=== PATIENT | female | born 1945 | race Caucasian/White ===

== ENCOUNTER 2018-04-24 22:27 | Inpatient (IN) | payer OTHER ==
[2018-04-24] MEDS ORDERED: ONDANSETRON 4 MG/2 ML VIAL ONE (23:08)
[2018-04-24 23:24] LABS: Absolute Lymphocytes (CBC) 3.3 K/uL (0.7-4.9); Absolute Monocytes 0.4 K/uL (0.1-1.3); Absolute Neutrophil 5.5 K/uL (1.8-8.0); Basophils % 0.5 % (0-1.3); Eosinophils % 1.7 % (0-4.4); Hematocrit 38.5 % (36.0-45.0); Lymphocytes % 34.7 % (15.3-44.8); MCH 29.7 pg (27.0-35.0); MCV 86.3 fL (80-100); MPV 9.2 fL (7.6-11.3); Monocytes % 4.2 % (3.3-12.3); RBC Red Blood Cell Count 4.46 M/uL (3.86-4.86)
[2018-04-24] MEDS ORDERED: FENTANYL CITR 100 MCG/2 ML ONE (23:35)
[2018-04-24] MEDS ORDERED: FAMOTIDINE 20 MG/2 ML VIAL IV ONE (23:36)
[2018-04-24] MEDS ORDERED: NA CHLORIDE 0.9% 1,000 ML ONE (23:36)
[2018-04-24 23:42] LABS: Albumin 4.2 g/dL (3.4-5.0); Bilirubin Direct 0.1 mg/dL (0-0.2); Bilirubin Total 0.4 mg/dL (0.2-1.0); Potassium 3.5 mmol/L (3.5-5.1); Protein, Total 8.1 g/dL (6.4-8.2)
--- NOTE | 2018-04-25 03:50 | EDPHYS ---
Physician Documentation [facility] Name: Angle Hammer Age: 72 yrs Sex: Female : 1945 Arrival Date: 04/24/2018 Time: 22:27 Bed 18 Private MD: ED Physician Larry Lynn HPI: 04/24 23:25 This 72 yrs old Female presents to ER via Wheelchair with complaints of cp Abdominal Pain, Vomiting. 23:25 The patient presents with abdominal pain in the epigastric area, in the upper abdomen. cp Onset: The symptoms/episode began/occurred tonight about 1930. Associated signs and symptoms: Pertinent positives: nausea and vomiting, Pertinent negatives: blood in stools, chest pain, constipation, diarrhea, fever, headache, vomiting blood. Severity of pain: in the emergency department the pain is unchanged despite home interventions. Historical: - Allergies: 22:51 No Known Allergies; bb - Home Meds: 22:51 amlodipine 2.5 mg tab 1 tab once daily [Active]; aspirin 81 mg Oral chew 1 tab once bb daily [Active]; atorvastatin 20 mg Oral tab 1 tab once daily [Active]; gemfibrozil 600 mg Oral tab 1 tab 2 times per day [Active]; glimepiride 1 mg Oral tab BID [Active]; lisinopril 5 mg Oral tab 1 tab once daily [Active]; metformin 850 mg Oral tab 1 tab 2 times per day [Active]; omeprazole 40 mg Oral cpDR 1 cap once daily [Active]; - PMHx: 22:51 Diabetes - NIDDM; High Cholesterol; Hypertension; bb - PSHx: 22:51 Hysterectomy; bb - Immunization history:: Adult Immunizations up to date. - Social history:: Smoking status: Patient/guardian denies using tobacco, Patient/guardian denies using alcohol, street drugs. - Ebola Screening: : No symptoms or risks identified at this time. ROS: 23:30 Constitutional: Negative for body aches, chills, fever, poor PO intake. cp 23:30 Eyes: Negative for injury, pain, redness, and discharge. cp 23:30 ENT: Negative for drainage from ear(s), ear pain, sore throat, difficulty swallowing, difficulty handling secretions. 23:30 Cardiovascular: Negative for chest pain, edema, palpitations. 23:30 Respiratory: Negative for cough, shortness of breath, wheezing. 23:30 Abdomen/GI: Positive for abdominal pain, nausea, vomiting, of the epigastric area and upper abdomen, Negative for diarrhea, constipation, anorexia, hematemesis, black/tarry stool, rectal bleeding. 23:30 Back: Negative for pain at rest, pain with movement, radiated pain. 23:30 : Negative for urinary symptoms. 23:30 Skin: Negative for cellulitis, rash. 23:30 Neuro: Negative for altered mental status, headache, syncope, near syncope, weakness. 23:30 All other systems are negative. Exam: 23:10 ECG was reviewed by the Attending Physician. cp 23:35 Constitutional: The patient appears in no acute distress, alert, awake, cp non-diaphoretic, non-toxic, well developed, well nourished, uncomfortable. 23:35 Head/Face: Normocephalic, atraumatic. cp 23:35 Eyes: Periorbital structures: appear normal, Pupils: equal, round, and reactive to light and accomodation, Extraocular movements: intact throughout, Conjunctiva: normal, no exudate, no injection, Sclera: no appreciated abnormality, Lids and lashes: appear normal, bilaterally. 23:35 ENT: External ear(s): are unremarkable, Nose: is normal, Mouth: Lips: moist, Oral mucosa: moist, Posterior pharynx: is normal, airway is patent, no erythema, no exudate, Voice: is normal. 23:35 Neck: ROM/movement: is normal, is supple, without pain, no range of motions limitations, no nuchal rigidity. 23:35 Chest/axilla: Inspection: normal, Palpation: is normal, no crepitus, no tenderness. 23:35 Cardiovascular: Rate: normal, Rhythm: regular, Pulses: Pulses are 2+ in right radial artery and left radial artery. Edema: is not appreciated, JVD: is not appreciated. 23:35 Respiratory: the patient does not display signs of respiratory distress, Respirations: normal, no use of accessory muscles, no retractions, no splinting, no tachypnea, labored breathing, is not present, Breath sounds: are clear throughout, no decreased breath sounds, no stridor, no wheezing. 23:35 Abdomen/GI: Inspection: abdomen appears normal, Bowel sounds: active, all quadrants, Palpation: soft, in all quadrants, moderate abdominal tenderness, in the epigastric area, rebound tenderness, is not appreciated, voluntary guarding, is elicited in the epigastric area, involuntary guarding, is not appreciated. 23:35 Back: CVA tenderness, is absent. 23:35 Skin: cellulitis, is not appreciated, no rash present. 23:35 Neuro: Orientation: to person, place \T\ time. Mentation: lucid, able to follow commands, Cerebellar function: is grossly normal, Motor: moves all fours, strength is normal, Sensation: no obvious gross deficits. Vital Signs: 22:51 BP 136 / 117; Pulse 78; Resp 20 S; Temp 97.7(O); Pulse Ox 97% on R/A; Weight 68.49 kg bb (R); Height 5 ft. 2 in. (157.48 cm) (R); Pain 10/10; 23:50 BP 113 / 50; Pulse 70; Resp 18; Pulse Ox 97% ; ea 04/25 00:52 BP 133 / 60; Pulse 74; Resp 18; Pulse Ox 99% ; Pain 5/10; ea 02:48 BP 118 / 65; Pulse 79; Resp 18; Pulse Ox 96% ; ea 03:30 BP 118 / 61; Pulse 74; Resp 18; Pulse Ox 97% on R/A; ea 04:55 BP 136 / 65; Pulse 79; Resp 16; Temp 97.8(O); Pulse Ox 94% on R/A; ea 04/24 22:51 Body Mass Index 27.62 (68.49 kg, 157.48 cm) bb MDM: 04/24 22:49 Patient medically screened. cp 23:30 Differential diagnosis: bowel obstruction, cholecystitis, Cholelithiasis, cp diverticulitis, gastritis, gastroesophageal reflux disease, GI Bleed, Mesenteric ischemia or infarction, pancreatitis, Peptic Ulcer Disease, Perf. Duodenal Ulcer, Perf. Gastric Ulcer, Pyelonephritis, Ureterolithiasis, urinary tract infection, acute MN. 04/25 03:47 Data reviewed: vital signs, nurses notes, lab test result(s), EKG, radiologic studies, cp CT scan, plain films, and as a result, I will admit patient. Test interpretation: by ED physician or midlevel provider: ECG, plain radiologic studies. Counseling: I had a detailed discussion with the patient and/or guardian regarding: the historical points, exam findings, and any diagnostic results supporting the discharge/admit diagnosis, lab results, radiology results, the need for further work-up and treatment in the hospital. Response to treatment: the patient's symptoms have markedly improved after treatment. 04/24 22:48 Order name: Amylase, Serum; Complete Time: 03:00 04/24 22:48 Order name: Basic Metabolic Panel; Complete Time: 03:00 04/25 03:01 Interpretation: Normal except: GLUC 163; GFR 61. 04/24 22:48 Order name: CBC with Diff; Complete Time: 03:00 04/25 03:01 Interpretation: Normal except: PLT 426. 04/24 22:48 Order name: Hepatic Function; Complete Time: 03:00 04/25 03:01 Interpretation: Normal except: ALK 132; GLOB 3.9. 04/24 22:48 Order name: Lipase; Complete Time: 03:00 04/24 22:48 Order name: Urine Microscopic Only 04/24 23:18 Order name: Troponin I; Complete Time: 03:00 04/25 03:01 Interpretation: Within normal limits: TROP < 0.02. 04/25 03:58 Order name: Basic Metabolic Panel [facility] 04/25 03:58 Order name: Basic Metabolic Panel [facility] 04/25 03:58 Order name: CBC with Automated Diff [facility] 04/25 03:58 Order name: CBC with Automated Diff [facility] 04/25 03:58 Order name: Lipase [facility] 04/25 03:58 Order name: Lipase [facility] 04/24 23:18 Order name: XRAY Chest (1 view) 04/24 23:18 Order name: CT Abd/Pelvis - W/Contrast 04/24 23:18 Order name: EKG; Complete Time: 23:18 04/25 03:58 Order name: CONS Physician Consult [facility] 04/25 03:58 Order name: NPO [facility] 04/25 03:58 Order name: Liver (Hepatic) Function [facility] 04/25 03:58 Order name: Liver (Hepatic) Function [facility] 04/25 04:47 Order name: Urine Dipstick--Ancillary (enter results) rg2 04/24 22:48 Order name: IV Saline Lock; Complete Time: 23:42 04/24 22:48 Order name: Labs collected and sent; Complete Time: 23:42 ea 04/24 22:48 Order name: Urine Dipstick-Ancillary (obtain specimen); Complete Time: 05:09 ea 04/24 23:18 Order name: EKG - Nurse/Tech; Complete Time: 23:42 cp 04/25 03:47 Order name: NG Tube; Complete Time: 04:48 cp 04/25 03:47 Order name: NPO; Complete Time: 03:52 cp EC/17 23:10 Rate is 72 beats/min. Rhythm is regular. MO interval is normal. QRS interval is normal. cp QT interval is normal. Interpreted by me. Reviewed by me. Administered Medications: 23:24 Drug: Zofran 4 mg Route: IVP; Site: left antecubital; 04/25 00:49 Follow up: Response: No adverse reaction 04/24 23:41 Drug: Pepcid 20 mg Route: IVP; Site: left antecubital; ea 04/25 00:48 Follow up: Response: No adverse reaction 04/24 23:42 Drug: NS 0.9% 1000 ml Route: IV; Rate: 75 ml/hr; Site: left antecubital; ea 04/25 05:06 Follow up: IV Status: Infusion continued upon admission 04/24 23:42 Drug: NS 0.9% 1000 ml Route: IV; Rate: 1 bolus; Site: left antecubital; ea 04/25 00:45 Follow up: Response: No adverse reaction; IV Status: Completed infusion; IV Intake: ea 1000ml 00:50 Follow up: Response: No adverse reaction; IV Intake: 1000ml 04/24 23:42 Drug: fentaNYL (PF) 25 mcg Route: IVP; Site: left antecubital; ea 04/25 00:00 Follow up: Response: No adverse reaction; Pain is decreased ea 00:35 Drug: fentaNYL (PF) 25 mcg Route: IVP; Site: left antecubital; ea 01:00 Follow up: Response: No adverse reaction; Pain is decreased ea 04:00 Drug: Ciprofloxacin 400 mg Volume: 200 ml; Route: IVPB; Infused Over: 60 mins; Site: ea left antecubital; 05:00 Follow up: Response: No adverse reaction; IV Status: Infusion continued upon admission ea 04:47 Drug: metroNIDAZOLE 500 mg Volume: 100 ml; Route: IVPB; Infused Over: 30 mins; Site: ea left antecubital; 04:59 Follow up: Response: No adverse reaction; IV Status: Infusion continued upon admission ea Disposition: 04/25/18 03:49 Hospitalization ordered by Liam Mccray for Inpatient Admission. Preliminary diagnosis is Small Bowel Obstruction. - Bed requested for Telemetry/MedSurg (Inpatient). - Status is Inpatient Admission. ea - Condition is Stable. - Problem is new. - Symptoms have improved. UTI on Admission? No Addendum: 04/27/2018 08:58 Co-signature as Attending Physician, Larry Lynn MD I agree with the assessment and c doyle plan of care. Signatures: Dispatcher [facility] Orly Storm RN RN mw Anderson, Corey, MD MD cha Ballard, Brenda, RN RN Larry Segura PA PA cp Antunez, Elena, RN RN ea Corrections: (The following items were deleted from the chart) 04/24 23:22 22:48 Creatinine for Radiology+C.LAB.BRZ ordered. [facility] 04/25 03:58 03:49 Hospitalization Ordered by Liam Mccray MD for Inpatient Admission. Preliminary diagnosis is Small Bowel Obstruction. Bed requested for Telemetry/MedSurg (Inpatient). Status is Inpatient Admission. Condition is Stable. Problem is new. Symptoms have improved. UTI on Admission? No. cp 05:09 03:58 04/25/2018 03:49 Hospitalization Ordered by Liam Mccray MD for Inpatient ea Admission. Preliminary diagnosis is Small Bowel Obstruction. Bed requested for Telemetry/MedSurg (Inpatient). Status is Inpatient Admission. Condition is Stable. Problem is new. Symptoms have improved. UTI on Admission? No. mw
--- NOTE | 2018-04-25 03:50 | ER ---
Nurse's Notes [facility] Name: Angle Hammer Age: 72 yrs Sex: Female : 1945 Arrival Date: 04/24/2018 Time: 22:27 Bed 18 Private MD: Diagnosis: Small Bowel Obstruction Presentation: 04/24 22:45 Presenting complaint: Patient states: she is having upper abdominal pain and vomiting bb since 1929 this evening spouse states pt became diaphoretic and pale and vomited on the way to the ED. Transition of care: patient was not received from another setting of care. Onset of symptoms was April 24, 2018 at 19:30. Risk Assessment: Do you want to hurt yourself or someone else? Patient reports no desire to harm self or others. Initial Sepsis Screen: Does the patient meet any 2 criteria? No. Patient's initial sepsis screen is negative. Does the patient have a suspected source of infection? No. Patient's initial sepsis screen is negative. Care prior to arrival: None. 22:45 Method Of Arrival: Wheelchair bb 22:45 Acuity: ARELI 3 bb Historical: - Allergies: 22:51 No Known Allergies; bb - Home Meds: 22:51 amlodipine 2.5 mg tab 1 tab once daily [Active]; aspirin 81 mg Oral chew 1 tab once bb daily [Active]; atorvastatin 20 mg Oral tab 1 tab once daily [Active]; gemfibrozil 600 mg Oral tab 1 tab 2 times per day [Active]; glimepiride 1 mg Oral tab BID [Active]; lisinopril 5 mg Oral tab 1 tab once daily [Active]; metformin 850 mg Oral tab 1 tab 2 times per day [Active]; omeprazole 40 mg Oral cpDR 1 cap once daily [Active]; - PMHx: 22:51 Diabetes - NIDDM; High Cholesterol; Hypertension; bb - PSHx: 22:51 Hysterectomy; bb - Immunization history:: Adult Immunizations up to date. - Social history:: Smoking status: Patient/guardian denies using tobacco, Patient/guardian denies using alcohol, street drugs. - Ebola Screening: : No symptoms or risks identified at this time. Screenin/18 00:51 Abuse screen: Denies threats or abuse. Nutritional screening: No deficits noted. ea Tuberculosis screening: No symptoms or risk factors identified. Fall Risk IV access (20 points). Assessment: 04/24 22:50 General: Appears uncomfortable, Behavior is calm, cooperative, appropriate for age. ea Pain: Complains of pain in epigastric area Pain radiates to mid back area, left mid back and right mid back Pain currently is 6 out of 10 on a pain scale. Quality of pain is described as aching. Neuro: Level of Consciousness is awake, alert, obeys commands, Oriented to person, place, time, situation. Cardiovascular: Heart tones S1 S2 present Patient's skin is warm and dry. Respiratory: Airway is patent Respiratory effort is even, unlabored, Respiratory pattern is regular, symmetrical, Breath sounds are clear bilaterally. GI: Abdomen is non-distended, Bowel sounds present X 4 quads. Abd is soft and non tender X 4 quads. : No signs and/or symptoms were reported regarding the genitourinary system. EENT: No signs and/or symptoms were reported regarding the EENT system. Derm: Skin is dry, Skin is pale, Skin temperature is warm. Musculoskeletal: No signs and/or symptoms reported regarding the musculoskeletal system. 23:51 Reassessment: Patient and/or family updated on plan of care and expected duration. Pain ea level reassessed. Patient is alert, oriented x 3, equal unlabored respirations, skin warm/dry/pink. Pt reports pain has decreased. 04/25 00:35 Reassessment: Pt complaining of pain to epigastric area, provider notified, medication ea order obtained, medication administered. Pt tolerated well. 01:50 Reassessment: Patient and/or family updated on plan of care and expected duration. Pain ea level reassessed. Patient is alert, oriented x 3, equal unlabored respirations, skin warm/dry/pink. Pt left to CT. 02:47 Reassessment: Patient and/or family updated on plan of care and expected duration. Pain ea level reassessed. Patient is alert, oriented x 3, equal unlabored respirations, skin warm/dry/pink. Pt returned form radiology. 03:30 Reassessment: Patient and/or family updated on plan of care and expected duration. Pain ea level reassessed. Patient is alert, oriented x 3, equal unlabored respirations, skin warm/dry/pink. 04:56 Reassessment: Patient and/or family updated on plan of care and expected duration. Pain ea level reassessed. Patient is alert, oriented x 3, equal unlabored respirations, skin warm/dry/pink. Report called to Melisa AVILA on second floor. Vital Signs: 04/24 22:51 BP 136 / 117; Pulse 78; Resp 20 S; Temp 97.7(O); Pulse Ox 97% on R/A; Weight 68.49 kg bb (R); Height 5 ft. 2 in. (157.48 cm) (R); Pain 10/10; 23:50 BP 113 / 50; Pulse 70; Resp 18; Pulse Ox 97% ; ea 04/25 00:52 BP 133 / 60; Pulse 74; Resp 18; Pulse Ox 99% ; Pain 5/10; ea 02:48 BP 118 / 65; Pulse 79; Resp 18; Pulse Ox 96% ; ea 03:30 BP 118 / 61; Pulse 74; Resp 18; Pulse Ox 97% on R/A; ea 04:55 BP 136 / 65; Pulse 79; Resp 16; Temp 97.8(O); Pulse Ox 94% on R/A; ea 04/24 22:51 Body Mass Index 27.62 (68.49 kg, 157.48 cm) bb ED Course: 04/24 22:27 Patient arrived in ED. ds1 22:44 Lisa Yusuf, MARGARITA is Primary Nurse. ea 22:49 Triage completed. bb 22:49 Larry Daley PA is PHCP. cp 22:49 Larry Lynn MD is Attending Physician. cp 22:49 Inserted saline lock: 20 gauge in left antecubital area, using aseptic technique. Blood ea collected. 22:51 Arm band placed on Patient placed in an exam room, on a stretcher, on pulse oximetry. bb Family accompanied patient. 23:31 X-ray completed. Portable x-ray completed in exam room. Patient tolerated procedure ml well. 23:32 XRAY Chest (1 view) In Process Unspecified. EDMS 23:50 Patient has correct armband on for positive identification. Bed in low position. Call ea light in reach. Side rails up X 1. 04/25 01:[address] via stretcher. kw1 02:03 CT completed. Patient tolerated procedure well. Patient moved back from CT. kw1 02:05 CT Abd/Pelvis - W/Contrast In Process Unspecified. EDMS 03:48 Liam Mccray MD is Hospitalizing Provider. cp 04:56 No provider procedures requiring assistance completed. Patient admitted, IV remains in ea place. Administered Medications: 04/24 23:24 Drug: Zofran 4 mg Route: IVP; Site: left antecubital; ea 04/25 00:49 Follow up: Response: No adverse reaction ea 04/24 23:41 Drug: Pepcid 20 mg Route: IVP; Site: left antecubital; ea 04/25 00:48 Follow up: Response: No adverse reaction ea 04/24 23:42 Drug: NS 0.9% 1000 ml Route: IV; Rate: 75 ml/hr; Site: left antecubital; ea 04/25 05:06 Follow up: IV Status: Infusion continued upon admission ea 04/24 23:42 Drug: NS 0.9% 1000 ml Route: IV; Rate: 1 bolus; Site: left antecubital; ea 04/25 00:45 Follow up: Response: No adverse reaction; IV Status: Completed infusion; IV Intake: ea 1000ml 00:50 Follow up: Response: No adverse reaction; IV Intake: 1000ml ea 04/24 23:42 Drug: fentaNYL (PF) 25 mcg Route: IVP; Site: left antecubital; ea 04/25 00:00 Follow up: Response: No adverse reaction; Pain is decreased ea 00:35 Drug: fentaNYL (PF) 25 mcg Route: IVP; Site: left antecubital; ea 01:00 Follow up: Response: No adverse reaction; Pain is decreased ea 04:00 Drug: Ciprofloxacin 400 mg Volume: 200 ml; Route: IVPB; Infused Over: 60 mins; Site: ea left antecubital; 05:00 Follow up: Response: No adverse reaction; IV Status: Infusion continued upon admission ea 04:47 Drug: metroNIDAZOLE 500 mg Volume: 100 ml; Route: IVPB; Infused Over: 30 mins; Site: ea left antecubital; 04:59 Follow up: Response: No adverse reaction; IV Status: Infusion continued upon admission ea Intake: 00:45 IV: 1000ml; Total: 1000ml. ea 00:50 IV: 1000ml; Total: 2000ml. ea Outcome: 03:49 Decision to Hospitalize by Provider. cp 04:57 Admitted to Med/surg accompanied by tech, room 212, Report called to Melisa AVILA ea 04:57 Condition: stable 05:09 Patient left the ED. albert Signatures: Dispatcher [employer] EDNerissa Klein ds1 Zari Coon RN RN bb Lopez, Melissa ml Page, Corey, PA PA cp Antunez, Elena, RN RN ea Wilhelm, Kimberly kw1
[2018-04-25] MEDS ORDERED: ONDANSETRON 4 MG/2 ML VIAL IV PRN (03:52)
[2018-04-25] MEDS ORDERED: ACETAMINOPHEN 500 MG TAB PO PRN (03:52)
[2018-04-25] MEDS ORDERED: LIDOCAINE VISCOUS 2% SOLN 15 ML UDC ONE (03:53)
[2018-04-25] MEDS ORDERED: D50W 25 GM/50 ML SYRINGE IV PRN ×2 (03:57→07:33)
[2018-04-25] MEDS ORDERED: GLUCAGON 1 MG/VIAL IM PRN ×2 (03:57→07:33)
[2018-04-25] MEDS ORDERED: METRONIDAZOLE 500mg IVPB 500 MG/100 ML BAG IV ONE (03:58)
[2018-04-25] MEDS ORDERED: Ciprofloxacin 200mg IV 200 MG/100 ML IV.SOLN. IV ONE (03:58)
[2018-04-25 05:34] LABS: Urine Bacteria <20 /HPF (<20); Urine Culture Reflex Order NOT NEEDED; Urine RBC NONE SEEN /HPF (NONE SEEN)
[2018-04-25] MEDS: NA CHLORIDE 0.9% 1,000 ML IV SCH ×3 (06:00→21:37)
--- NOTE | 2018-04-25 06:01 | EKG ---
Test Date: 2018-04-24 Test Time: 23:02:29 Band Sawing Machine Operator: MILADIS MEASUREMENT RESULTS: Intervals: Rate: 72 IL: 128 QRSD: 82 QT: 412 QTc: 451 [place]: P: 1 IL: 128 QRS: -4 T: 41 INTERPRETIVE STATEMENTS: Normal sinus rhythm Moderate voltage criteria for LVH, may be normal variant Borderline ECG Compared to ECG 03/31/2016 18:30:34 Left ventricular hypertrophy now present T-wave abnormality no longer present Electronically Signed On 04-25-18 06:01:17 CDT by Phillip Luna
[2018-04-25] MEDS ORDERED: FENTANYL CITR 100 MCG/2 ML IV ONE (06:12)
[2018-04-25] MEDS ORDERED: FENTANYL CITR 100 MCG/2 ML IV PRN (06:13)
[2018-04-25] MEDS ORDERED: INSULIN -REGULAR HUMAN 50 UNIT/0.5 ML ML SQ SCH (07:30)
[2018-04-25] MEDS ORDERED: PNEUMOCOCCAL VACCINE 0.5 ML IMVAC ONE (10:00)
--- NOTE | 2018-04-25 10:13 | RAD REPORT ---
EXAM DESCRIPTION: CT - Abdomen Pelvis W Contrast - 04/25/2018 7:04 am CLINICAL HISTORY: Abdominal pain. Upper abdominal pain since 04/06 this evening COMPARISON: March 2018 TECHNIQUE: Computed axial tomography of the abdomen and pelvis was obtained. 100 cc Isovue-300 is ad ministered intravenously. Oral contrast was given.A a preliminary report was generated by ROLI and reviewed prior to this dictation All CT scans are performed using dose optimization technique as appropriate and may include automated exposure control or mA/KV adjustment according to patient size. FINDINGS: Fatty infiltration liver is present. Spleen, pancreas, adrenals and kidneys appear unremarkable. Several loops of small bowel are mildly dilated within left abdomen. Stranding is present within the adjacent mesentery with small amount of fluid. Diverticula are noted. The wall of the distal stomach appears thickened IMPRESSION: Mild dilatation of several loops of small bowel probably either representing an enteriti s or diverticulitis. A partial small bowel obstruction is considered less likely and can be monitored on followup abdominal plain film series. Apparent thickening of the wall of the distal stomach may be secondary to incomplete distention or ga stritis
--- NOTE | 2018-04-25 11:22 | RAD REPORT ---
EXAM DESCRIPTION: Janki Single View04/24/2018 11:32 pm CLINICAL HISTORY: Abdominal pain COMPARISON: 2015 FINDINGS: The lungs appear clear of acute infiltrate. The heart is normal size IMPRESSION: No acute abnormalities displayed
[2018-04-25] MEDS: INSULIN -REGULAR HUMAN 50 UNIT/0.5 ML ML SQ SCH ×2 (12:00→18:00)
[2018-04-25] MEDS ORDERED: ENOXAPARIN 40 MG/0.4 ML SQ ONE (12:19)
--- NOTE | 2018-04-25 12:52 | P.CNS ---
Date of Consult: 04/25/18 PC: This 72-year-old female presents emergency room with severe abdominal pain nausea vomiting for diagnosis and treatment. HPC: Patient apparently had a nice dinner, roast, potatoes beans and Septra. Shortly thereafter began experiencing severe abdominal pain with nausea and vomiting. She was brought to the emergency room for evaluation. PMH: Hypercholesterolemia, hypertension, diabetes PSHx: Hysterectomy in the past SOC: No known allergies SYS REVIEW: States he has otherwise been healthy, no cough, wheeze, shortness of breath. No chest pain or palpitations. No urinary complaints. Her last colonoscopy was about 3 years ago O/E awake alert comfortable at the moment HEENT: Nasogastric tube in place, minimal in collection canister Chest: Chest movement equal bilaterally ABD: Soft nontender, nondistended LOCO: Intact DATA: White cell count within normal limits, CT scan suggests possible early SBO IMPRESSION: Benign abdomen at the moment PLAN: Hopefully slow mineral oil down here nasogastric tube in reviewed for 4 hr. We will Dc the NG tube, and ambulate the patient. I mention this patient will be discharged soon as she does not seem to have a surgical abdomen.
[2018-04-25] MEDS: METRONIDAZOLE 500mg IVPB 500 MG/100 ML BAG IV SCH ×2 (13:57→18:04)
[2018-04-25] MEDS ORDERED: MINERAL OIL 30 ML UCUP FT ONE ×2 (15:00→21:00)
--- NOTE | 2018-04-25 16:02 | RAD REPORT ---
EXAM DESCRIPTION: RAD - Abdomen Acute Series - 04/25/2018 3:30 pm CLINICAL HISTORY: Abdominal pain FINDINGS: Free air is not seen beneath the diaphragm. The lungs appear clear. A nasogastric tube is coiled within the proximal stomach. The tip lies near the GE junction. The tube should be retracted approximately 15 centimeters and then advanced Contrast is present within the colon. Dilated air-filled small bowel is not seen
[2018-04-25] MEDS: CIPROFLOXACIN 400mg IV 400 MG/200 ML BAG IV SCH (21:37)
--- NOTE | 2018-04-26 00:38 | HP ---
Date of Admission: 04/25/2018 Chief Complaint: Abdominal pain, nausea, vomiting. History Of Present Illness: A 72-year-old female patient who came into emergency room with acute ons et of abdominal pain within 2 hours after she ate her dinner last night. Pain was in left upper quad rant and epigastric region. Initially, pain was intermittent and then it was continuous. She had so me nausea, vomiting at home. After she came into emergency room, she vomited some more and after fur ther evaluation she was admitted to the hospital under my service. She was feeling better this morni ng. The patient denies any constipation or diarrhea. She normally has bowel movement every day. He r last bowel movement at home was yesterday morning and she did have bowel movement during nighttime after she came into her room from emergency room. Allergies: NO KNOWN ALLERGIES. Review of Systems: GI: As mentioned above. All other systems reviewed and negative. Medications: List reviewed. According to office records, she is on amlodipine 2.5 mg p.o. daily; as pirin 81 mg p.o. daily; atorvastatin 20 mg p.o. daily; gemfibrozil 600 mg p.o. 2 times a day; glimepi ride 2 mg and she takes half a tablet 2 times a day; lisinopril 5 mg p.o. daily; metformin 850 mg p.o . 2 times a day; multivitamin daily; fish oil daily; omeprazole 40 mg p.o. daily. Past Medical History: Significant for mixed hyperlipidemia, type 2 diabetes mellitus, gastroesophage al reflux disease, diverticulosis, hypertension, anemia, osteoarthritis at multiple sites. Past Surgical History: Significant for hysterectomy. Social History: Negative for smoking or alcohol use. Family History: Significant for lung cancer, hypertension, hyperlipidemia, COPD. Physical Examination: Vital Signs: When I first saw her this morning, temperature 97.1, pulse 82, respiratory rate 16, blo od pressure 131/60, oxygen saturation 93%. Height 5 feet 2 inches, weight 153 pounds. General: Awake, alert, oriented, not in distress. HEENT: Head atraumatic, normocephalic. Conjunctivae nonerythematous. Sclerae white. Mouth, no thr ush or edema noted. Ears/Nose, no mass, lesion, discharge noted. Neck: Supple. No JVD, lymph nodes, bruit, thyromegaly noted. Lungs: Bilateral good equal air entry. Clear to auscultation. No rhonchi. No rales. Heart: Normal heart sounds, no murmur or gallop. Abdomen: Soft. Appears slightly distended. No guarding, rigidity. No rebound tenderness. No hepa tosplenomegaly, bruit. Presence of left upper quadrant tenderness present. No rebound tenderness. Bowel sounds normoactive. Extremities: No leg edema. No calf tenderness. Skin: No rash, ulcer, cellulitis. Lymphatics: No lymph node enlargement in neck, supraclavicular, infraclavicular region. Neuro: No focal neurological deficit. Chest: Unremarkable. External Genitalia: Deferred. Rectal: Deferred. Laboratory Data: White count 9.4, hemoglobin 13.2, platelets 426. Sodium 141, potassium 3.5, chlori de 104, bicarb 27, BUN 14, creatinine 0.90, glucose 163. Liver function tests unremarkable. Alkalin e phosphatase 132, troponin less than 0.02, lipase 94, amylase 27. Urinalysis unremarkable. CAT sca n of abdomen and pelvis done in emergency room shows mild dilatation of several loops of small bowel, probably either representing enteritis or diverticulitis. Partial small bowel obstruction is consid ered less likely. Impression: 1.Enteritis, infectious. 2.Rule out bowel obstruction. 3.Hypertension. 4.Mixed hyperlipidemia. 5.Type 2 diabetes mellitus. 6.Gastroesophageal reflux disease. 7.Osteoarthritis, multiple sites. Plan: Admit the patient to hospital for further evaluation and management of this problem. The agatha ent is appropriate for inpatient and is expected to spend 2 midnights in the hospital. She has IV fl uid, NG tube in place, IV antibiotics in placed. We will continue current medications per order. Ho de medications will be continued per order. We will get abdominal x-ray done today flat and upright, and general surgeon, Dr. Grace has been consulted, we will follow up with him. Depending on abdom inal x-ray and Dr. Grace's recommendation, we will decide at what point to remove NG tube. The pat ient was advised to move her both lower extremity as taught today to reduce chances of DVT and we garth l start Lovenox injection 40 mg subcutaneous injection daily for DVT prophylaxis. Details and plan o f treatment discussed with her. NATHEN/GREGORY Voice ID: [id number]
[2018-04-26] MEDS: METRONIDAZOLE 500mg IVPB 500 MG/100 ML BAG IV SCH ×4 (00:51→17:57)
[2018-04-26 05:27] LABS: Absolute Lymphocytes (CBC) 1.7 K/uL (0.7-4.9); Absolute Monocytes 0.2 K/uL (0.1-1.3); Absolute Neutrophil 2.9 K/uL (1.8-8.0); Basophils % 0.3 % (0-1.3); Eosinophils % 1.6 % (0-4.4); Hematocrit 28.3 % (36.0-45.0); Lymphocytes % 34.9 % (15.3-44.8); MCH 29.3 pg (27.0-35.0); MCV 87.4 fL (80-100); MPV 8.6 fL (7.6-11.3); Monocytes % 4.7 % (3.3-12.3); RBC Red Blood Cell Count 3.23 M/uL (3.86-4.86)
[2018-04-26 05:47] LABS: ALT/SGPT 22 U/L (12-78); AST/SGOT 32 U/L (15-37); Alkaline Phosphatase 99 U/L (45-117); BUN Blood Urea Nitrogen 9 mg/dL (7-18); Bicarbonate 28 mmol/L (21-32); Bilirubin Direct < 0.1 mg/dL (0-0.2); Bilirubin Total 0.3 mg/dL (0.2-1.0); Glucose Level 110 mg/dL (74-106); Lipase 44 U/L (73-393); Protein, Total 5.8 g/dL (6.4-8.2); Sodium Level 145 mmol/L (136-145)
[2018-04-26 05:51] LABS: Potassium 2.9 mmol/L (3.5-5.1)
[2018-04-26] MEDS: KCL 20 MEQ/100 mL IVPB 20 MEQ/100 ML BAG IV SCH ×3 (07:31→12:12)
[2018-04-26] MEDS ORDERED: ENOXAPARIN 40 MG/0.4 ML SQ SCH (09:00)
[2018-04-26] MEDS: CIPROFLOXACIN 400mg IV 400 MG/200 ML BAG IV SCH ×2 (09:31→21:15)
[2018-04-26] MEDS: NA CHLORIDE 0.9% 1,000 ML IV SCH ×2 (10:00→17:20)
[2018-04-26 10:53] VITALS: O2SAT 95
[2018-04-26] MEDS: INSULIN -REGULAR HUMAN 50 UNIT/0.5 ML ML SQ SCH ×3 (12:00→18:00)
--- NOTE | 2018-04-26 13:41 | P.PN ---
Date of Service: 04/26/18 S: Patient feels much better today, nasogastric tube is been removed, and she is tolerating a full liquid diet. Her pain is resolved. She states she feels much better. O: Abdomen is soft, nontender, no guarding or rebound. Does not appear to be distended. A: Symptoms of partial small bowel obstruction appear to have resolved both clinically and physically. P: Patient is having carried diet is advanced to regular. She will be reassessed in the morning a most likely discharged at that time. We have discussed her diet, and mastication of her food. She understands and will work on this at future.
--- NOTE | 2018-04-26 14:19 | PN ---
Date of Progress Note: 04/26/2018 Subjective: The patient was seen this morning for followup. No new complaints or problems reported. Her NG tube was present, but it was disconnected from suction yesterday per Dr. Grace. She denie s any nausea or vomiting. She does report having bowel movement last night. Denies any abdominal pa in. Objective: Vital signs: Reviewed. HEENT: Unremarkable. Lungs: Clear to auscultation. Heart: Sounds normal. Abdomen: Soft. Bowel sounds normal. No guarding, rigidity, tenderness, or distention. Extremities: No leg edema. Laboratory Data: White count 4.9, hemoglobin 9.5, platelets 210. Sodium 145, potassium 2.9, chlorid e 110, bicarbonate 28, BUN 9, creatinine 0.40, glucose 110. Liver function tests unremarkable. Lipa se 44. Impression: 1.Enteritis. 2.Hypokalemia. 3.Anemia. 4.Hypertension. 5.Diabetes mellitus. Plan: We will go ahead and remove NG tube. Patient does not have any evidence of bowel obstruction. Surgical consultation from Dr. Grace is appreciated. Abdominal x-ray from yesterday was unremark able. No evidence of bowel obstruction. After we remove NG tube this morning, we will start on d[place] r liquid diet and advance her diet as tolerated. I did advise her to start ambulating as she tolerat es and also we will replace electrolyte, which is her potassium as per protocol. I will see her tomorrow morning. Possi ble discharge to go home tomorrow. NATHEN/MODL Voice ID: [id number] Report ID: [id number]
[2018-04-26 19:43] LABS: BUN Blood Urea Nitrogen 7 mg/dL (7-18); Bicarbonate 30 mmol/L (21-32); Glucose Level 156 mg/dL (74-106); Potassium 4.8 mmol/L (3.5-5.1); Sodium Level 145 mmol/L (136-145)
[2018-04-26] MEDS ORDERED: AMLODIPINE 5 MG TAB PO ONE (20:43)
[2018-04-26] MEDS ORDERED: GLUCAGON 1 MG/VIAL IM PRN (21:09)
[2018-04-26] MEDS ORDERED: D50W 25 GM/50 ML SYRINGE IV PRN (21:09)
[2018-04-27] MEDS: METRONIDAZOLE 500mg IVPB 500 MG/100 ML BAG IV SCH ×2 (00:44→05:28)
[2018-04-27 05:10] VITALS: BMI 27.8
[2018-04-27 05:19] LABS: Absolute Lymphocytes (CBC) 1.7 K/uL (0.7-4.9); Absolute Monocytes 0.2 K/uL (0.1-1.3); Absolute Neutrophil 2.7 K/uL (1.8-8.0); Basophils % 0.4 % (0-1.3); Eosinophils % 2.6 % (0-4.4); Hematocrit 29.6 % (36.0-45.0); Lymphocytes % 35.1 % (15.3-44.8); MCV 87.4 fL (80-100); MPV 8.5 fL (7.6-11.3); RBC Red Blood Cell Count 3.39 M/uL (3.86-4.86)
[2018-04-27 05:27] LABS: BUN Blood Urea Nitrogen 5 mg/dL (7-18); Bicarbonate 30 mmol/L (21-32); Glucose Level 125 mg/dL (74-106); Magnesium 1.9 mg/dL (1.8-2.4); Potassium 3.9 mmol/L (3.5-5.1); Sodium Level 144 mmol/L (136-145)
[2018-04-27] MEDS ORDERED: POTASSIUM 25 MEQ EFFERV TAB PO ONE (05:35)
[2018-04-27] MEDS ORDERED: PANTOPRAZOLE 40MG TABLET PO SCH (06:00)
[2018-04-27] MEDS ORDERED: INSULIN -REGULAR HUMAN 50 UNIT/0.5 ML ML SQ SCH (07:30)
[2018-04-27] MEDS ORDERED: LISINOPRIL 5 MG TAB PO SCH (09:00)
[2018-04-27 10:17] VITALS: BP 146/62; TEMP 98.1
--- NOTE | 2018-04-28 05:46 | DS ---
Date of Discharge: 04/27/2018 Disposition: Discharged to go home. Physical Examination: HEENT: Unremarkable. Lungs: Clear to auscultation. Heart: Sounds normal. Abdomen: Soft. Bowel sounds normal. No guarding, rigidity, tenderness, or distention. Extremities: No leg edema. Laboratory Data: Initial white count 9.4, hemoglobin 13.2, platelets 426. This morning, white count 4.7, hemoglobin 10.1, platelets 223. Yesterday, hemoglobin was 9.5. Chemistry: Sodium today 144, potassium 3.9, chloride 108, bicarb 30, BUN 5, creatinine 0.50, glucose 125, magnesium . Discharge Medications And Instructions: 1.Continue all prior home medications. 2.Take Cipro 500 mg twice a day and metronidazole 500 mg 3 times a day for 1 week. 3.Follow up at my office per scheduled appointment. Hospital Course: This is a 72-year-old female patient admitted to hospital under my service after sh e came into emergency room with abdominal pain, nausea, vomiting. Please see dictated H and P for mo re information. After she was evaluated in the ER, she was admitted to the hospital. CAT scan of e abdomen done in the emergency room raised possibility of small bowel obstruction, it definitely did show some changes of enteritis. Initially, the patient was kept n.p.o. NG tube was placed in emerg ency room, which was attached to low intermittent suction, IV fluid, IV antibiotic was given. [facility] surgeon, Dr. Grace was consulted, and the patient did not require any surgical intervention. Day after admission, abdominal x-ray showed no evidence of bowel obstruction. Her NG tube was clamped a nd she did not have any nausea, vomiting, and subsequently as of yesterday NG tube was discontinued. Potassium was low yesterday, it was 2.9, and it was corrected with help of electrolyte replacement p rotocol. She was started on clear liquid diet, which was advanced as she tolerated. She started to ambulate well. DVT prophylaxis was given using Lovenox. Her condition overall improved. Abdominal pain, nausea, vomiting improved, and she was discharged to go home in stable condition with above-men tioned medication and instructions. Final Diagnoses: 1.Enteritis, infectious. 2.Hypokalemia. 3.Hypertension. 4.Anemia. 5.Mixed hyperlipidemia. 6.Type 2 diabetes mellitus. 7.Gastroesophageal reflux disease. 8.Osteoarthritis, multiple sites. NATHEN/MODL Voice ID: [id number] Report ID: [id number]
[2018-05-14 18:07] LABS: Urine Blood NEGATIVE (NEG); Urine Glucose NEGATIVE (NEG); Urine Protein TRACE (NEG)
== END 2018-04-27 09:37 | disposition home or self-care (01) | DRG 392 ==
LOC: ER 22:27 → ERHOLD 04-25 04:04 → 2ND 04-25 04:11
PROVIDERS: ADMIT Internal Medicine; ATTEND Internal Medicine
DX: A09 Infectious gastroenteritis and colitis, unspecified (principal); E87.6 Hypokalemia; I10 Essential (primary) hypertension; D64.9 Anemia, unspecified; E78.2 Mixed hyperlipidemia; E11.9 Type 2 diabetes mellitus without complications; K21.9 Gastro-esophageal reflux disease without esophagitis; M15.9 Polyosteoarthritis, unspecified; Z79.84 Long term (current) use of oral hypoglycemic drugs; Z79.82 Long term (current) use of aspirin
CPT/HCPCS: 36415; 71045; 74022; 74177; 80048; 80076; 81003; 81015; 82150; 82962; 83690; 83735; 84484; 85025; 93005; 96361; 96365; 96375; 99285; J0744; J1650; J2405; J3010; J7030; Q9967

== ENCOUNTER 2022-03-12 05:21 | Observation (INO) | payer OTHER ==
--- NOTE | 2022-03-08 08:53 | RAD REPORT ---
EXAM DESCRIPTION: RAD - Chest Pa And Lat (2 Views) - 03/08/2022 8:46 am CLINICAL HISTORY: Pre op pending knee arthroplasty COMPARISON: Abdomen Acute Series dated 04/25/2018; Chest Single View dated 04/24/2018; Chest Single Vi ew dated 03/31/2016 FINDINGS: Lines: None. Lungs: No evidence of edema or pneumonia. Left perihilar nodule versus vessel on end measuring 7 mill imeters. This was not identified on the prior radiographs. Pleural: No significant pleural effusions or pneumothorax. Cardiac: The heart size is within normal limits. Bones: No acute fractures. Other: IMPRESSION: No acute cardiopulmonary disease. Possible left perihilar nodule. Recommend nonemergent chest CT for further evaluation.
[2022-03-08 09:43] LABS: SARS-CoV-2 Antigen Rapid Res Negative (Negative)
--- NOTE | 2022-03-08 09:49 | EKG ---
Test Date: 2022-03-08 Test Time: 08:20:45 Cloth Edge Singer: EN MEASUREMENT RESULTS: Intervals: Rate: 73 MI: 130 QRSD: 84 QT: 362 QTc: 398 Toponas: P: 10 MI: 130 QRS: 4 T: 55 INTERPRETIVE STATEMENTS: Normal sinus rhythm Normal ECG Compared to ECG 04/24/2018 23:02:29 Left ventricular hypertrophy no longer present Electronically Signed On 03-08-22 09:48:28 CDT by Phillip Luna
[2022-03-08 10:09] LABS: Albumin 3.8 g/dL (3.4-5.0); Bilirubin Total 0.5 mg/dL (0.2-1.0); Potassium 3.5 mmol/L (3.5-5.1)
[2022-03-08 10:20] LABS: Absolute Lymphocytes (CBC) 1.4 K/uL (0.7-4.9); Hematocrit 33.3 % (36.0-45.0); Lymphocytes % 29.3 % (15.3-44.8); MCV 87.6 fL (80-100); MPV 8.5 fL (7.6-11.3)
[2022-03-08 10:39] LABS: Protime INR 1.05
[2022-03-08 11:05] LABS: Urine Color YELLOW (Yellow)
[2022-03-08 11:06] LABS: Urine Appearance CLEAR (Clear); Urine Bilirubin NEGATIVE (Negative); Urine Blood NEGATIVE (Negative); Urine Glucose NEGATIVE (Negative); Urine Protein NEGATIVE (Negative); Urine Urobilinogen 0.2 mg/dL (0.2-1.0)
[2022-03-08 11:07] LABS: Urine Microscopic Reflex ORDER UMIC
[2022-03-08 11:08] LABS: Urine Bacteria NONE SEEN /HPF (<20); Urine Mucus SLIGHT /HPF (NONE SEEN); Urine RBC <5 /HPF (NONE SEEN)
[2022-03-08 12:34] LABS: Blood Morphology Comment NOT SEEN (NOT SEEN); Platelet Estimate ADEQ
[2022-03-12] MEDS ORDERED: CELECOXIB 100 MG CAPSULE ONE (05:46)
[2022-03-12] MEDS ORDERED: GABAPENTIN 100 MG CAP ONE (05:46)
[2022-03-12] MEDS ORDERED: Oxycodone HCl/Acetaminophen 1 TAB TAB ONE (05:47)
[2022-03-12] MEDS ORDERED: ACETAMINOPHEN 500 MG TAB ONE (05:47)
[2022-03-12] MEDS ORDERED: CEFAZOLIN 2 GM IN 0.9% NACL 2 GM/100 ML BAG ONE (05:48)
[2022-03-12] MEDS: NA CHLORIDE 0.9% 1,000 ML ONE ×2 (05:58→07:07)
[2022-03-12] MEDS ORDERED: LIDOCAINE 1% MPF 5 ML VIAL ONE (06:06)
[2022-03-12] MEDS ORDERED: BUPIVACAINE 0.25% PF 10 ML VIAL ONE (06:06)
[2022-03-12] MEDS ORDERED: HYDROMORPHONE HCL 1 MG/ML INJ ONE (06:07)
[2022-03-12] MEDS ORDERED: FENTANYL CITR 100 MCG/2 ML ONE (06:07)
[2022-03-12] MEDS ORDERED: MIDAZOLAM HCL 2 MG/2 ML INJ ONE (06:07)
[2022-03-12] MEDS ORDERED: BUPIVACAINE 0.5% Inj,MDV 50 mL VIAL ONE (06:08)
[2022-03-12] MEDS ORDERED: dexAMETHasone 4 MG/ML VIAL ONE (06:08)
[2022-03-12] MEDS ORDERED: TRANEXAMIC ACID 1,000 MG/10 ML VIAL IV ONE (06:31)
[2022-03-12] MEDS ORDERED: propofoL 200 MG/20 ML VIAL IV ONE (07:15)
[2022-03-12] MEDS ORDERED: LIDOCAINE 2% MPF 5 ML VIAL ONE (07:15)
[2022-03-12] MEDS ORDERED: KETAMINE HCL 500 MG/5 ML VIAL ONE (07:26)
[2022-03-12] MEDS ORDERED: EPHEDRINE SULF 50 MG/ML VIAL ONE (07:32)
[2022-03-12] MEDS ORDERED: ONDANSETRON 4 MG/2 ML VIAL ONE (07:38)
[2022-03-12] MEDS ORDERED: Ringers Lactate 1,000 ML IV ONE (08:21)
[2022-03-12] MEDS ORDERED: KETOROLAC 30 MG/ML INJ ONE (09:09)
[2022-03-12] MEDS ORDERED: DOCUSATE NA 100 MG CAP PO PRN (09:19)
--- NOTE | 2022-03-12 09:19 | P.BOP ---
Preoperative diagnosis: right knee arthritis Postoperative diagnosis: same Primary procedure: right total knee arthoplasty Estimated blood loss: 100 Anesthesia: General Complications: None Transferred to: Recovery Room Condition: Good
[2022-03-12 14:54] VITALS: BMI 26.5
[2022-03-12] MEDS: HYDROCODONE/APAP 7.5/325 MG TAB PO PRN (15:08)
[2022-03-12] MEDS: ONDANSETRON 4 MG/2 ML VIAL IV PRN (17:13)
[2022-03-12] MEDS: CEFAZOLIN 1 GM in NA CHLORIDE 0.9% 50 ML IVPB SCH (17:41)
--- NOTE | 2022-03-12 19:22 | OP ---
Date of Procedure: 03/12/2022 Surgeon: Clinton Valentin MD Preoperative Diagnosis: Severe right knee arthritis with pain, unresolved with conservative manageme nt and interfering with activities of daily living. Postoperative Diagnosis: Severe right knee arthritis with pain, unresolved with conservative managem ent and interfering with activities of daily living. Procedure: Right total knee arthroplasty using the [employer] total knee system. Estimated Blood Loss: 100 cc. Complications: There were no complications. Specimen: No pathology specimens sent. Indications: Ms. Hammer is a 76-year-old female who has been suffering with right knee pain for abilio e time. This persisted despite conservative measures. Risks, benefits, and alternatives of total kn ee arthroplasty were discussed with her. She states she understands everything and wishes to proceed . Description Of Procedure: The patient was taken to the operating room and was placed in supine posit ion. General anesthesia was obtained by staff. Following this, a well-padded tourniquet placed on s uperior right thigh. Right lower extremity was then prepped and draped in usual fashion for procedur e. After this, the knee was then elevated and exsanguinated and the knee is bent. The tourniquet wa s raised. A standard anterior incision was made carefully through skin and soft tissues with meticul ous hemostasis being maintained using Bovie electrocautery. This leads down to the extensor mechanis m, which was then marked for later repair and a standard medial parapatellar arthrotomy was then perf ormed. The medial and lateral menisci as well as the ACL were resected and the intramedullary alignm ent guide was then placed without difficulty. The distal femoral cut was then made. After this had been sized, it appeared to be appropriately sized with a 65, however, there was a ridge of bone along the lateral aspect of the femur, which was slightly unusual. It appeared to progress off the femur. Decision was made not to oversize of the femur and to go ahead and use a 65. This does leave that ridge with a small amount of bony tissue, which is somewhat similar to a notch, but it is very thin a nd definitely on the lateral side. It was then smoothed using a saw. After remainder of the femoral cuts have been made, it was obvious that the 65 definitely could not be oversized anymore as it did o verhang slightly medially and laterally, however, anteroposteriorly, it may be a little small giving an AP slight mismatch, however, not address this as being severe. Attention was then turned to the t ibia where a tibial cut was made. The tibia was then trialed with the femur and it does come to full extension and is stable to varus and valgus stress and appears to have equal flexion and extension g aps. Attention was then turned to the patella, which was then calipered and cut. The trial patella has been placed, it is brought through range of motion and appeared to track extremely well. After t his the femoral box was then cut in standard fashion. After this, the bone plug was then placed and the tibia was punched. Surfaces were prepped for cementation and the final components, with the exce ption of the tibial polyethylene, were then placed with removal of all unsupported cement using the t rial poly. This was kept in extension and allowed to dry. After this, search was made for any other cement, none of which were seen. With the trial poly in, it appears to have full range of motion an d well balanced. Therefore, the final polyethylene was then placed with a locking bar. The wound wa s copiously irrigated again and the extensor mechanism was then closed using heavy Ethibond sutures, followed by closure of the skin using Vicryl followed by jadyn. The patient then placed in a very well-padded sterile dressing, awakened, and taken to recovery room in good condition. There were no complications. SE/MODL Voice ID: [id number] Report ID: [id number]
[2022-03-12] MEDS ORDERED: GLUCAGON 1 MG/VIAL IM PRN (19:54)
[2022-03-12] MEDS ORDERED: D50W 25 GM/50 ML SYRINGE IV PRN (19:54)
[2022-03-12] MEDS ORDERED: D10W 125 ML IV PRN (20:12)
[2022-03-12] MEDS: INSULIN -REGULAR HUMAN 50 UNIT/0.5 ML ML SQ SCH (21:18)
[2022-03-13] MEDS: CEFAZOLIN 1 GM in NA CHLORIDE 0.9% 50 ML IVPB SCH ×2 (00:52→08:55)
[2022-03-13] MEDS: HYDROCODONE/APAP 7.5/325 MG TAB PO PRN ×3 (03:50→20:25)
[2022-03-13 05:50] LABS: Hematocrit 28.4 % (36.0-45.0)
[2022-03-13] MEDS: ENOXAPARIN 30 MG/0.3 ML SQ SCH ×2 (06:13→17:35)
--- NOTE | 2022-03-13 07:02 | CON ---
Date of Consultation: 03/12/2022 Reason For Consultation: Medical management. History Of Present Illness: This is a 76-year-old very pleasant female patient of mine, who had righ t knee replacement surgery today by Dr. Valentin. The patient was admitted by Dr. Valentin to the hospital after surgery and I was consulted for medical management. When I saw her this evening, the patient was complaining of some nausea prior to my arrival and took some nausea medication. No abdom inal pain. No chest pain. No shortness of breath. No other complaints reported by her. Allergies: NO KNOWN ALLERGIES. Medications: Amlodipine 5 mg daily; aspirin 81 mg daily; atorvastatin 20 mg daily in the evening; Fe rrocite 1 tablet daily; gemfibrozil 600 mg 2 times a day; glimepiride 2 mg, takes half a tablet 2 juan daniel es a day; lisinopril 5 mg daily, in the evening time; metformin 1000 mg, 2 times a day; omeprazole 40 mg daily; and potassium chloride 99 mg daily. Review of Systems: GI: As mentioned above. Musculoskeletal: Right knee pain. All other systems reviewed and negative. Past Medical History: Significant for type 2 diabetes mellitus, hypertension, mixed hyperlipidemia, gastroesophageal reflux disease, diverticulosis, and anemia problem. Past Surgical History: Hysterectomy and right knee replacement surgery done today. Family History: Father had lung cancer and COPD. Mother had hypertension and hyperlipidemia. Social History: Negative for smoking and alcohol use. Physical Examination: Vital Signs: Weight 144 pounds, height 62 inches, temperature , pulse , respirat ory rate , blood pressure , oxygen saturation . General: Awake, alert, oriented, not in distress. HEENT: Head atraumatic, normocephalic. Conjunctivae nonerythematous. Sclerae white. Mouth, no thr ush or edema noted. Ears/Nose, no mass, lesion, discharge noted. Neck: Supple. No JVD, lymph nodes, bruit, thyromegaly noted. Lungs: Bilateral good equal air entry. Clear to auscultation. No rhonchi. No rales. Heart: Normal heart sounds, no murmur or gallop. Abdomen: Soft, bowel sounds normal. No guarding, rigidity, tenderness, mass, hepatosplenomegaly, dis tention, or bruit noted. Extremities: Right knee exam has surgical dressing present. Skin: No rash, ulcer, cellulitis. Lymphatics: No lymph node enlargement in neck, supraclavicular, infraclavicular region. Neuro: No focal neurological deficit. Chest: Unremarkable. External Genitalia: Deferred. Rectal: Deferred. Laboratory Data: On March 08, her outpatient labs prior to this surgery, white count 4.6, hemoglobin 1 1.6, platelets 249. Sodium 141, potassium 3.5, chloride 106, bicarb 30, BUN 14, creatinine 0.48, glu cose 148. Liver function tests unremarkable. Urinalysis unremarkable. COVID-[address] test negative[address] [facility] st x-ray results reviewed had shown 7 mm left parahilar pulmonary nodule, which is new compared to pr evious x-rays. Impression: 1.Diabetes mellitus. 2.Hypertension. 3.Hyperlipidemia. 4.Gastroesophageal reflux disease. 5.Diverticulosis. 6.Anemia. 7.Pulmonary nodule. Plan: We will go ahead and continue her diabetes management with insulin sliding scale. Starting to vidal, depending on her nausea problem, the patient may restart her metformin. We will wait on the glimepiride until her oral intake is more adequate. Rest of the home medications can be continued pe r order. The patient is getting Lovenox for DVT prophylaxis as ordered by her orthopedic surgeon and upon discharge from the hospital, recommended DVT prophylaxis treatment as per decision by her ortho pedic surgeon, whether that is Eliquis or Xarelto for 2 weeks. We will see her for followup next wee k as well. I will see her tomorrow morning for followup. NATHEN/MODL Voice ID: [id number] Report ID: [id number]
[2022-03-13] MEDS: INSULIN -REGULAR HUMAN 50 UNIT/0.5 ML ML SQ SCH ×4 (07:30→20:18)
--- NOTE | 2022-03-13 08:49 | RAD REPORT ---
EXAM DESCRIPTION: CT - Thorax Wo Con - 03/13/2022 7:42 am CLINICAL HISTORY: sob COMPARISON: Chest x-ray March 08, 2022 TECHNIQUE: Computed axial tomography of the chest was obtained. Contrast was not requested. All CT scans are performed using dose optimization technique as appropriate and may include automated exposure control or mA/KV adjustment according to patient size. FINDINGS: The evaluation of mediastinum, amauri and vessels is limited secondary to lack of IV contras t administration. A left lung nodule is not visualized. A few areas of subsegmental atelectasis are present within the lungs. No mediastinal or hilar lymphadenopathy is seen. A pleural effusion is not present. IMPRESSION: A few areas of subsegmental atelectasis within the lungs.
[2022-03-13] MEDS: ATORVASTATIN 20 MG TAB PO SCH (08:55)
[2022-03-13] MEDS: PANTOPRAZOLE 40MG TABLET PO SCH (08:56)
[2022-03-13] MEDS: AMLODIPINE 5 MG TAB PO SCH (08:56)
[2022-03-13] MEDS: ASPIRIN 81 MG CHEWABLE TABLET PO SCH (08:56)
[2022-03-13] MEDS: gemfibroziL 600 MG TAB PO SCH ×2 (08:56→20:23)
[2022-03-13] MEDS: METFORMIN HCL 500 MG TAB PO SCH ×2 (08:56→17:34)
[2022-03-13] MEDS: MAGNESIUM OXIDE 400 MG TAB PO SCH (08:56)
[2022-03-13] MEDS: FERROUS SULFATE 325 MG TAB PO SCH (08:57)
[2022-03-13] MEDS: POTASSIUM GLUCONATE 99 MG PO SCH (09:00)
[2022-03-13] MEDS: ONDANSETRON 4 MG/2 ML VIAL IV PRN (12:36)
[2022-03-13] MEDS ORDERED: lisinopriL 5 MG TAB PO SCH (17:30)
[2022-03-14 04:15] LABS: Hematocrit 26.7 % (36.0-45.0)
[2022-03-14] MEDS: ENOXAPARIN 30 MG/0.3 ML SQ SCH (05:03)
--- NOTE | 2022-03-14 06:36 | PN ---
Date of Progress Note: 03/13/2022 Subjective: Patient was seen this morning for followup. She was lying in bed, not in distress. No more nausea or vomiting overnight, feeling good. She did eat some food last night for her supper aft er I saw her. Objective: Vital Signs: Reviewed. HEENT: Unremarkable. Lungs: Clear to auscultation. Heart: Normal. Abdomen: Soft. Bowel sounds normal. No guarding, rigidity, tenderness, distention. Extremities: No leg edema. Laboratory Data: Hemoglobin this morning, 9.8. Impression: 1.Type 2 diabetes mellitus. 2.Hypertension. 3.Hyperlipidemia. 4.Anemia, unspecified. Plan: We will go ahead and continue current diabetes management and antihypertensive medication. Th e patient is getting anticoagulation therapy for DVT prophylaxis. Plan was for her to go home today. Medically, she was stable for discharge, but when she got up to start to ambulate, she was having s ome dizziness, so her discharge was canceled today, and she will be working with physical therapy, an d hopefully she might be able to go home tomorrow. I will see her tomorrow for followup. NATHEN/MODL Voice ID: [id number] Report ID: [id number]
[2022-03-14] MEDS: INSULIN -REGULAR HUMAN 50 UNIT/0.5 ML ML SQ SCH ×2 (07:30→11:30)
[2022-03-14 08:30] VITALS: O2SAT 95
[2022-03-14] MEDS: POTASSIUM GLUCONATE 99 MG PO SCH (08:39)
[2022-03-14] MEDS: gemfibroziL 600 MG TAB PO SCH (09:36)
[2022-03-14] MEDS: HYDROCODONE/APAP 7.5/325 MG TAB PO PRN (09:36)
[2022-03-14] MEDS: METFORMIN HCL 500 MG TAB PO SCH (09:36)
[2022-03-14] MEDS: FERROUS SULFATE 325 MG TAB PO SCH (09:36)
[2022-03-14] MEDS: ASPIRIN 81 MG CHEWABLE TABLET PO SCH (09:36)
[2022-03-14] MEDS: PANTOPRAZOLE 40MG TABLET PO SCH (09:36)
[2022-03-14] MEDS: AMLODIPINE 5 MG TAB PO SCH (09:37)
[2022-03-14] MEDS: MAGNESIUM OXIDE 400 MG TAB PO SCH (09:37)
[2022-03-14] MEDS: ATORVASTATIN 20 MG TAB PO SCH (09:37)
[2022-03-14 13:29] VITALS: BP 127/56; TEMP 98.1
--- NOTE | 2022-03-15 00:56 | PN ---
Date of Progress Note: 03/14/2022 Subjective: The patient was seen this morning for followup. She was lying in bed not in distress. Reports that yesterday when she got out of the bed, she was feeling dizzy and she was not able to amb ulate. Her nausea problem got better. She was able to tolerate diet well yesterday and this morning when I saw her she was feeling fine. Denies any nausea, vomiting. No chest pain. No shortness of breath. Objective: Vital Signs: Reviewed. HEENT: Unremarkable. Lungs: Clear to auscultation. Heart: Heart sounds normal. Abdomen: Soft. Bowel sounds normal. No guarding, rigidity, tenderness, or distention. Extremities: No leg edema. Labs: Hemoglobin 9.3. CAT scan of the chest done yesterday does not show any area of find ings reviewed with the patient. Impression: 1.Hypertension. 2.Diabetes mellitus. 3.Hyperlipidemia. Plan: We will go ahead and have the patient continue her current medications. I informed her that s he is stable for discharge from medical point of view and she will follow up with me next week. I doyle ve also instructed her that when she goes home, all her usual home medication, she should continue to take it except do not take glimepiride until Friday or she can start that earlier if she is able to have adequate amount of her normal level of food intake, then she will restart glimepiride at earlier time. The patient verbalized understanding. NATHEN/MODL Voice ID: [id number] Report ID: [id number]
== END 2022-03-14 16:29 | disposition home health service (06) ==
LOC: OR 05:21 → 2ND 09:54
PROVIDERS: ADMIT Orthopaedic Surgery; ATTEND Orthopaedic Surgery
PROC: 0SRC069 Replacement of Right Knee Joint with Oxidized Zirconium on Polyethylene Synthetic Substitute, Cemented, Open Approach (ICD-10-PCS; principal; 2022-03-12 07:00)
DX: M17.11 Unilateral primary osteoarthritis, right knee (principal); I10 Essential (primary) hypertension; E11.9 Type 2 diabetes mellitus without complications; E78.2 Mixed hyperlipidemia; D64.9 Anemia, unspecified; R11.0 Nausea; R91.1 Solitary pulmonary nodule; K21.9 Gastro-esophageal reflux disease without esophagitis; K57.90 Diverticulosis of intestine, part unspecified, without perforation or abscess without bleeding; Z79.82 Long term (current) use of aspirin; Z79.84 Long term (current) use of oral hypoglycemic drugs; Z79.899 Other long term (current) drug therapy; Z20.822 Contact with and (suspected) exposure to COVID-19; Z90.710 Acquired absence of both cervix and uterus; Z82.49 Family history of ischemic heart disease and other diseases of the circulatory system; Z80.1 Family history of malignant neoplasm of trachea, bronchus and lung; Z83.6 Family history of other diseases of the respiratory system
CPT/HCPCS: 93005; 87088; 85025; 87086; 36415 ×2; 86900; 86850; 85610; 86901; 82947 ×11; 88304; 88311; 85730; 85018 ×2; 85014 ×2; 80053; 71250; 71046; 97110 ×4; 97112; 97116 ×5; 97139 ×2; 97161; 97530 ×3; 94010; 87811; 27447; C1776 ×2; J2704; J1100; J1815 ×2; J1650 ×3; J2250; J3010; J1170; J0690 ×4; G0378 ×5; J7120; J7030; J2405 ×3; G0379; 81003; 81015

== ENCOUNTER 2022-07-02 07:30 | Observation (INO) | payer OTHER ==
[2022-06-27 09:26] LABS: Specific Gravity 1.014 (1.005-1.030); Urine Bacteria <20 /HPF (<20); Urine Bilirubin NEGATIVE (Negative); Urine Blood Negative (Negative); Urine Clarity Clear (Clear); Urine Color Light-Yellow (Yellow); Urine Glucose NEGATIVE (Negative); Urine Protein NEGATIVE (Negative); Urine RBC <5 /HPF (None Seen); Urine Urobilinogen Normal (Normal); Urine pH 5.5 (5.0-7.0)
[2022-06-28 11:42] LABS: Absolute Lymphocytes (CBC) 1.4 K/uL (0.7-4.9); Hematocrit 35.2 % (36.0-45.0); Lymphocytes % 30.1 % (15.3-44.8); MCV 86.6 fL (80-100); MPV 8.4 fL (7.6-11.3); RBC Red Blood Cell Count 4.06 M/uL (3.86-4.86)
[2022-06-28 12:19] LABS: Albumin 3.8 g/dL (3.4-5.0); Bilirubin Total 0.5 mg/dL (0.2-1.0); Potassium 3.9 mmol/L (3.5-5.1); Protein, Total 7.2 g/dL (6.4-8.2)
[2022-06-28 12:24] LABS: Protime INR 1.13
[2022-07-02] MEDS ORDERED: CELECOXIB 100 MG CAPSULE ONE (08:18)
[2022-07-02] MEDS ORDERED: ACETAMINOPHEN 500 MG TAB ONE (08:19)
[2022-07-02] MEDS ORDERED: Oxycodone HCl/Acetaminophen 1 TAB TAB ONE (08:19)
[2022-07-02] MEDS ORDERED: GABAPENTIN 100 MG CAP ONE (08:19)
[2022-07-02] MEDS ORDERED: NA CHLORIDE 0.9% 1,000 ML ONE (08:20)
[2022-07-02] MEDS ORDERED: TRANEXAMIC ACID 1,000 MG/10 ML VIAL IV ONE (08:24)
[2022-07-02] MEDS ORDERED: CEFAZOLIN SODIUM 2 GM/VIAL ONE (08:40)
[2022-07-02] MEDS ORDERED: FENTANYL CITR 100 MCG/2 ML ONE (09:03)
[2022-07-02] MEDS ORDERED: MIDAZOLAM HCL 2 MG/2 ML INJ ONE (09:04)
[2022-07-02] MEDS ORDERED: HYDROMORPHONE HCL 1 MG/ML INJ ONE (09:51)
[2022-07-02] MEDS ORDERED: propofoL 200 MG/20 ML VIAL IV ONE ×4 (09:54→11:46)
[2022-07-02] MEDS ORDERED: KETAMINE HCL 500 MG/5 ML VIAL ONE (09:58)
[2022-07-02] MEDS ORDERED: KETOROLAC 30 MG/ML INJ ONE (09:58)
[2022-07-02] MEDS ORDERED: LIDOCAINE 2% MPF 5 ML VIAL ONE (09:58)
[2022-07-02] MEDS ORDERED: ONDANSETRON 4 MG/2 ML VIAL ONE (09:58)
[2022-07-02] MEDS ORDERED: dexAMETHasone 10 MG/ML VIAL ONE (11:34)
[2022-07-02] MEDS ORDERED: BUPIVACAINE 0.25% PF 30 ML VIAL ONE (11:34)
[2022-07-02] MEDS ORDERED: LIDOCAINE 1% MPF 5 ML VIAL ONE (11:34)
[2022-07-02] MEDS ORDERED: EPINEPHRINE/PF 1 MG/ML AMP ONE (11:34)
[2022-07-02] MEDS ORDERED: ONDANSETRON 4 MG/2 ML VIAL IV PRN (12:04)
--- NOTE | 2022-07-02 12:13 | P.BOP ---
Preoperative diagnosis: left knee arthritis Postoperative diagnosis: same Primary procedure: left TKA Estimated blood loss: 150 Anesthesia: General Complications: None Transferred to: Recovery Room Condition: Good
--- OUTSIDE RECORDS SUMMARY | 2022-07-02 12:54 | XMS REPORT | Continuity of Care Document ---
:1945 Author Organization [facility] t Address [address] [place] [address] [address]. [address] [place] [address] Care Team Providers Name Role Phone Liam Mccray Attending Clinician Unavailable Payers Payer Name Policy Type Policy Number Effective Date Expiration Date S ource [employer] MEDICARE 53 [id number] 2019 Common Sp sean 00:00:00 [facility] Problems Condition Condition Condition Status Onset Resolution Last Treating Co mments Source Name Details Category Date Date Treatment Clinician Date [id number] Status Problem Commo n 105 post total [facility] right knee - [facility] replacemen [facility] [id number] Arthritis Problem Co mmon 490038 of knee, [facility] left [facility] [id number] Arthritis Problem Co mmon 830331 of knee, [facility] right [facility] [id number] Primary Problem Commo n osteoarthr [facility] - [facility] both knees [facility] [id number] [place], [place] [address] joint, [facility], - [facility] right [facility] [id number] Pain, [place] [address] joint, [facility] knee, left [facility] Allergies, Adverse Reactions, Alerts This patient has no known allergies or adverse reactions. Social History Social Habit Start Date Stop Date Quantity Comments Source Sex Assigned At Com mon [facility] History of Tobacco Use Co mmon [facility] Smoking Status Start Date Stop Date Source Never Smoker Common [facility] Medications Ordered Filled Start Stop Current Ordering Indication Dosage Frequency Signature Comments Components Source Medication Medication Date Date Medication? Clinician (SIG) Name Name HYDROcodone HYDROcodone No 1{table HYDROcodon -Acetaminop -Acetaminop 7-05 t_as_ne e-Acetamin hen 7.5-325 hen 7.5-325 00:00: eded} ophen MG MG 00 7.5-325 MG HYDROcodone HYDROcodone No 1{table HYDROcodon -Acetaminop -Acetaminop 7-05 t_as_ne e-Acetamin hen 7.5-325 hen 7.5-325 00:00: eded} ophen MG MG 00 7.5-325 MG Xarelto 10 Xarelto 10 No 1{table QD Xarelto 10 MG MG 6-30 t} MG 00:00: 00 Xarelto 10 Xarelto 10 No 1{table QD Xarelto 10 MG MG 6-30 t} MG 00:00: 00 Magnesium Magnesium No Magnesium Glimepiride Glimepiride No Glimepirid e Francine Francine No Francine Aspirin Aspirin Aspirin Gemfibrozil Gemfibrozil No Gemfibrozi l Potassimin Potassimin No Potassimin amLODIPine amLODIPine No amLODIPine Benzoate Benzoate Benzoate Omeprazole Omeprazole No Omeprazole Ferrocite Ferrocite No Ferrocite metFORMIN metFORMIN No metFORMIN HCl HCl HCl Atorvastati Atorvastati No Atorvastat n Calcium n Calcium in Calcium Lisinopril Lisinopril No Lisinopril ASA-APAP-Ca ASA-APAP-Ca No ASA-APAP-C ff Buffered ff Buffered aff Buffered Magnesium Magnesium No Magnesium Glimepiride Glimepiride No Glimepirid e Francine Francine No Francine Aspirin Aspirin Aspirin Gemfibrozil Gemfibrozil No Gemfibrozi l Potassimin Potassimin No Potassimin amLODIPine amLODIPine No amLODIPine Benzoate Benzoate Benzoate Omeprazole Omeprazole No Omeprazole Ferrocite Ferrocite No Ferrocite metFORMIN metFORMIN No metFORMIN HCl HCl HCl Atorvastati Atorvastati No Atorvastat n Calcium n Calcium in Calcium Lisinopril Lisinopril No Lisinopril ASA-APAP-Ca ASA-APAP-Ca No ASA-APAP-C ff Buffered ff Buffered aff Buffered Vital Signs Vital Name Observation Time Observation Value Comments Source height 2022-06-10 10:00:00 62 [in_i] [facility] weight 2022-06-10 10:00:00 140 [lb_av] [facility] temperature 2022-06-10 10:00:00 97.0 [degF] [facility] bmi 2022-06-10 10:00:00 25.6 kg/m2 [facility] blood pressure 2022-06-10 10:00:00 136 mm[Hg] [facility] systolic [facility] blood pressure 2022-06-10 10:00:00 80 mm[Hg] Common [facility] diastolic [facility] Procedures This patient has no known procedures. Encounters Start End Encounter Admission Attending Care Care Encounter Source Date/Time Date/Time Type Type Clinicians Facility Department ID 2022-06-10 Outpatient Mccray, STLMLC STLMLC [id number] Common 09:51:03 Liam [facility] 2022-05-03 Outpatient Mccray, STLMLC STLMLC [id number] Common 11:44:02 Liam [facility] 2022-04-30 Outpatient Mccray, STLMLC STLMLC [id number] Common 08:51:03 Liam [facility] 2022-04-10 Outpatient Mccray, STLMLC STLMLC [id number] Common 09:53:03 Liam [facility] 2022-03-27 Outpatient STLMLC STLMLC [id number] Common 08:55:03 [facility] 2022-06-17 2022-06-17 (TEL) STLMLC STLMLC [id number] Co mmon 00:00:00 00:00:00 [facility] 2022-06-10 2022-06-10 Postop STLMLC STLMLC [id number] Co mmon 00:00:00 00:00:00 visit [facility] Results This patient has no known results.
[2022-07-02 14:15] VITALS: BMI 25.0
[2022-07-02] MEDS ORDERED: CEFAZOLIN SODIUM 1 GM/VIAL ONE (17:49)
[2022-07-02] MEDS ORDERED: NA CHLORIDE 0.9% 50 ML ONE (17:50)
[2022-07-02] MEDS: CEFAZOLIN 1 GM in NA CHLORIDE 0.9% 50 ML IVPB SCH (17:50)
[2022-07-02] MEDS ORDERED: GLUCAGON 1 MG/VIAL IM PRN (18:45)
[2022-07-02] MEDS ORDERED: DEXTROSE 10%-WATER 500 ML IV BAG IV PRN (18:55)
--- NOTE | 2022-07-02 19:53 | OP ---
Surgeon: Clinton Valentin MD SE/MODL Voice ID: [id number] Report ID: [id number]
[2022-07-02] MEDS: INSULIN -REGULAR HUMAN 50 UNIT/0.5 ML ML SQ SCH (21:13)
[2022-07-03] MEDS ORDERED: CEFAZOLIN SODIUM 1 GM/VIAL ONE ×2 (03:06→08:18)
[2022-07-03] MEDS ORDERED: NA CHLORIDE 0.9% 50 ML ONE ×2 (03:06→08:24)
[2022-07-03] MEDS: CEFAZOLIN 1 GM in NA CHLORIDE 0.9% 50 ML IVPB SCH ×2 (03:07→08:28)
[2022-07-03 05:49] LABS: Hematocrit 29.3 % (36.0-45.0)
[2022-07-03] MEDS ORDERED: ENOXAPARIN 30 MG/0.3 ML SQ SCH (06:00)
[2022-07-03] MEDS ORDERED: METFORMIN HCL 500 MG TAB PO SCH (08:00)
[2022-07-03] MEDS: INSULIN -REGULAR HUMAN 50 UNIT/0.5 ML ML SQ SCH ×2 (08:32→12:25)
[2022-07-03] MEDS ORDERED: HOME MED 1 EA UNK (Omeprazole [Prilosec] 40 MG Capsule.Dr) PO SCH (09:00)
[2022-07-03] MEDS ORDERED: PANTOPRAZOLE 40MG TABLET PO SCH (09:00)
[2022-07-03] MEDS ORDERED: ATORVASTATIN 20 MG TAB PO SCH (09:00)
[2022-07-03] MEDS ORDERED: HOME MED 1 EA UNK (Metformin Hcl [Metformin Hcl] 1,000 MG Tablet) PO SCH (09:00)
[2022-07-03] MEDS ORDERED: MAGNESIUM OXIDE 400 MG TAB PO SCH (09:00)
[2022-07-03] MEDS ORDERED: HOME MED 1 EA UNK (Magnesium Oxide [Magnesium] 400 MG Capsule) PO SCH (09:00)
[2022-07-03 10:25] VITALS: O2SAT 95
--- NOTE | 2022-07-03 10:35 | CON ---
Date of Consultation: 07/02/2022 Reason For Consultation: Medical management. History Of Present Illness: This is a 76-year-old very pleasant female patient, who had left knee re placement surgery done by Dr. Valentin today and postoperatively, she was admitted to the hospital. Consultation was requested for medical management. The patient denies any chest pain, shortness of breath. No nausea, no vomiting. She denies any pain anywhere at this time when I saw her. Allergies: NO KNOWN ALLERGIES. Review of Systems: Musculoskeletal: Left knee pain. All other systems reviewed and negative. Medications: At home; she takes aspirin 81 mg daily, atorvastatin 20 mg daily, Ferrocite 324 mg skylar y, gemfibrozil 600 mg 2 times a day, lisinopril 5 mg daily in the evening, magnesium oxide 400 mg jojo ly, metformin 1000 mg 2 times a day, omeprazole 40 mg daily, potassium chloride daily. Past Medical History: Significant for type 2 diabetes mellitus, hypertension, mixed hyperlipidemia, anemia, gastroesophageal reflux disease, and diverticulosis, hypokalemia, and hypomagnesemia. Past Surgical History: Hysterectomy, right knee replacement surgery. Family History: Father , had COPD and lung cancer. Mother , had hypertension and hyperlipid emia. Social History: Negative for smoking and alcohol use. Physical Examination: Vital Signs: Last vital signs today; temperature 97.5, pulse 86, respiratory rate 18, blood pressure 131/72, oxygen saturation 97%. Height 5 feet 2 inches, weight 137 pounds. General: Awake, alert, oriented, not in distress. HEENT: Head atraumatic, normocephalic. Conjunctivae nonerythematous. Sclerae white. Mouth, no thr ush or edema noted. Ears/Nose, no mass, lesion, discharge noted. Neck: Supple. No JVD, lymph nodes, bruit, thyromegaly noted. Lungs: Bilateral good equal air entry. Clear to auscultation. No rhonchi. No rales. Heart: Normal heart sounds, no murmur or gallop. Abdomen: Soft, bowel sounds normal. No guarding, rigidity, tenderness, mass, hepatosplenomegaly, dis tention, or bruit noted. Extremities: Left knee has surgical dressing present. Neurovascular status of left foot is normal. Skin: No rash, ulcer, cellulitis. Lymphatics: No lymph node enlargement in neck, supraclavicular, infraclavicular region. Neuro: No focal neurological deficit. Chest: Unremarkable. External Genitalia: Deferred. Rectal: Deferred. Laboratory Data: On 06/28/2022; white count was 4.8, hemoglobin 11.8, platelets 255. Sodium 138, po tassium 3.9, chloride 104, bicarb 25, BUN 14, creatinine 0.66, glucose 181. Liver function tests unr emarkable. Urinalysis; 75 leukocyte esterase, rest of the urinalysis was normal. COVID-19 test was negative. Impression: 1.Type 2 diabetes mellitus. 2.Hypertension. 3.Mixed hyperlipidemia. 4.Anemia, unspecified. 5.Hypokalemia. 6.Hypomagnesemia. 7.Gastroesophageal reflux disease. 8.Diverticulosis. Plan/recommendations: The patient had left knee surgery today, she is doing very well postoperativel y, does not have any problems at this point and does not report any pain at this time. She actually already started to ambulate today. She has DVT prophylaxis order in place with Lovenox as ordered by Dr. Valentin. For diabetes, we will manage it with sliding scale insulin and starting tomorrow we will consider to start her back on her metformin. We will continue her antihypertensive medication a nd cholesterol medication per order. We will monitor hemoglobin and continue her potassium and magnesium replacement per order. I will see h er tomorrow morning for followup. NATHEN/MODL Voice ID: [id number] Report ID: [id number]
[2022-07-03 12:32] VITALS: BP 149/57; TEMP 97.4
[2022-07-03] MEDS ORDERED: lisinopriL 5 MG TAB PO SCH (17:30)
--- NOTE | 2022-07-03 22:02 | OP ---
Date of Procedure: 07/02/2022 Surgeon: Clinton Valentin MD Preoperative Diagnosis: Left knee arthritis. Postoperative Diagnosis: Left knee arthritis. Procedure: Left total knee arthroplasty using the [employer] Vanguard Knee System. Estimated Blood Loss: 150 cc. Complications: There were no complications. Specimen: No pathology specimen was sent other than those sent by Nursing. Indications: Ms. Hammer is a 76-year-old female who has had trouble with her left knee for some juan daniel e involving her ADLs. She has had conservative management, which has not been helpful. She has had a previous right total knee arthroplasty, which was done by me and did well and requests left total k nee arthroplasty. Risks, benefits, and alternatives were again discussed with her prior to surgery. She states she understands things as presented and wishes to proceed. Description Of Procedure: The patient was given a block in the holding area. After this, she was br ought to the operating room, where she undergoes general anesthesia. After this, a well-padded tourn iquet was placed on superior left leg. Left lower extremity was then prepped and draped in the usual sterile fashion for procedure. Following this, a standard anterior incision was taken down carefull y through skin and soft tissues with meticulous hemostasis being maintained using Bovie electrocauter y. This leads down to the appropriate level, which was then expanded medialward and lateralward and the superomedial portion of the patella was then marked out. A standard medial parapatellar arthroto my was then performed with liberation of approximately 30 cc of rather normal-appearing synovial flui d. This was followed by excision of the medial and lateral menisci as well as the anterior cruciate ligament. The intramedullary alignment guide was then placed. Distal cut was made in standard fashi on. It was then sized. After sizing, the femoral cutting block was used and the remainder of the fe moral cuts were performed using a block. Following this attention was then turned to the tibia, whic h was cut in standard fashion. After this, the trial was then placed and comes to full extension and appears to be balanced both in flexion and extension. Attention was turned to the patella. It was calipered and then cut and had trial patellas in place. It was taken through range of motion, which demonstrates patella appears to glide well. After this, the trial instruments were removed and the b ox was cut. The bone plug was placed as well as the tibia being punched. All of the implants with t he exception of the tibial polyethylene were then cemented into place with the trial polyethylene giovanni ng used until the cement hardened. It was then brought through range of motion and was found to be s table and well balanced. The decision was made to proceed with the final polyethylene insert. The t rial was removed and the final polyethylene insert was then placed and locking bar was placed. Any u nsupported cement was removed. It was then brought again through range of motion and was found to be stable in the above areas as well. After this, the fascia was closed in a watertight fashion using heavy Ethibond sutures, this was followed by closure of the skin using Vicryl followed by jadyn. Lilli strickland was then placed in a well-padded sterile dressing, awakened and taken to recovery room in good condition. /GREGORY Voice ID: [id number] Report ID: [id number]
--- NOTE | 2022-07-03 23:17 | PN ---
Date of Progress Note: 07/03/2022 Subjective: Patient was seen this morning for followup. No new complaints or problems reported by aliyah strickland. She denies any pain in her knee. No nausea. No vomiting. No shortness of breath. No ches t pain. Objective: Vital Signs: Reviewed. HEENT: Unremarkable. Lungs: Clear to auscultation. Heart: Sounds normal. Abdomen: Soft. Bowel sounds normal. No guarding, rigidity, tenderness, or distention. Extremities: No leg edema. Laboratory Data: Hemoglobin this morning changed. Her fingerstick blood sugar last night was 429. Impression: 1.Type 2 diabetes mellitus. 2.Hypertension. 3.Anemia due to acute blood loss. 4.Hyperlipidemia. Plan: We will restart her metformin as of this morning. Continue the home medications. The patient will be going home today. Medically, she is stable for discharge and I have informed her that upon discharge from the hospital, she should continue all her prior home medication as she was taking befo re this hospital admission. I have also informed her that while she is taking anticoagulation, which Dr. Valentin will be prescribing her for DVT prophylaxis, she will not take her 81 mg aspirin dose and she told me that after her anticoagulation therapy is completed, Dr. Valentin will be giving her aspirin 325 mg daily for about 2 to 3 weeks. So, I have informed her that during that time as well, she will not take her 81 mg aspirin dose, but once she is done with all this anticoagulation and hig her dose of aspirin, then she will start her 81 mg aspirin daily as her maintenance dose. She will keep her appointment to see me as per her schedule. NATHEN/MODL Voice ID: [id number] Report ID: [id number]
== END 2022-07-03 14:55 | disposition home or self-care (01) ==
LOC: OR 07:30 → 2ND 12:50
PROVIDERS: ADMIT Orthopaedic Surgery; ATTEND Orthopaedic Surgery
PROC: 0SRD069 Replacement of Left Knee Joint with Oxidized Zirconium on Polyethylene Synthetic Substitute, Cemented, Open Approach (ICD-10-PCS; principal; 2022-07-02 09:45)
DX: M17.12 Unilateral primary osteoarthritis, left knee (principal); I10 Essential (primary) hypertension; E78.00 Pure hypercholesterolemia, unspecified; Z96.651 Presence of right artificial knee joint; E11.9 Type 2 diabetes mellitus without complications; D64.9 Anemia, unspecified; E87.6 Hypokalemia; E83.42 Hypomagnesemia; K21.9 Gastro-esophageal reflux disease without esophagitis
CPT/HCPCS: 27447; 85025; 81001; 36415 ×2; 86900; 86850; 85610; 86901; 82947 ×5; 88304; 88311; 85730; 85018; 85014; 80053; 97110 ×2; 97116 ×2; 97139; 97161; 97530 ×2; 94010; C1776; J2704 ×3; J0171; J2001 ×2; J1815 ×3; J1650; J2250; J3010; J1100; J1170; J7030; J2405; J0690 ×3; G0379; G0378 ×2

== ENCOUNTER 2023-03-07 19:37 | Emergency (ER) | payer OTHER ==
--- OUTSIDE RECORDS SUMMARY | 2023-03-07 19:40 | XMS REPORT | Continuity of Care Document ---
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 - [facility] [id number] Arthritis Problem Co mmon [id number] of knee, [facility] left [facility] [id number] Arthritis Problem Co mmon [id number] of knee, [facility] right [facility] [id number] Primary Problem Commo n osteoarthr [facility] both knees [facility] [phone] [place], [place] [id number] joint, [facility], - [facility] right [facility] [phone] Pain, [place] [address] joint, [facility] knee, left [facility] Allergies, Adverse Reactions, Alerts This patient has no known allergies or adverse reactions. Social History Social Habit Start Date Stop Date Quantity Comments Source Sex Assigned At Com mon [facility] History of Tobacco Use Co mmon [facility] Smoking Status Start Date Stop Date Source Never Smoker Common [facility] Medications Ordered Filled Start Stop Current Ordering Indication Dosage Frequency Signature Comments Components Source Medication Medication Date Date Medication? Clinician (SIG) Name Name HYDROcodone HYDROcodone 2021-09 No 1{table HYDROcodon -Acetaminop -Acetaminop 0-26 t_as_ne e-Acetamin hen 7.5-325 hen 7.5-325 00:00: eded} ophen MG MG 00 7.5-325 MG HYDROcodone HYDROcodone 2021-09 No 1{table HYDROcodon -Acetaminop -Acetaminop 0-26 t_as_ne e-Acetamin hen 7.5-325 hen 7.5-325 00:00: eded} ophen MG MG 00 7.5-325 MG HYDROcodone HYDROcodone 2021-09 No 1{table HYDROcodon -Acetaminop -Acetaminop 0-26 t_as_ne e-Acetamin hen 7.5-325 hen 7.5-325 00:00: eded} ophen MG MG 00 7.5-325 MG HYDROcodone HYDROcodone 2021-09 No 1{table HYDROcodon -Acetaminop -Acetaminop 0-26 t_as_ne e-Acetamin hen 7.5-325 hen 7.5-325 00:00: eded} ophen MG MG 00 7.5-325 MG HYDROcodone HYDROcodone 2021-09 No 1{table HYDROcodon -Acetaminop -Acetaminop 0-26 t_as_ne e-Acetamin hen 7.5-325 hen 7.5-325 00:00: eded} ophen MG MG 00 7.5-325 MG Xarelto 10 Xarelto 10 2021-09 No 1{table QD Xarelto 10 MG MG 0-24 t} MG 00:00: 00 Xarelto 10 Xarelto 10 2021-09 No 1{table QD Xarelto 10 MG MG 0-24 t} MG 00:00: 00 Xarelto 10 Xarelto 10 2021-09 No 1{table QD Xarelto 10 MG MG 0-24 t} MG 00:00: 00 Xarelto 10 Xarelto 10 2021-09 No 1{table QD Xarelto 10 MG MG 0-24 t} MG 00:00: 00 Xarelto 10 Xarelto 10 2021-09 No 1{table QD Xarelto 10 MG MG 0-24 t} MG 00:00: 00 HYDROcodone HYDROcodone 2021-0 No 1{table HYDROcodon -Acetaminop -Acetaminop 7-05 t_as_ne e-Acetamin hen 7.5-325 hen 7.5-325 00:00: eded} ophen MG MG 00 7.5-325 MG HYDROcodone HYDROcodone 2021-0 No 1{table HYDROcodon -Acetaminop -Acetaminop 7-05 t_as_ne e-Acetamin hen 7.5-325 hen 7.5-325 00:00: eded} ophen MG MG 00 7.5-325 MG HYDROcodone HYDROcodone 2021-0 No 1{table HYDROcodon -Acetaminop -Acetaminop 7-05 t_as_ne e-Acetamin hen 7.5-325 hen 7.5-325 00:00: eded} ophen MG MG 00 7.5-325 MG HYDROcodone HYDROcodone 2021-0 No 1{table HYDROcodon -Acetaminop -Acetaminop 7-05 t_as_ne e-Acetamin hen 7.5-325 hen 7.5-325 00:00: eded} ophen MG MG 00 7.5-325 MG HYDROcodone HYDROcodone 2021-0 No 1{table HYDROcodon -Acetaminop -Acetaminop 7-05 t_as_ne e-Acetamin hen 7.5-325 hen 7.5-325 00:00: eded} ophen MG MG 00 7.5-325 MG HYDROcodone HYDROcodone 2021-0 No 1{table HYDROcodon -Acetaminop -Acetaminop 7-05 t_as_ne e-Acetamin hen 7.5-325 hen 7.5-325 00:00: eded} ophen MG MG 00 7.5-325 MG HYDROcodone HYDROcodone 2021-0 No 1{table HYDROcodon -Acetaminop -Acetaminop 7-05 t_as_ne e-Acetamin hen 7.5-325 hen 7.5-325 00:00: eded} ophen MG MG 00 7.5-325 MG Xarelto 10 Xarelto 10 2021-0 No 1{table QD Xarelto 10 MG MG 6-30 t} MG 00:00: 00 Xarelto 10 Xarelto 10 2021-0 No 1{table QD Xarelto 10 MG MG 6-30 t} MG 00:00: 00 Xarelto 10 Xarelto 10 2021-0 No 1{table QD Xarelto 10 MG MG 6-30 t} MG 00:00: 00 Xarelto 10 Xarelto 10 2021-0 No 1{table QD Xarelto 10 MG MG 6-30 t} MG 00:00: 00 Xarelto 10 Xarelto 10 2021-0 No 1{table QD Xarelto 10 MG MG 6-30 t} MG 00:00: 00 Xarelto 10 Xarelto 10 2021-0 No 1{table QD Xarelto 10 MG MG 6-30 t} MG 00:00: 00 Xarelto 10 Xarelto 10 2021-0 No 1{table QD Xarelto 10 MG MG 6-30 t} MG 00:00: 00 Omeprazole Omeprazole No Omeprazole Ferrocite Ferrocite No Ferrocite metFORMIN metFORMIN No metFORMIN HCl HCl HCl Atorvastati Atorvastati No Atorvastat n Calcium n Calcium in Calcium Lisinopril Lisinopril No Lisinopril ASA-APAP-Ca ASA-APAP-Ca No ASA-APAP-C ff Buffered ff Buffered aff Buffered Magnesium Magnesium No Magnesium Glimepiride Glimepiride No Glimepirid e Francine Frnacine No Francine Aspirin Aspirin Aspirin Gemfibrozil Gemfibrozil No Gemfibrozi l Potassimin Potassimin No Potassimin amLODIPine amLODIPine No amLODIPine Benzoate Benzoate Benzoate Omeprazole Omeprazole No Omeprazole Ferrocite Ferrocite No Ferrocite metFORMIN metFORMIN No metFORMIN HCl HCl HCl Atorvastati Atorvastati No Atorvastat n Calcium n Calcium in Calcium Lisinopril Lisinopril No Lisinopril ASA-APAP-Ca ASA-APAP-Ca No ASA-APAP-C ff Buffered ff Buffered aff Buffered ASA-APAP-Ca ASA-APAP-Ca No ASA-APAP-C ff Buffered ff Buffered aff Buffered Ferrocite Ferrocite No Ferrocite Lisinopril Lisinopril No Lisinopril Glimepiride Glimepiride No Glimepirid e Francine Francine No Francine Aspirin Aspirin Aspirin Gemfibrozil Gemfibrozil No Gemfibrozi l Magnesium Magnesium No Magnesium metFORMIN metFORMIN No metFORMIN HCl HCl HCl Omeprazole Omeprazole No Omeprazole Potassimin Potassimin No Potassimin amLODIPine amLODIPine No amLODIPine Benzoate Benzoate Benzoate Atorvastati Atorvastati No Atorvastat n Calcium n Calcium in Calcium Gemfibrozil Gemfibrozil No Gemfibrozi l amLODIPine amLODIPine No amLODIPine Benzoate Benzoate Benzoate Omeprazole Omeprazole No Omeprazole Francine Francine No Francine Aspirin Aspirin Aspirin ASA-APAP-Ca ASA-APAP-Ca No ASA-APAP-C ff Buffered ff Buffered aff Buffered Potassimin Potassimin No Potassimin Glimepiride Glimepiride No Glimepirid e metFORMIN metFORMIN No metFORMIN HCl HCl HCl Magnesium Magnesium No Magnesium Lisinopril Lisinopril No Lisinopril Ferrocite Ferrocite No Ferrocite Atorvastati Atorvastati No Atorvastat n Calcium n Calcium in Calcium Omeprazole Omeprazole No Omeprazole metFORMIN metFORMIN No metFORMIN HCl HCl HCl Gemfibrozil Gemfibrozil No Gemfibrozi l amLODIPine amLODIPine No amLODIPine Benzoate Benzoate Benzoate ASA-APAP-Ca ASA-APAP-Ca No ASA-APAP-C ff Buffered ff Buffered aff Buffered Francine Francine No Francine Aspirin Aspirin Aspirin Potassimin Potassimin No Potassimin Glimepiride Glimepiride No Glimepirid e Lisinopril Lisinopril No Lisinopril Atorvastati Atorvastati No Atorvastat n Calcium n Calcium in Calcium Ferrocite Ferrocite No Ferrocite Magnesium Magnesium No Magnesium Lisinopril Lisinopril No Lisinopril metFORMIN metFORMIN No metFORMIN HCl HCl HCl Gemfibrozil Gemfibrozil No Gemfibrozi l Glimepiride Glimepiride No Glimepirid e Magnesium Magnesium No Magnesium ASA-APAP-Ca ASA-APAP-Ca No ASA-APAP-C ff Buffered ff Buffered aff Buffered ASA-APAP-Ca ASA-APAP-Ca No ASA-APAP-C ff Buffered ff Buffered aff Buffered Francine Francine No Francine Aspirin Aspirin Aspirin Atorvastati Atorvastati No Atorvastat n Calcium n Calcium in Calcium Omeprazole Omeprazole No Omeprazole Ferrocite Ferrocite No Ferrocite Potassimin Potassimin No Potassimin amLODIPine amLODIPine No amLODIPine Benzoate Benzoate Benzoate Atorvastati Atorvastati No Atorvastat n Calcium n Calcium in Calcium Gemfibrozil Gemfibrozil No Gemfibrozi l metFORMIN metFORMIN No metFORMIN HCl HCl HCl ASA-APAP-Ca ASA-APAP-Ca No ASA-APAP-C ff Buffered ff Buffered aff Buffered Ferrocite Ferrocite No Ferrocite Potassimin Potassimin No Potassimin Glimepiride Glimepiride No Glimepirid e Lisinopril Lisinopril No Lisinopril Magnesium Magnesium No Magnesium Francine Francine No Francine Aspirin Aspirin Aspirin Omeprazole Omeprazole No Omeprazole ASA-APAP-Ca ASA-APAP-Ca No ASA-APAP-C ff Buffered ff Buffered aff Buffered Magnesium Magnesium No Magnesium amLODIPine amLODIPine No amLODIPine Benzoate Benzoate Benzoate Glimepiride Glimepiride No Glimepirid e Francine Francine No Francine Aspirin Aspirin Aspirin Gemfibrozil Gemfibrozil No Gemfibrozi l Potassimin Potassimin No Potassimin amLODIPine amLODIPine No amLODIPine Benzoate Benzoate Benzoate Vital Signs Vital Name Observation Time Observation Value Comments Source height 2022-08-19 10:00:00 62 [in_i] [facility] weight 2022-08-19 10:00:00 133 [lb_av] [facility] temperature 2022-08-19 10:00:00 97.6 [degF] [facility] bmi 2022-08-19 10:00:00 24.32 kg/m2 [facility] blood pressure 2022-08-19 10:00:00 124 mm[Hg] [facility] - systolic [facility] blood pressure 2022-08-19 10:00:00 72 mm[Hg] [facility] - diastolic [facility] height 2022-08-05 11:00:00 62 [in_i] [facility] weight 2022-08-05 11:00:00 133 [lb_av] [facility] temperature 2022-08-05 11:00:00 97.5 [degF] [facility] - [facility] bmi 2022-08-05 11:00:00 24.32 kg/m2 [facility] - [facility] blood pressure 2022-08-05 11:00:00 121 mm[Hg] [facility] - systolic [facility] blood pressure 2022-08-05 11:00:00 73 mm[Hg] [facility] - diastolic [facility] height 2022-07-18 11:00:00 62 [in_i] [facility] - [facility] weight 2022-07-18 11:00:00 135 [lb_av] [facility] temperature 2022-07-18 11:00:00 98.0 [degF] [facility] - [facility] bmi 2022-07-18 11:00:00 24.69 kg/m2 [facility] - [facility] blood pressure 2022-07-18 11:00:00 125 mm[Hg] [facility] - systolic [facility] blood pressure 2022-07-18 11:00:00 75 mm[Hg] [facility] - diastolic [facility] height 2022-07-08 14:00:00 62 [in_i] [facility] weight 2022-07-08 14:00:00 140 [lb_av] [facility] - [facility] temperature 2022-07-08 14:00:00 97.3 [degF] [facility] bmi 2022-07-08 14:00:00 25.6 kg/m2 [facility] - [facility] blood pressure 2022-07-08 14:00:00 110 mm[Hg] [facility] - systolic [facility] blood pressure 2022-07-08 14:00:00 60 mm[Hg] [facility] - diastolic [facility] height 2022-06-10 10:00:00 62 [in_i] [facility] - [facility] weight 2022-06-10 10:00:00 140 [lb_av] [facility] temperature 2022-06-10 10:00:00 97.0 [degF] [facility] bmi 2022-06-10 10:00:00 25.6 kg/m2 [facility] blood pressure 2022-06-10 10:00:00 136 mm[Hg] Common [facility] - systolic [facility] blood pressure 2022-06-10 10:00:00 80 mm[Hg] Common [facility] - diastolic [facility] Procedures This patient has no known procedures. Encounters Start End Encounter Admission Attending Care Care Encounter Source Date/Time Date/Time Type Type Clinicians Facility Department ID 2022-07-17 Outpatient Mccray, STLMLC STLMLC [id number] Common 09:06:03 Liam [facility] 2022-06-10 Outpatient Mccray, STLMLC STLMLC [id number] Common 09:51:03 Liam [facility] 2022-05-03 Outpatient Mccray, STLMLC STLMLC [id number] Common 11:44:02 Laim [facility] 2022-04-30 Outpatient Mccray, STLMLC STLMLC [id number] Common 08:51:03 Liam [facility] 2022-04-10 Outpatient Mccray, STLMLC STLMLC [id number] Common 09:53:03 Liam [facility] 2022-03-27 Outpatient STLMLC STLMLC [id number] Common 08:55:03 [facility] 2022-08-19 2022-08-19 NON-BILLAB STLMLC STLMLC [id number] Common 00:00:00 00:00:00 [facility] 2022-08-05 2022-08-05 NON-BILLAB STLMLC STLMLC [id number] Common 00:00:00 00:00:00 [facility] 2022-07-18 2022-07-18 (PO) Post STLMLC STLMLC [id number] Common 00:00:00 00:00:00 Op [facility] 2022-07-08 2022-07-08 NON-BILLAB STLMLC STLMLC [id number] Common 00:00:00 00:00:00 LE VISIT [facility] 2022-07-01 2022-07-01 (TEL) STLMLC STLMLC [id number] Co mmon 00:00:00 00:00:00 [facility] 2022-06-17 2022-06-17 (TEL) STLMLC STLMLC [id number] Co mmon 00:00:00 00:00:00 [facility] 2022-06-10 2022-06-10 Postop STLMLC STLMLC [id number] Co mmon 00:00:00 00:00:00 visit [facility] 2021-06-11 2021-06-11 Outpatient PRIV PRIV [id number] [facility] 00:00:00 00:00:00 [id number] [facility] 2021-06-11 2021-06-11 Outpatient PRIV PRIV [id number] [facility] 00:00:00 00:00:00 [id number] Medica l Results This patient has no known results.
[2023-03-07] MEDS ORDERED: methocarbamoL 750 MG TAB ONE (20:30)
[2023-03-07] MEDS ORDERED: IBUPROFEN 400 MG TAB ONE (20:31)
[2023-03-07] MEDS ORDERED: ONDANSETRON 4 MG (ODT) TAB ONE (20:31)
[2023-03-07] MEDS ORDERED: HYDROCODONE/APAP 10/325 TAB ONE (20:31)
[2023-03-07 20:45] LABS: Absolute Lymphocytes (CBC) 1.7 K/uL (0.7-4.9); Hematocrit 37.7 % (36.0-45.0); Lymphocytes % 26.1 % (15.3-44.8); MCV 88.1 fL (80-100); MPV 8.5 fL (7.6-11.3); RBC Red Blood Cell Count 4.28 M/uL (3.86-4.86)
[2023-03-07 20:52] LABS: Protime INR 0.91
[2023-03-07 21:00] LABS: Albumin 3.8 g/dL (3.4-5.0); Bilirubin Direct 0.2 mg/dL (0-0.2); Bilirubin Indirect, Calculated 0.3 mg/dL (0.2-0.8); Bilirubin Total 0.5 mg/dL (0.2-1.0); Magnesium 1.7 mg/dL (1.6-2.4); Potassium 3.5 mEq/L (3.5-5.1); Protein, Total 7.2 g/dL (6.4-8.2); Troponin High Sensitivity 21.8 pg/mL (<58.9)
--- NOTE | 2023-03-07 21:08 | RAD REPORT ---
EXAM DESCRIPTION: CT - Head C Spine Mpr Wo Con - 03/07/2023 8:54 pm CLINICAL HISTORY: Head and neck pain COMPARISON: None. TECHNIQUE: Computed axial tomography of the head and cervical spine was obtained. Sagittal and coronal reconstruction was performed. All CT scans are performed using dose optimization technique as appropriate and may include automated exposure control or mA/KV adjustment according to patient size. FINDINGS: An intracranial bleed is not seen. The ventricles are normal in caliber. No significant hypodensity within the brain. An extra-axial fluid collection is not noted. Fluid within the visualized sinuses and mastoids is not seen A cervical fracture is not visualized. No dislocation is noted. Facet hypertrophy C5-6 results in mild to moderate narrowing the right neural foramina Disc bulge C6-7 thecal sac measures approximately 8 millimeters IMPRESSION: No acute intracranial abnormality is seen. A cervical fracture is not visualized. Spondylosis C5-6 results in mild to moderate right foraminal stenosis Spondylosis C6-7 results in mild central spinal stenosis If the patient continues to have symptoms to suggest significant intracranial/spinal canal/spinal co rd pathology then MRI would be recommended
--- NOTE | 2023-03-07 21:28 | RAD REPORT ---
EXAM DESCRIPTION: Janki Single View03/07/2023 9:15 pm CLINICAL HISTORY: Chest pain COMPARISON: 2021 FINDINGS: The lungs appear clear of acute infiltrate. The heart is normal size IMPRESSION: No acute abnormalities displayed
--- NOTE | 2023-03-07 22:19 | ER ---
Nurse's Notes [facility] Name: Angle Hammer Age: 77 yrs Sex: Female : 1945 Arrival Date: 03/07/2023 Time: 19:37 Bed 6 Private MD: Diagnosis: Acute cervical pain, cervical spinal spondylosis and degenerative changes;Acute neck pain with dizziness Presentation: 03/07 19:42 Chief complaint: Patient states: NAPE PAIN X 1 WEEK. DIZZINESS X 1 MONTH. SYMPTOMS HAS rv BEEN GETTING WORSE IN THE PAST FEW DAYS. Coronavirus screen: Vaccine status: Patient reports receiving the 2nd dose of the covid vaccine. Ebola Screen: Patient negative for fever greater than or equal to 101.5 degrees Fahrenheit, and additional compatible Ebola Virus Disease symptoms Patient denies exposure to infectious person. Patient denies travel to an Ebola-affected area in the 21 days before illness onset. Initial Sepsis Screen: Does the patient meet any 2 criteria? No. Patient's initial sepsis screen is negative. Does the patient have a suspected source of infection? No. Patient's initial sepsis screen is negative. Risk Assessment: Do you want to hurt yourself or someone else? Patient reports no desire to harm self or others. 19:42 Method Of Arrival: Ambulatory rv 19:42 Acuity: ARELI 3 rv 19:42 Onset of symptoms was March 07, 2023. rv Triage Assessment: 19:45 General: Appears comfortable, Behavior is calm, cooperative. Pain: Complains of pain in rv base of the skull. Neuro: Level of Consciousness is awake, alert, obeys commands, Oriented to person, place, time, situation, Reports dizziness. Cardiovascular: Capillary refill < 3 seconds. Respiratory: Airway is patent Respiratory effort is even, unlabored. GI: No signs and/or symptoms were reported involving the gastrointestinal system. : No signs and/or symptoms were reported regarding the genitourinary system. Derm: Skin is intact. Historical: - PMHx: 19:44 Diabetes - NIDDM; High Cholesterol; Hypertension; rv - PSHx: 19:44 None; rv - Immunization history:: Adult Immunizations up to date. - Social history:: Smoking status: Patient denies any tobacco usage or history of. - Family history:: not pertinent. Screenin:46 [facility] Fall Risk Assessment (Adult) History of falling in the last 3 months, rv including since admission No falls in past 3 months (0 pts) Confusion or Disorientation No (0 pts) Intoxicated or Sedated No (0 pts) Impaired Gait No (0 pts) Mobility Assist Device Used No (0 pt) Altered Elimination No (0 pt) Score/Fall Risk Level 0 - 2 = Low Risk Oriented to surroundings, Maintained a safe environment, Educated pt \T\ family on fall prevention, incl call for assistance when getting out of bed, Assessed \T\ reinforced patient's understanding of fall precautions, Provided non-skid footwear, Hourly rounding (assess needs \T\ fall precautionary measures) done, Used ambulatory aids as needed (educated on \T\ assisted with), Used gait belt as appropriate. Abuse screen: Denies threats or abuse. Denies injuries from another. Nutritional screening: No deficits noted. Tuberculosis screening: No symptoms or risk factors identified. Assessment: 20:09 General: Appears in no apparent distress. comfortable, Behavior is calm, cooperative, jb4 appropriate for age. Pain: Complains of pain in base of the skull Pain currently is 6 out of 10 on a pain scale. Neuro: Level of Consciousness is awake, alert, obeys commands, Oriented to person, place, time, situation. Cardiovascular: Patient's skin is warm and dry. Respiratory: Airway is patent Respiratory effort is even, unlabored, Respiratory pattern is regular, symmetrical. GI: No signs and/or symptoms were reported involving the gastrointestinal system. : No signs and/or symptoms were reported regarding the genitourinary system. EENT: No signs and/or symptoms were reported regarding the EENT system. Derm: Skin is intact, Skin is pink, warm \T\ dry. Musculoskeletal: Circulation, motion, and sensation intact. Range of motion: intact in all extremities. 21:00 Reassessment: Patient appears in no apparent distress at this time. Patient and/or jb4 family updated on plan of care and expected duration. Pain level reassessed. Patient is alert, oriented x 3, equal unlabored respirations, skin warm/dry/pink. 21:59 Reassessment: Patient appears in no apparent distress at this time. Patient and/or jb4 family updated on plan of care and expected duration. Pain level reassessed. Patient is alert, oriented x 3, equal unlabored respirations, skin warm/dry/pink. 22:31 Reassessment: Patient appears in no apparent distress at this time. Patient states kl feeling better. Patient states symptoms have improved. Vital Signs: 19:42 BP 173 / 68; Pulse 96; Resp 16; Temp 98; Pulse Ox 97% ; Weight 63.05 kg; Height 5 ft. 2 rv in. ; 20:00 BP 169 / 84; Pulse 94; Resp 16; Pulse Ox 95% on R/A; jb4 20:30 BP 160 / 68; Pulse 84; Resp 16; Pulse Ox 96% on R/A; jb4 22:00 BP 129 / 66; Pulse 73; Resp 16; Pulse Ox 93% on R/A; jb4 22:28 BP 142 / 62; Pulse 74; Resp 18; Pulse Ox 94% ; kl 19:42 Body Mass Index 25.42 (63.05 kg, 157.48 cm) rv Raymundo Coma Score: 20:29 Eye Response: spontaneous(4). Motor Response: obeys commands(6). Verbal Response: sp4 oriented(5). Total: 15. NIH Stroke Scale Scores: 20:29 NIHSS Score: 0 sp4 ED Course: 19:39 Patient arrived in ED. jj6 19:44 Triage completed. rv 19:46 Arm band placed on right wrist. rv 19:59 Francheska Culp, MARGARITA is Primary Nurse. lg3 20:07 Mark Pruitt MD is Attending Physician. sp4 20:09 Patient has correct armband on for positive identification. Bed in low position. Call jb4 light in reach. Side rails up X 1. Client placed on continuous cardiac and pulse oximetry monitoring. NIBP monitoring applied. 20:47 Inserted saline lock: 20 gauge in right antecubital area, using aseptic technique. rv1 Blood collected. 20:50 Basic Metabolic Panel Sent. rv1 20:50 CBC with Diff Sent. rv1 20:50 LFT's Sent. rv1 20:50 Magnesium Sent. rv1 20:50 NT PRO-BNP Sent. rv1 20:50 PT-INR Sent. rv1 20:56 CT Head C Spine In Process Unspecified. EDMS 21:16 XRAY Chest (1 view) In Process Unspecified. EDMS 22:17 Liam Mccray MD is Referral Physician. sp4 22:30 No provider procedures requiring assistance completed. IV discontinued, intact, kl bleeding controlled, No redness/swelling at site. Pressure dressing applied. Administered Medications: 20:25 Drug: Ondansetron PO 4 mg Route: PO; lg3 20:26 Drug: Jewell PO 10 mg-325 mg 1 tabs Route: PO; lg3 20:26 Drug: Methocarbamol PO 750 mg Route: PO; lg3 20:26 Drug: Ibuprofen PO 400 mg Route: PO; lg3 Medication: 20:09 VIS not applicable for this client. jb4 Outcome: 22:18 Discharge ordered by . sp4 22:30 Discharged to home ambulatory, with family. kl 22:30 Condition: improved 22:30 Discharge instructions given to patient, family, Instructed on discharge instructions, follow up and referral plans. medication usage, Demonstrated understanding of instructions, follow-up care, medications, Prescriptions given X 3. 22:32 Patient left the ED. NIH Stroke Scale - NIH Stroke Score Date: 03/07/2023 Time: 20:29 Total Score = 0 10. Dysarthria (speech clarity - read or repeat words) - 0(Normal) 11. Extinction and Inattention (visual/tactile/auditory/spatial/personal) - 0(No abnormality) 1a. Level of Consciousness (LOC) - 0(Alert) 1b. Level of Consciousness (LOC) (Month \T\ Age) - 0(Both) 1c. LOC Commands (Open \T\ Closes Eyes/Medical Education Manager) - 0(Both) 2. Best Gaze (Lateral Gaze Paresis) - 0(Normal) 3. Visual Field Loss - 0(No visual loss) 4. Facial Palsy - 0(Normal) 5a. Left Arm: Motor (10-second hold) - 0(No drift) 5b. Right Arm: Motor (10-second hold) - 0(No drift) 6a. Left Leg: Motor (5-second hold - always test supine) - 0(No drift) 6b. Right Leg: Motor (5-second hold - always test supine) - 0(No drift) 7. Limb Ataxia (finger/nose \T\ heel/rojas - test with eyes open) - 0(Absent) 8. Sensory Loss (pinprick arms/legs/face) - 0(Normal) 9. Best Language: Aphasia (description/naming/reading) - 0(No aphasia) Initials: sp4 Signatures: Dispatcher [employer] Trina Kimble, RN RN Oswaldo Powell RN RN jb4 Maury Nicole RN RN Francheska Hinkle RN RN lg3 Nicolette Odell6 Chary Geller rv1 Mark Pruitt MD MD sp4
--- NOTE | 2023-03-07 22:19 | EDPHYS ---
Physician Documentation [facility] Name: Angle Hammer Age: 77 yrs Sex: Female : 1945 Arrival Date: 03/07/2023 Time: 19:37 Bed 6 Private MD: ED Physician Mark Pruitt HPI: 03/07 20:07 This 77 yrs old Female presents to ER via Ambulatory with complaints of Neck sp4 and Upper Back Pain, Dizziness. 20:29 Very pleasant 77-year-old female with history of type 2 diabetes, high cholesterol, sp4 hypertension, presents with complaint of 1-1/2 weeks of dizziness, pain in the upper neck, headache and overall feeling unwell,, patient denied lateralizing weakness, denied balance problems, denied blurry vision and denied fever. Historical: - PMHx: 19:44 Diabetes - NIDDM; High Cholesterol; Hypertension; rv - PSHx: 19:44 None; rv - Immunization history:: Adult Immunizations up to date. - Social history:: Smoking status: Patient denies any tobacco usage or history of. - Family history:: not pertinent. ROS: 20:29 Constitutional: Negative for fever, chills, and weight loss, Eyes: Negative for injury, sp4 pain, redness, and discharge, ENT: Negative for injury, pain, and discharge, Neck: Negative for injury, and swelling, positive for posterior neck pain, upper neck pain Cardiovascular: Negative for chest pain, palpitations, and edema, Respiratory: Negative for shortness of breath, cough, wheezing, and pleuritic chest pain, Abdomen/GI: Negative for abdominal pain, nausea, vomiting, diarrhea, and constipation, Back: Negative for injury and pain, : Negative for injury, bleeding, discharge, and swelling, MS/Extremity: Negative for injury and deformity, Skin: Negative for injury, rash, and discoloration, Neuro: Negative for weakness, numbness, tingling, and seizure, positive for dizziness and headache and posterior neck Psych: Negative for depression, anxiety, Allergy/Immunology: Negative for hives, rash, and allergies Endocrine: Negative for neck swelling, polydipsia, polyuria, polyphagia, and weight changes Exam: 20:29 Constitutional: This is a well developed, well nourished patient who is awake, alert, sp4 and in no acute distress. Head/Face: Normocephalic, atraumatic. Eyes: Pupils equal round and reactive to light, extra-ocular motions intact. Lids and lashes normal. Conjunctiva and sclera are not injected. Cornea within normal limits. Periorbital areas with no swelling, redness, or edema. ENT: Nares patent. No nasal discharge, no septal abnormalities noted. Tympanic membranes are normal and external auditory canals are clear. Oropharynx with no redness, swelling, or masses, exudates, or evidence of obstruction, uvula midline. Mucous membranes moist. Neck: Trachea midline, no thyromegaly or masses palpated, and no cervical lymphadenopathy. Supple, full range of motion without nuchal rigidity, or vertebral point tenderness. Chest/axilla: Normal chest wall appearance and motion. Nontender with no deformity. No lesions are appreciated. Cardiovascular: Regular rate and rhythm with a normal S1 and S2. No gallops, murmurs, or rubs. Normal PMI, no JVD. No pulse deficits. Respiratory: Lungs have equal breath sounds bilaterally, clear to auscultation and percussion. No rales, rhonchi or wheezes noted. No increased work of breathing, no retractions or nasal flaring. Abdomen/GI: Soft, non-tender, with normal bowel sounds. No distension or tympany. No guarding or rebound. No evidence of tenderness throughout. Back: No spinal tenderness. No costovertebral tenderness. Skin: Warm, dry with normal turgor. Normal color with no rashes, no lesions, and no evidence of cellulitis. MS/ Extremity: Pulses equal, no cyanosis. Neurovascular intact. Full, normal range of motion. Neuro: Awake and alert, GCS 15, oriented to person, place, time, and situation. Cranial nerves II-XII grossly intact. Motor strength 5/5 in all extremities. Sensory grossly intact. Psych: Awake, alert, with orientation to person, place and time. Behavior, mood, and affect are within normal limits 20:29 ECG was reviewed by the Attending Physician. EKG time 2020, EKG rate 85 bpm, normal sinus rhythm, normal EKG no ectopy Vital Signs: 19:42 BP 173 / 68; Pulse 96; Resp 16; Temp 98; Pulse Ox 97% ; Weight 63.05 kg; Height 5 ft. 2 rv in. ; 20:00 BP 169 / 84; Pulse 94; Resp 16; Pulse Ox 95% on R/A; jb4 20:30 BP 160 / 68; Pulse 84; Resp 16; Pulse Ox 96% on R/A; jb4 22:00 BP 129 / 66; Pulse 73; Resp 16; Pulse Ox 93% on R/A; jb4 22:28 BP 142 / 62; Pulse 74; Resp 18; Pulse Ox 94% ; kl 19:42 Body Mass Index 25.42 (63.05 kg, 157.48 cm) rv NIH Stroke Scale Scores: 20:29 NIHSS Score: 0 sp4 [place] Coma Score: 20:29 Eye Response: spontaneous(4). Motor Response: obeys commands(6). Verbal Response: sp4 oriented(5). Total: 15. MDM: 20:15 Patient medically screened. sp4 22:12 Data reviewed: vital signs, nurses notes, old medical records, lab test result(s), EKG, sp4 radiologic studies, CT scan, plain films. Consideration of Admission/Observation Patient was admitted/placed on observation. Escalation of care including admission/observation considered. 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 . ED course: Exam reveals no signs of CVA, CT head is unremarkable.. 22:16 ED course: CT C-spine revealed significant spondylosis in the lower cervical sections. sp4 Patient will be advised to see her primary MD Dr. Mccray on Friday to obtain MRI of the neck/MRI C-spine. Patient may benefit from visit with spinal specialist. Otherwise stable for discharge home with as needed medications for pain and muscle soreness.. 03/07 20:01 Order name: Glucose, Ancillary Testing; Complete Time: 20:57 EDMS 03/07 20:14 Order name: Basic Metabolic Panel; Complete Time: 21:47 sp4 03/07 20:14 Order name: CBC with Diff; Complete Time: 20:57 sp4 03/07 20:14 Order name: LFT's; Complete Time: 21:47 sp4 03/07 20:14 Order name: Magnesium; Complete Time: 21:47 sp4 03/07 20:14 Order name: NT PRO-BNP; Complete Time: 21:47 sp4 03/07 20:14 Order name: PT-INR; Complete Time: 20:57 sp4 03/07 20:14 Order name: Troponin HS; Complete Time: 21:47 sp4 03/07 20:14 Order name: XRAY Chest (1 view); Complete Time: 21:47 sp4 03/07 20:15 Order name: CT Head C Spine; Complete Time: 21:47 sp4 03/07 20:14 Order name: EKG; Complete Time: 20:15 sp4 03/07 20:14 Order name: Cardiac monitoring; Complete Time: 20:26 sp4 03/07 20:14 Order name: EKG - Nurse/Tech; Complete Time: 20:26 sp4 03/07 20:14 Order name: IV Saline Lock; Complete Time: 20:50 sp4 03/07 20:14 Order name: Labs collected and sent; Complete Time: 20:50 sp4 03/07 20:14 Order name: O2 Per Protocol; Complete Time: 20:26 sp4 03/07 20:14 Order name: O2 Sat Monitoring; Complete Time: 20:26 sp4 EC:29 Rate is 85 beats/min. Rhythm is regular. QRS [place] is Normal. [place] interval is shortened. sp4 QRS interval is normal. QT interval is normal. T waves are Normal. No ST changes noted. Clinical impression: No evidence of ischemia. Interpreted by me. Administered Medications: 20:25 Drug: Ondansetron PO 4 mg Route: PO; lg3 20:26 Drug: Hayden PO 10 mg-325 mg 1 tabs Route: PO; lg3 20:26 Drug: Methocarbamol PO 750 mg Route: PO; lg3 20:26 Drug: Ibuprofen PO 400 mg Route: PO; lg3 Disposition Summary: 03/07/23 22:18 Discharge Ordered Location: Home sp4 Problem: new sp4 Symptoms: have improved sp4 Condition: Stable sp4 Diagnosis - Acute cervical pain, cervical spinal spondylosis and degenerative changes sp4 - Acute neck pain with dizziness sp4 Followup: sp4 - With: Liam Mccray MD - When: 2 - 3 days - Reason: Recheck today's complaints Discharge Instructions: - Discharge Summary Sheet sp4 - Arthritis, [id number] sp4 Forms: - [email or web address] sp4 Prescriptions: - Ibuprofen 600 mg Oral Tablet - take 1 tablet by ORAL route every 6 hours As needed take with food; 30 tablet; sp4 Refills: 0, Product Selection Permitted - Tramadol 50 mg Oral Tablet - take 1 tablet by ORAL route every 6 hours as needed; 20 tablet; Refills: 0, sp4 Product Selection Permitted - methocarbamol 750 mg Oral Tablet - take 1 tablet by ORAL route every 6 hours for 2 days PRN muscle soreness; 60 sp4 tablet; Refills: 0, Product Selection Permitted NIH Stroke Scale - NIH Stroke Score Date: 03/07/2023 Time: 20:29 Total Score = 0 10. Dysarthria (speech clarity - read or repeat words) - 0(Normal) 11. Extinction and Inattention (visual/tactile/auditory/spatial/personal) - 0(No abnormality) 1a. Level of Consciousness (LOC) - 0(Alert) 1b. Level of Consciousness (LOC) (Month \T\ Age) - 0(Both) 1c. LOC Commands (Open \T\ Closes Eyes/Safety Intern) - 0(Both) 2. Best Gaze (Lateral Gaze Paresis) - 0(Normal) 3. Visual Field Loss - 0(No visual loss) 4. Facial Palsy - 0(Normal) 5a. Left Arm: Motor (10-second hold) - 0(No drift) 5b. Right Arm: Motor (10-second hold) - 0(No drift) 6a. Left Leg: Motor (5-second hold - always test supine) - 0(No drift) 6b. Right Leg: Motor (5-second hold - always test supine) - 0(No drift) 7. Limb Ataxia (finger/nose \T\ heel/orjas - test with eyes open) - 0(Absent) 8. Sensory Loss (pinprick arms/legs/face) - 0(Normal) 9. Best Language: Aphasia (description/naming/reading) - 0(No aphasia) Initials: sp4 Signatures: Dispatcher [employer] EDMaury Hernandez RN Francheska Javed RN RN lg3 Mark Pruitt MD MD sp4
[2023-03-07 23:05] VITALS: TEMP 98
[2023-03-07 23:11] VITALS: BP 142/62; O2SAT 94
--- NOTE | 2023-03-10 19:34 | EKG ---
Test Date: 2023-03-07 Test Time: 20:21:21 Front End Wheel Loader Operator: RV MEASUREMENT RESULTS: Intervals: Rate: 85 RI: 106 QRSD: 82 QT: 374 QTc: 445 [place]: P: 60 RI: 106 QRS: -14 T: 59 INTERPRETIVE STATEMENTS: Sinus rhythm with short RI Otherwise normal ECG Compared to ECG 03/08/2022 08:20:45 Short RI interval now present Electronically Signed On 03-10-23 19:29:40 CDT by Phillip Luna
== END 2023-03-07 22:32 | disposition home or self-care (01) ==
LOC: ER 19:37
DX: M47.892 Other spondylosis, cervical region (principal); R42 Dizziness and giddiness; E11.9 Type 2 diabetes mellitus without complications; I10 Essential (primary) hypertension
CPT/HCPCS: 93005; 85025; 80048; 36415; 83735; 85610; 82947; 80076; 84484; 83880; 70450; 72125; 71045; 99284; Q0162

== ENCOUNTER 2023-11-10 18:42 | Inpatient (IN) | payer OTHER ==
--- OUTSIDE RECORDS SUMMARY | 2023-11-10 19:01 | XMS REPORT | Continuity of Care Document ---
Author Name Unknown Address [address] [facility] [address] [place] [address] [facility] thconnect Address [address] [place] [address] [address] [place] [address] Care Team Providers Care Oracle Business Intelligence Developer Name Role Phone Liam Mccray Attending Clinician Unavailable Payers Payer Name Policy Type Policy Number Effective Date Expirati on Date Source [employer] MEDICARE 53 [id number] 2019 00:00:00 [facility] Problems Condition Name Condition Details Condition Category Status Onset Date Resolution Date Last Treatment Date Treating Clinician Comments Source [id number] Status post total right knee replacemen t Problem [facility] [id number] Arthritis of knee, left Problem [facility] [id number] [id number] Arthritis of knee, right Problem [facility] [id number] Primary osteoarthr itis of both knees Problem [facility] [phone] [id number] Pain, joint, knee, right Problem [facility] [phone] Pain, joint, knee, left Problem [facility] Social History Social Habit Start Date Stop Date Quantity Comments Source Sex Assigned At [facility] History of Tobacco Use [facility] Smoking Status Start Date Stop Date Source Never Smoker [facility] Medications Ordered Medication Name Filled Medication Name Start Date Stop Date Current Medication? Ordering Clinician Indication Dosage Frequency Signature (SIG) Comments Components Source HYDROcodone -Acetaminop hen 7.5-325 MG HYDROcodone -Acetaminop hen 7.5-325 MG 2-1 0- 00:00: 00 No 1{table t_as_ne eded} HYDROcodon e-Acetamin ophen 7.5-325 MG HYDROcodone -Acetaminop hen 7.5-325 MG HYDROcodone -Acetaminop hen 7.5-325 MG 2-1 0- 00:00: 00 No 1{table t_as_ne eded} HYDROcodon e-Acetamin ophen 7.5-325 MG HYDROcodone -Acetaminop hen 7.5-325 MG HYDROcodone -Acetaminop hen 7.5-325 MG 2-1 0 00:00: 00 No 1{table t_as_ne eded} HYDROcodon e-Acetamin ophen 7.5-325 MG HYDROcodone -Acetaminop hen 7.5-325 MG HYDROcodone -Acetaminop hen 7.5-325 MG 2021- 0 00:00: 00 No 1{table t_as_ne eded} HYDROcodon e-Acetamin ophen 7.5-325 MG HYDROcodone -Acetaminop hen 7.5-325 MG HYDROcodone -Acetaminop hen 7.5-325 MG 2021- 0 00:00: 00 No 1{table t_as_ne eded} HYDROcodon e-Acetamin ophen 7.5-325 MG HYDROcodone -Acetaminop hen 7.5-325 MG HYDROcodone -Acetaminop hen 7.5-325 MG 2021- 0- 00:00: 00 No 1{table t_as_ne eded} HYDROcodon e-Acetamin ophen 7.5-325 MG HYDROcodone -Acetaminop hen 7.5-325 MG HYDROcodone -Acetaminop hen 7.5-325 MG 2021-1 0 00:00: 00 No 1{table t_as_ne eded} HYDROcodon e-Acetamin ophen 7.5-325 MG HYDROcodone -Acetaminop hen 7.5-325 MG HYDROcodone -Acetaminop hen 7.5-325 MG 2-1 0- 00:00: 00 No 1{table t_as_ne eded} HYDROcodon e-Acetamin ophen 7.5-325 MG HYDROcodone -Acetaminop hen 7.5-325 MG HYDROcodone -Acetaminop hen 7.5-325 MG 2021- 0-26 00:00: 00 No 1{table t_as_ne eded} HYDROcodon e-Acetamin ophen 7.5-325 MG HYDROcodone -Acetaminop hen 7.5-325 MG HYDROcodone -Acetaminop hen 7.5-325 MG 2021- 0- 00:00: 00 No 1{table t_as_ne eded} HYDROcodon e-Acetamin ophen 7.5-325 MG HYDROcodone -Acetaminop hen 7.5-325 MG HYDROcodone -Acetaminop hen 7.5-325 MG 2021- 0 00:00: 00 No 1{table t_as_ne eded} HYDROcodon e-Acetamin ophen 7.5-325 MG HYDROcodone -Acetaminop hen 7.5-325 MG HYDROcodone -Acetaminop hen 7.5-325 MG 2021- 0 00:00: 00 No 1{table t_as_ne eded} HYDROcodon e-Acetamin ophen 7.5-325 MG HYDROcodone -Acetaminop hen 7.5-325 MG HYDROcodone -Acetaminop hen 7.5-325 MG 2021- 0 00:00: 00 No 1{table t_as_ne eded} HYDROcodon e-Acetamin ophen 7.5-325 MG HYDROcodone -Acetaminop hen 7.5-325 MG HYDROcodone -Acetaminop hen 7.5-325 MG 2021- 0 00:00: 00 No 1{table t_as_ne eded} HYDROcodon e-Acetamin ophen 7.5-325 MG Xarelto 10 MG Xarelto 10 MG 2-1 0-24 00:00: 00 No 1{table t} QD Xarelto 10 MG Xarelto 10 MG Xarelto 10 MG 2-1 0-24 00:00: 00 No 1{table t} QD Xarelto 10 MG Xarelto 10 MG Xarelto 10 MG 2-1 0-24 00:00: 00 No 1{table t} QD Xarelto 10 MG Xarelto 10 MG Xarelto 10 MG 2-1 0-24 00:00: 00 No 1{table t} QD Xarelto 10 MG Xarelto 10 MG Xarelto 10 MG 2021-1 0-24 00:00: 00 No 1{table t} QD Xarelto 10 MG Xarelto 10 MG Xarelto 10 MG 2021-1 0-24 00:00: 00 No 1{table t} QD Xarelto 10 MG Xarelto 10 MG Xarelto 10 MG 2-1 0-24 00:00: 00 No 1{table t} QD Xarelto 10 MG Xarelto 10 MG Xarelto 10 MG 2-1 0-24 00:00: 00 No 1{table t} QD Xarelto 10 MG Xarelto 10 MG Xarelto 10 MG 2021-1 0-24 00:00: 00 No 1{table t} QD Xarelto 10 MG Xarelto 10 MG Xarelto 10 MG 2021-1 0-24 00:00: 00 No 1{table t} QD Xarelto 10 MG Xarelto 10 MG Xarelto 10 MG 2021-1 024 00:00: 00 No 1{table t} QD Xarelto 10 MG Xarelto 10 MG Xarelto 10 MG 2021-1 024 00:00: 00 No 1{table t} QD Xarelto 10 MG Xarelto 10 MG Xarelto 10 MG 2021-1 024 00:00: 00 No 1{table t} QD Xarelto 10 MG Xarelto 10 MG Xarelto 10 MG 2021-1 024 00:00: 00 No 1{table t} QD Xarelto 10 MG HYDROcodone -Acetaminop hen 7.5-325 MG HYDROcodone -Acetaminop hen 7.5-325 MG 2-0 7-05 00:00: 00 No 1{table t_as_ne eded} HYDROcodon e-Acetamin ophen 7.5-325 MG HYDROcodone -Acetaminop hen 7.5-325 MG HYDROcodone -Acetaminop hen 7.5-325 MG 2-0 7-05 00:00: 00 No 1{table t_as_ne eded} HYDROcodon e-Acetamin ophen 7.5-325 MG HYDROcodone -Acetaminop hen 7.5-325 MG HYDROcodone -Acetaminop hen 7.5-325 MG 2022-0 7-05 00:00: 00 No 1{table t_as_ne eded} HYDROcodon e-Acetamin ophen 7.5-325 MG HYDROcodone -Acetaminop hen 7.5-325 MG HYDROcodone -Acetaminop hen 7.5-325 MG 2022-0 7-05 00:00: 00 No 1{table t_as_ne eded} HYDROcodon e-Acetamin ophen 7.5-325 MG HYDROcodone -Acetaminop hen 7.5-325 MG HYDROcodone -Acetaminop hen 7.5-325 MG 2022-0 7-05 00:00: 00 No 1{table t_as_ne eded} HYDROcodon e-Acetamin ophen 7.5-325 MG HYDROcodone -Acetaminop hen 7.5-325 MG HYDROcodone -Acetaminop hen 7.5-325 MG 2-0 7- 00:00: 00 No 1{table t_as_ne eded} HYDROcodon e-Acetamin ophen 7.5-325 MG HYDROcodone -Acetaminop hen 7.5-325 MG HYDROcodone -Acetaminop hen 7.5-325 MG 2-0 7- 00:00: 00 No 1{table t_as_ne eded} HYDROcodon e-Acetamin ophen 7.5-325 MG HYDROcodone -Acetaminop hen 7.5-325 MG HYDROcodone -Acetaminop hen 7.5-325 MG 2-0 7- 00:00: 00 No 1{table t_as_ne eded} HYDROcodon e-Acetamin ophen 7.5-325 MG HYDROcodone -Acetaminop hen 7.5-325 MG HYDROcodone -Acetaminop hen 7.5-325 MG 2-0 7-05 00:00: 00 No 1{table t_as_ne eded} HYDROcodon e-Acetamin ophen 7.5-325 MG HYDROcodone -Acetaminop hen 7.5-325 MG HYDROcodone -Acetaminop hen 7.5-325 MG 2022-0 7-05 00:00: 00 No 1{table t_as_ne eded} HYDROcodon e-Acetamin ophen 7.5-325 MG HYDROcodone -Acetaminop hen 7.5-325 MG HYDROcodone -Acetaminop hen 7.5-325 MG 2022-0 7-05 00:00: 00 No 1{table t_as_ne eded} HYDROcodon e-Acetamin ophen 7.5-325 MG HYDROcodone -Acetaminop hen 7.5-325 MG HYDROcodone -Acetaminop hen 7.5-325 MG 2-0 7-05 00:00: 00 No 1{table t_as_ne eded} HYDROcodon e-Acetamin ophen 7.5-325 MG HYDROcodone -Acetaminop hen 7.5-325 MG HYDROcodone -Acetaminop hen 7.5-325 MG 2-0 7-05 00:00: 00 No 1{table t_as_ne eded} HYDROcodon e-Acetamin ophen 7.5-325 MG HYDROcodone -Acetaminop hen 7.5-325 MG HYDROcodone -Acetaminop hen 7.5-325 MG 2-0 7-05 00:00: 00 No 1{table t_as_ne eded} HYDROcodon e-Acetamin ophen 7.5-325 MG HYDROcodone -Acetaminop hen 7.5-325 MG HYDROcodone -Acetaminop hen 7.5-325 MG 2-0 7-05 00:00: 00 No 1{table t_as_ne eded} HYDROcodon e-Acetamin ophen 7.5-325 MG HYDROcodone -Acetaminop hen 7.5-325 MG HYDROcodone -Acetaminop hen 7.5-325 MG 2-0 7-05 00:00: 00 No 1{table t_as_ne eded} HYDROcodon e-Acetamin ophen 7.5-325 MG Xarelto 10 MG Xarelto 10 MG 2022-0 6-30 00:00: 00 No 1{table t} QD Xarelto 10 MG Xarelto 10 MG Xarelto 10 MG 2022-0 6-30 00:00: 00 No 1{table t} QD Xarelto 10 MG Xarelto 10 MG Xarelto 10 MG 2022-0 6-30 00:00: 00 No 1{table t} QD Xarelto 10 MG Xarelto 10 MG Xarelto 10 MG 2022-0 6-30 00:00: 00 No 1{table t} QD Xarelto 10 MG Xarelto 10 MG Xarelto 10 MG 2-0 6-30 00:00: 00 No 1{table t} QD Xarelto 10 MG Xarelto 10 MG Xarelto 10 MG 2022-0 6-30 00:00: 00 No 1{table t} QD Xarelto 10 MG Xarelto 10 MG Xarelto 10 MG 2022-0 6-30 00:00: 00 No 1{table t} QD Xarelto 10 MG Xarelto 10 MG Xarelto 10 MG 2022-0 6-30 00:00: 00 No 1{table t} QD Xarelto 10 MG Xarelto 10 MG Xarelto 10 MG 2-0 6-30 00:00: 00 No 1{table t} QD Xarelto 10 MG Xarelto 10 MG Xarelto 10 MG 2-0 6-30 00:00: 00 No 1{table t} QD Xarelto 10 MG Xarelto 10 MG Xarelto 10 MG 2-0 6-30 00:00: 00 No 1{table t} QD Xarelto 10 MG Xarelto 10 MG Xarelto 10 MG 2-0 6-30 00:00: 00 No 1{table t} QD Xarelto 10 MG Xarelto 10 MG Xarelto 10 MG 2-0 6-30 00:00: 00 No 1{table t} QD Xarelto 10 MG Xarelto 10 MG Xarelto 10 MG 2-0 6-30 00:00: 00 No 1{table t} QD Xarelto 10 MG Xarelto 10 MG Xarelto 10 MG 2-0 6-30 00:00: 00 No 1{table t} QD Xarelto 10 MG Xarelto 10 MG Xarelto 10 MG 2-0 6-30 00:00: 00 No 1{table t} QD Xarelto 10 MG Omeprazole Omeprazole No Omeprazole metFORMIN HCl metFORMIN HCl No metFORMIN HCl Gemfibrozil Gemfibrozil No Ge mfibrozi l amLODIPine Benzoate amLODIPine Benzoate No amLODIPine Benzoate ASA-APAP-Ca ff Buffered ASA-APAP-Ca ff Buffered No ASA-APAP-C aff Buffered Francine Aspirin Francine Aspirin No Francine Aspirin Potassimin Potassimin No Potassimin Glimepiride Glimepiride No Gl imepirid e Lisinopril Lisinopril No Lisinopril Atorvastati n Calcium Atorvastati n Calcium No Atorvastat in Calcium Ferrocite Ferrocite No Ferrocite Magnesium Magnesium No Magnesium Lisinopril Lisinopril No Lisinopril metFORMIN HCl metFORMIN HCl No metFORMIN HCl Gemfibrozil Gemfibrozil No Ge mfibrozi l Glimepiride Glimepiride No Gl imepirid e Magnesium Magnesium No Magnesium ASA-APAP-Ca ff Buffered ASA-APAP-Ca ff Buffered No ASA-APAP-C aff Buffered ASA-APAP-Ca ff Buffered ASA-APAP-Ca ff Buffered No ASA-APAP-C aff Buffered Francine Aspirin Francine Aspirin No Francine Aspirin Atorvastati n Calcium Atorvastati n Calcium No Atorvastat in Calcium Omeprazole Omeprazole No Omeprazole Ferrocite Ferrocite No Ferrocite Potassimin Potassimin No Potassimin amLODIPine Benzoate amLODIPine Benzoate No amLODIPine Benzoate Atorvastati n Calcium Atorvastati n Calcium No Atorvastat in Calcium Gemfibrozil Gemfibrozil No Ge mfibrozi l metFORMIN HCl metFORMIN HCl No metFORMIN HCl ASA-APAP-Ca ff Buffered ASA-APAP-Ca ff Buffered No ASA-APAP-C aff Buffered Ferrocite Ferrocite No Ferrocite Potassimin Potassimin No Potassimin Glimepiride Glimepiride No Gl imepirid e Lisinopril Lisinopril No Lisinopril Magnesium Magnesium No Magnesium Francine Aspirin Francine Aspirin No Francine Aspirin Omeprazole Omeprazole No Omeprazole ASA-APAP-Ca ff Buffered ASA-APAP-Ca ff Buffered No ASA-APAP-C aff Buffered Magnesium Magnesium No Magnesium amLODIPine Benzoate amLODIPine Benzoate No amLODIPine Benzoate Glimepiride Glimepiride No Gl imepirid e Atorvastati n Calcium Atorvastati n Calcium No Atorvastat in Calcium Gemfibrozil Gemfibrozil No Ge mfibrozi l metFORMIN HCl metFORMIN HCl No metFORMIN HCl ASA-APAP-Ca ff Buffered ASA-APAP-Ca ff Buffered No ASA-APAP-C aff Buffered Ferrocite Ferrocite No Ferrocite Potassimin Potassimin No Potassimin Francine Aspirin Francine Aspirin No Francine Aspirin Glimepiride Glimepiride No Gl imepirid e Lisinopril Lisinopril No Lisinopril Magnesium Magnesium No Magnesium Francine Aspirin Francine Aspirin No Francine Aspirin Omeprazole Omeprazole No Omeprazole ASA-APAP-Ca ff Buffered ASA-APAP-Ca ff Buffered No ASA-APAP-C aff Buffered amLODIPine Benzoate amLODIPine Benzoate No amLODIPine Benzoate Atorvastati n Calcium Atorvastati n Calcium No Atorvastat in Calcium Gemfibrozil Gemfibrozil No Ge mfibrozi l metFORMIN HCl metFORMIN HCl No metFORMIN HCl Gemfibrozil Gemfibrozil No Ge mfibrozi l ASA-APAP-Ca ff Buffered ASA-APAP-Ca ff Buffered No ASA-APAP-C aff Buffered Ferrocite Ferrocite No Ferrocite Potassimin Potassimin No Potassimin Glimepiride Glimepiride No Gl imepirid e Lisinopril Lisinopril No Lisinopril Magnesium Magnesium No Magnesium Francine Aspirin Francine Aspirin No Francine Aspirin Omeprazole Omeprazole No Omeprazole Potassimin Potassimin No Potassimin ASA-APAP-Ca ff Buffered ASA-APAP-Ca ff Buffered No ASA-APAP-C aff Buffered amLODIPine Benzoate amLODIPine Benzoate No amLODIPine Benzoate Atorvastati n Calcium Atorvastati n Calcium No Atorvastat in Calcium Gemfibrozil Gemfibrozil No Ge mfibrozi l metFORMIN HCl metFORMIN HCl No metFORMIN HCl amLODIPine Benzoate amLODIPine Benzoate No amLODIPine Benzoate ASA-APAP-Ca ff Buffered ASA-APAP-Ca ff Buffered No ASA-APAP-C aff Buffered Ferrocite Ferrocite No Ferrocite Potassimin Potassimin No Potassimin Glimepiride Glimepiride No Gl imepirid e Lisinopril Lisinopril No Lisinopril Magnesium Magnesium No Magnesium Francine Aspirin Francine Aspirin No Francine Aspirin Omeprazole Omeprazole No Omeprazole Omeprazole Omeprazole No Omeprazole ASA-APAP-Ca ff Buffered ASA-APAP-Ca ff Buffered No ASA-APAP-C aff Buffered amLODIPine Benzoate amLODIPine Benzoate No amLODIPine Benzoate Ferrocite Ferrocite No Ferrocite Atorvastati n Calcium Atorvastati n Calcium No Atorvastat in Calcium Gemfibrozil Gemfibrozil No Ge mfibrozi l metFORMIN HCl metFORMIN HCl No metFORMIN HCl ASA-APAP-Ca ff Buffered ASA-APAP-Ca ff Buffered No ASA-APAP-C aff Buffered Ferrocite Ferrocite No Ferrocite Potassimin Potassimin No Potassimin Glimepiride Glimepiride No Gl imepirid e Lisinopril Lisinopril No Lisinopril metFORMIN HCl metFORMIN HCl No metFORMIN HCl Magnesium Magnesium No Magnesium Francine Aspirin Francine Aspirin No Francine Aspirin Omeprazole Omeprazole No Omeprazole ASA-APAP-Ca ff Buffered ASA-APAP-Ca ff Buffered No ASA-APAP-C aff Buffered amLODIPine Benzoate amLODIPine Benzoate No amLODIPine Benzoate Atorvastati n Calcium Atorvastati n Calcium No Atorvastat in Calcium Gemfibrozil Gemfibrozil No Ge mfibrozi l metFORMIN HCl metFORMIN HCl No metFORMIN HCl ASA-APAP-Ca ff Buffered ASA-APAP-Ca ff Buffered No ASA-APAP-C aff Buffered Ferrocite Ferrocite No Ferrocite Potassimin Potassimin No Potassimin Glimepiride Glimepiride No Gl imepirid e Lisinopril Lisinopril No Lisinopril Magnesium Magnesium No Magnesium Atorvastati n Calcium Atorvastati n Calcium No Atorvastat in Calcium Francine Aspirin Francine Aspirin No Francine Aspirin Omeprazole Omeprazole No Omeprazole ASA-APAP-Ca ff Buffered ASA-APAP-Ca ff Buffered No ASA-APAP-C aff Buffered amLODIPine Benzoate amLODIPine Benzoate No amLODIPine Benzoate Lisinopril Lisinopril No Lisinopril Atorvastati n Calcium Atorvastati n Calcium No Atorvastat in Calcium Gemfibrozil Gemfibrozil No Ge mfibrozi l metFORMIN HCl metFORMIN HCl No metFORMIN HCl ASA-APAP-Ca ff Buffered ASA-APAP-Ca ff Buffered No ASA-APAP-C aff Buffered Ferrocite Ferrocite No Ferrocite Potassimin Potassimin No Potassimin Glimepiride Glimepiride No Gl imepirid e Lisinopril Lisinopril No Lisinopril ASA-APAP-Ca ff Buffered ASA-APAP-Ca ff Buffered No ASA-APAP-C aff Buffered Magnesium Magnesium No Magnesium Francine Aspirin Francine Aspirin No Francine Aspirin Omeprazole Omeprazole No Omeprazole ASA-APAP-Ca ff Buffered ASA-APAP-Ca ff Buffered No ASA-APAP-C aff Buffered amLODIPine Benzoate amLODIPine Benzoate No amLODIPine Benzoate Atorvastati n Calcium Atorvastati n Calcium No Atorvastat in Calcium Gemfibrozil Gemfibrozil No Ge mfibrozi l metFORMIN HCl metFORMIN HCl No metFORMIN HCl ASA-APAP-Ca ff Buffered ASA-APAP-Ca ff Buffered No ASA-APAP-C aff Buffered Ferrocite Ferrocite No Ferrocite Potassimin Potassimin No Potassimin Glimepiride Glimepiride No Gl imepirid e Lisinopril Lisinopril No Lisinopril Magnesium Magnesium No Magnesium Francine Aspirin Francine Aspirin No Francine Aspirin Omeprazole Omeprazole No Omeprazole ASA-APAP-Ca ff Buffered ASA-APAP-Ca ff Buffered No ASA-APAP-C aff Buffered amLODIPine Benzoate amLODIPine Benzoate No amLODIPine Benzoate Atorvastati n Calcium Atorvastati n Calcium No Atorvastat in Calcium Gemfibrozil Gemfibrozil No Ge mfibrozi l metFORMIN HCl metFORMIN HCl No metFORMIN HCl ASA-APAP-Ca ff Buffered ASA-APAP-Ca ff Buffered No ASA-APAP-C aff Buffered Ferrocite Ferrocite No Ferrocite Potassimin Potassimin No Potassimin Glimepiride Glimepiride No Gl imepirid e Lisinopril Lisinopril No Lisinopril Magnesium Magnesium No Magnesium Magnesium Magnesium No Magnesium Francine Aspirin Francine Aspirin No Francine Aspirin Omeprazole Omeprazole No Omeprazole ASA-APAP-Ca ff Buffered ASA-APAP-Ca ff Buffered No ASA-APAP-C aff Buffered amLODIPine Benzoate amLODIPine Benzoate No amLODIPine Benzoate Glimepiride Glimepiride No Gl imepirid e Atorvastati n Calcium Atorvastati n Calcium No Atorvastat in Calcium Gemfibrozil Gemfibrozil No Ge mfibrozi l metFORMIN HCl metFORMIN HCl No metFORMIN HCl ASA-APAP-Ca ff Buffered ASA-APAP-Ca ff Buffered No ASA-APAP-C aff Buffered Ferrocite Ferrocite No Ferrocite Potassimin Potassimin No Potassimin Francine Aspirin Francine Aspirin No Francine Aspirin Glimepiride Glimepiride No Gl imepirid e Lisinopril Lisinopril No Lisinopril Magnesium Magnesium No Magnesium Francine Aspirin Francine Aspirin No Francine Aspirin Omeprazole Omeprazole No Omeprazole ASA-APAP-Ca ff Buffered ASA-APAP-Ca ff Buffered No ASA-APAP-C aff Buffered amLODIPine Benzoate amLODIPine Benzoate No amLODIPine Benzoate Gemfibrozil Gemfibrozil No Ge mfibrozi l Potassimin Potassimin No Potassimin amLODIPine Benzoate amLODIPine Benzoate No amLODIPine Benzoate Omeprazole Omeprazole No Omeprazole Ferrocite Ferrocite No Ferrocite metFORMIN HCl metFORMIN HCl No metFORMIN HCl Atorvastati n Calcium Atorvastati n Calcium No Atorvastat in Calcium Lisinopril Lisinopril No Lisinopril ASA-APAP-Ca ff Buffered ASA-APAP-Ca ff Buffered No ASA-APAP-C aff Buffered ASA-APAP-Ca ff Buffered ASA-APAP-Ca ff Buffered No ASA-APAP-C aff Buffered Ferrocite Ferrocite No Ferrocite Lisinopril Lisinopril No Lisinopril Glimepiride Glimepiride No Gl imepirid e Francine Aspirin Francine Aspirin No Francine Aspirin Gemfibrozil Gemfibrozil No Ge mfibrozi l Magnesium Magnesium No Magnesium metFORMIN HCl metFORMIN HCl No metFORMIN HCl Omeprazole Omeprazole No Omeprazole Potassimin Potassimin No Potassimin amLODIPine Benzoate amLODIPine Benzoate No amLODIPine Benzoate Atorvastati n Calcium Atorvastati n Calcium No Atorvastat in Calcium Gemfibrozil Gemfibrozil No Ge mfibrozi l amLODIPine Benzoate amLODIPine Benzoate No amLODIPine Benzoate Omeprazole Omeprazole No Omeprazole Francine Aspirin Francine Aspirin No Francine Aspirin ASA-APAP-Ca ff Buffered ASA-APAP-Ca ff Buffered No ASA-APAP-C aff Buffered Potassimin Potassimin No Potassimin Glimepiride Glimepiride No Gl imepirid e metFORMIN HCl metFORMIN HCl No metFORMIN HCl Magnesium Magnesium No Magnesium Lisinopril Lisinopril No Lisinopril Ferrocite Ferrocite No Ferrocite Atorvastati n Calcium Atorvastati n Calcium No Atorvastat in Calcium Vital Signs Vital Name Observation Time Observation Value Romina jewell height 2022-08-19 10:00:00 62 [in_i] Commo n [facility] weight 2022-08-19 10:00:00 133 [lb_av] Comm on [facility] temperature 2022-08-19 10:00:00 97.6 [degF] Com [facility] bmi 2022-08-19 10:00:00 24.32 kg/m2 Comm on [facility] blood pressure systolic 2022-08-19 10:00:00 124 mm[Hg] [facility] blood pressure diastolic 2022-08-19 10:00:00 72 mm[Hg] Common [facility] height 2022-08-05 11:00:00 62 [in_i] Commo n [facility] weight 2022-08-05 11:00:00 133 [lb_av] Comm on [facility] temperature 2022-08-05 11:00:00 97.5 [degF] Com [facility] bmi 2022-08-05 11:00:00 24.32 kg/m2 Comm on [facility] blood pressure systolic 2022-08-05 11:00:00 121 mm[Hg] [facility] pressure diastolic 2022-08-05 11:00:00 73 mm[Hg] Common [facility] height 2022-07-18 11:00:00 62 [in_i] Commo n [facility] weight 2022-07-18 11:00:00 135 [lb_av] Comm on [facility] temperature 2022-07-18 11:00:00 98.0 [degF] Com [facility] bmi 2022-07-18 11:00:00 24.69 kg/m2 Comm on [facility] blood pressure systolic 2022-07-18 11:00:00 125 mm[Hg] Common [facility] blood pressure diastolic 2022-07-18 11:00:00 75 mm[Hg] [facility] height 2022-07-08 14:00:00 62 [in_i] Commo n [facility] weight 2022-07-08 14:00:00 140 [lb_av] Comm on [facility] temperature 2022-07-08 14:00:00 97.3 [degF] Com [facility] bmi 2022-07-08 14:00:00 25.6 kg/m2 Commo n [facility] blood pressure systolic 2022-07-08 14:00:00 110 mm[Hg] [facility] blood pressure diastolic 2022-07-08 14:00:00 60 mm[Hg] [facility] height 2022-06-10 10:00:00 62 [in_i] Commo n [facility] weight 2022-06-10 10:00:00 140 [lb_av] Comm on [facility] temperature 2022-06-10 10:00:00 97.0 [degF] Com [facility] bmi 2022-06-10 10:00:00 25.6 kg/m2 Commo n [facility] blood pressure systolic 2022-06-10 10:00:00 136 mm[Hg] Common [facility] blood pressure diastolic 2022-06-10 10:00:00 80 mm[Hg] [facility] height 2022-04-24 10:00:00 62 [in_i] Commo n [facility] weight 2022-04-24 10:00:00 140 [lb_av] Comm on [facility] temperature 2022-04-24 10:00:00 97.2 [degF] Com mon [facility] bmi 2022-04-24 10:00:00 25.6 kg/m2 Commo n [facility] blood pressure systolic 2022-04-24 10:00:00 130 mm[Hg] Common [facility] blood pressure diastolic 2022-04-24 10:00:00 78 mm[Hg] [facility] height 2022-04-10 10:00:00 62 [in_i] Commo n [facility] weight 2022-04-10 10:00:00 140 [lb_av] Comm on [facility] bmi 2022-04-10 10:00:00 25.6 kg/m2 Commo n [facility] blood pressure systolic 2022-04-10 10:00:00 134 mm[Hg] Common [facility] blood pressure diastolic 2022-04-10 10:00:00 72 mm[Hg] Common [facility] height 2022-03-27 09:00:00 62 [in_i] Commo n [facility] weight 2022-03-27 09:00:00 144 [lb_av] Comm on [facility] bmi 2022-03-27 09:00:00 26.34 kg/m2 Comm on [facility] blood pressure systolic 2022-03-27 09:00:00 132 mm[Hg] Common [facility] blood pressure diastolic 2022-03-27 09:00:00 70 mm[Hg] Common [facility] height 2022-03-07 11:00:00 62 [in_i] Commo n [facility] weight 2022-03-07 11:00:00 144 [lb_av] Comm on [facility] bmi 2022-03-07 11:00:00 26.34 kg/m2 Comm on [facility] blood pressure systolic 2022-03-07 11:00:00 124 mm[Hg] [facility] blood pressure diastolic 2022-03-07 11:00:00 72 mm[Hg] [facility] height 2022-02-06 13:00:00 62 [in_i] Commo n [facility] weight 2022-02-06 13:00:00 144.7 [lb_av] Co mmon [facility] bmi 2022-02-06 13:00:00 26.46 kg/m2 Comm on [facility] blood pressure systolic 2022-02-06 13:00:00 125 mm[Hg] [facility] blood pressure diastolic 2022-02-06 13:00:00 75 mm[Hg] [facility] Encounters Start Date/Time End Date/Time Encounter Type Admission Type Attending [facility] Care Department Encounter ID Source 2022-07-17 09:06:03 Outpatient Mccray, Liam [facility] [id number] [facility] 2022-06-10 09:51:03 Out[facility] [id number] [facility] 2022-05-03 11:44:02 Outpatient Mccray, [facility] [id number] [facility] 2022-04-30 08:51:03 Outpatient Mccray, Liam [facility] [id number] [facility] 2022-04-10 09:53:03 Outpatient Mccray, Liam [facility] [id number] [facility] 2022-03-27 08:55:03 Outpatient [facility] [id number] [facility] 2022-08-19 00:00:00 2022-08-19 00:00:00 NON-BILLAB LE VISIT [facility] [id number] [facility] 2022-08-05 00:00:2022-08-05 00:00:00 NON-BILLAB LE VISIT STLMLC ST[facility]C [id number] [facility] 2022-07-18 00:00:00 2022-07-18 00:00:00 (PO) Post Op STLMLC STL[facility]C [id number] [facility] 2022-07-08 00:00:00 2022-07-08 00:00:00 NON-BILLAB LE VISIT STLMLC STLMLC [id number] [facility] 2022-07-01 00:00:00 2022-07-01 00:00:00 (TEL) STLMLC STLMLC [id number] [facility] 2022-06-17 00:00:00 2022-06-17 00:00:00 (TEL) STLMLC STLMLC [id number] [facility] 2022-06-10 00:00:00 2022-06-10 00:00:00 Postop visit STLMLC STLMLC [id number] [facility] 2022-04-24 00:00:00 2022-04-24 00:00:00 NON-BILLAB LE VISIT STLMLC STLMLC [id number] [facility] 2022-04-19 00:00:00 2022-04-19 00:00:00 (TEL) STLMLC STLMLC [id number] [facility] 2022-04-10 00:00:00 2022-04-10 00:00:00 NON-BILLAB LE VISIT STLMLC STLMLC [id number] [facility] 2022-03-27 00:00:00 2022-03-27 00:00:00 (TEL) STLMLC STLMLC [id number] [facility] 2022-03-27 00:00:00 2022-03-27 00:00:00 NON-BILLAB LE VISIT STLMLC STLMLC [id number] [facility] 2022-03-07 00:00:00 2022-03-07 00:00:00 OFFICE VISIT ESTAB PT LEVEL 3 STLMLC STLMLC [id number] [facility] 2022-03-07 00:00:00 2022-03-07 00:00:00 (TEL) STLMLC STLMLC [id number] [facility] 2022-02-12 00:00:00 2022-02-12 00:00:00 (TEL) STLMLC STLMLC [id number] [facility] 2022-02-06 00:00:00 2022-02-06 00:00:00 OFFICE VISIT NEW PT LEVEL 3 STLMLC STLMLC [id number] [facility] 2021-06-11 00:00:00 2021-06-11 00:00:00 Outpatient PRIV PRIV [id number] [facility] 2021-06-11 00:00:00 2021-06-11 00:00:00 Outpatient PRIV PRIV [id number] [facility] 2021-06-11 00:00:00 2021-06-11 00:00:00 Outpatient PRIV PRIV [id number] [facility] 2021-06-11 00:00:00 2021-06-11 00:00:00 Outpatient PRIV PRIV [id number] [facility]
[2023-11-10] MEDS ORDERED: GLUCAGON 1 MG/VIAL IM PRN (19:23)
[2023-11-10] MEDS ORDERED: D10W 250 ML BAG IV PRN (19:33)
[2023-11-10] MEDS: Levofloxacin500mg IV 500 MG/100 ML BAG IV SCH (20:00)
[2023-11-10 20:08] LABS: Absolute Eosinophils 0.1 K/uL (0-0.5); Absolute Lymphocytes (CBC) 1.5 K/uL (0.7-4.9); Absolute Monocytes 0.3 K/uL (0.1-1.3); Basophils % 0.5 % (0-1.3); Eosinophils % 1.5 % (0-4.4); Hematocrit 36.3 % (36.0-45.0); Hemoglobin 12.3 g/dL (12.0-15.0); Lymphocytes % 21.2 % (15.3-44.8); MCH 30.6 pg (27.0-35.0); MCHC 33.9 g/dL (32.0-36.0); MCV 90.3 fL (80-100); MPV 8.1 fL (7.6-11.3); Monocytes % 4.7 % (3.3-12.3); Neutrophils % 72.1 % (41.7-73.7); Nucleated Red Blood Cells % 0.1 % (0-0); Platelets 246 thou/uL (152-406); RBC Red Blood Cell Count 4.02 M/uL (3.86-4.86); Red Cell Distribution Width 14.9 % (12.1-15.2)
--- NOTE | 2023-11-10 20:11 | RAD REPORT ---
EXAM DESCRIPTION: RAD - Chest Pa And Lat (2 Views) - 11/10/2023 7:46 pm CLINICAL HISTORY: RUQ pain COMPARISON: Chest Single View dated 03/07/2023; Chest Pa And Lat (2 Views) dated 03/08/2022; Abdomen Ac kyle Series dated 04/25/2018; Chest Single View dated 04/24/2018 TECHNIQUE: PA and lateral views of the chest were obtained. FINDINGS: The lungs are clear. Heart size is normal and central vasculature is within normal limits. No pleural effusion or pneumothorax seen. No acute bony finding noted. IMPRESSION: No acute cardiopulmonary process.
[2023-11-10] MEDS: Levofloxacin500mg IV 500 MG/100 ML BAG IV ONE (20:32)
[2023-11-10] MEDS: ROPINIROLE HCL 0.25 MG TAB PO SCH (20:33)
[2023-11-10] MEDS: lisinopriL 10 MG TAB PO SCH (20:33)
[2023-11-10] MEDS: ATORVASTATIN 20 MG TAB PO SCH (20:33)
[2023-11-10 20:46] LABS: Albumin 4.2 g/dL (3.4-5.0); Albumin/Globulin Ratio 1.4 (1.1-1.8); Anion Gap 7.9 mEq/L (5.0-15.0); Bilirubin Total 0.7 mg/dL (0.2-1.0); Magnesium 1.9 mg/dL (1.6-2.4); Potassium 3.9 mEq/L (3.5-5.1); Protein, Total 7.2 g/dL (6.4-8.2)
[2023-11-10] MEDS: INSULIN REGULAR (HUMAN) 100 UNIT/ML SQ SCH (21:00)
[2023-11-10 21:24] VITALS: BMI 24.9
[2023-11-10 22:29] LABS: Specific Gravity 1.013 (1.005-1.030); Urine Bilirubin NEGATIVE (Negative); Urine Blood Negative (Negative); Urine Clarity Clear (Clear); Urine Color Light-Yellow (Yellow); Urine Glucose 4+ (Over) (Negative); Urine Protein NEGATIVE (Negative); Urine Urobilinogen Normal (Normal)
[2023-11-10] MEDS: POTASSIUM CL SA 10 MEQ TAB PO ONE (23:51)
[2023-11-11 04:37] LABS: Anion Gap 7.6 mEq/L (5.0-15.0); Potassium 3.6 mEq/L (3.5-5.1)
[2023-11-11] MEDS: PANTOPRAZOLE 40MG TABLET PO SCH (05:24)
[2023-11-11] MEDS: POTASSIUM CL SA 10 MEQ TAB PO ONE (05:25)
--- NOTE | 2023-11-11 07:02 | RAD REPORT ---
EXAM DESCRIPTION: US - Abdomen Exam Complete - 11/11/2023 5:11 am CLINICAL HISTORY: RUQ pain COMPARISON: Small Bowel Series dated 12/08/2018; Thorax Wo Con dated 03/13/2022 FINDINGS: No aortic aneurysm. Hypoechoic lesion in the right hepatic lobe measuring 6 millimeters is too small to characterize but probably benign. A 1.8 cm echogenic lesion in the right hepatic lobe is most consistent with a phil ioma. Increased echogenicity of the liver. The portal vein is patent. The IVC at the level of the liver is unremarkable. No ascites. The gallbladder is unremarkable. No pericholecystic fluid, wall thickening, or gallstones identified. No biliary ductal dilatation. The pancreas was grossly unremarkable. The right kidney measures 12.1 cm normal echotexture. No hydronephrosis. No suspicious masses. The left kidney measures 11.8 cm with a normal echotexture. No hydronephrosis. No suspicious masses. The spleen is unremarkable. IMPRESSION: 1. Negative for cholelithiasis or acute cholecystitis. No biliary duct dilatation. 2. Hepatic steatosis. Small benign liver lesions .
--- NOTE | 2023-11-11 08:21 | RAD REPORT ---
EXAM DESCRIPTION: CTAbdomen Pelvis W Contrast - 11/11/2023 8:09 am CLINICAL HISTORY: R sided abd pain COMPARISON: Abdomen Pelvis W Contrast dated 04/25/2018; Abdomen Pelvis W Contrast dated 03/31/2016 ; Abdomen Exam Complete dated 11/11/2023 TECHNIQUE: CT of the abdomen and pelvis was performed with IV contrast. All CT scans are performed using dose optimization technique as appropriate and may include automated exposure control or mA/KV adjustment according to patient size. FINDINGS: Lower chest: No acute abnormality. Liver: 9 liver lesions including a flash fill hemangioma in the right hepatic lobe measuring 9 millim eters. Biliary: No biliary ductal dilatation. Possible tiny wall calcification or calcified gallstone along the lateral gallbladder fundus. Common bile duct measures 6 millimeters which is within normal limits for age. Stomach: No significant focal abnormality. Duodenum: No significant focal abnormality. Pancreas: 5 millimeters cystic lesion at the pancreatic body on image 28, series 3. This was not prev iously identified. Spleen: No significant abnormality. Adrenal: No suspicious lesions. Kidney/ureter: No hydronephrosis. No renal calculi. Retroperitoneum: No retroperitoneal adenopathy. Vascular: No aneurysm. Bowel: Mild diverticulosis. No evidence of acute diverticulitis. No bowel obstruction.. Normal append ix. Peritoneum: No ascites or free air. Bladder: Grossly unremarkable. Reproductive: No adnexal masses. Bones: No acute fracture. Other: n/a IMPRESSION: No acute intra-abdominal or pelvic finding. Subcentimeter cystic lesion to pancreatic body could represent a small intraductal papillary mucinous neoplasm (IPMN). No pancreatic ductal dilatation. Could consider 12 month follow-up MRCP if clinical ly indicated. These typically have a low malignant potential.
[2023-11-11] MEDS: D5 0.9 NS 1,000 ML IV SCH (08:50)
--- NOTE | 2023-11-11 17:05 | EKG ---
Test Date: 2023-11-10 Test Time: 23:43:39 Mixing Machine Tender Cork Gasket: BEAR MEASUREMENT RESULTS: Intervals: Rate: 82 CT: 146 QRSD: 82 QT: 384 QTc: 448 [place]: P: -10 CT: 146 QRS: -11 T: 41 INTERPRETIVE STATEMENTS: Normal sinus rhythm Normal ECG Compared to ECG 03/07/2023 20:21:[address] interval no longer present Electronically Signed On 11-11-23 17:02:41 FUR TRIMMING MACHINE OPERATOR by Anthony Dent
[2023-11-11] MEDS: Levofloxacin 750mg IV 750 MG/150 ML BAG IV SCH (20:18)
--- NOTE | 2023-11-11 20:30 | PN ---
Date of Progress Note: 11/11/2023 Subjective: The patient was seen this morning for followup. She continues to have right upper quadr ant pain. No other new complaints reported. Objective: Vital Signs: Reviewed. HEENT: Unremarkable. Lungs: Clear to auscultation. Heart: Sounds normal. Abdomen: Soft. Bowel sounds normal. No guarding, rigidity, distention. Presence of mild tendernes s in right upper quadrant, unchanged from yesterday. Extremities: No leg edema. Laboratory Data: Abdominal ultrasound showed about 1.8 cm hemangioma in the right lobe of the liver and small hepatic lesion, likely benign cyst type of lesion and fatty liver. No evidence of gallston es or cholecystitis on the ultrasound. Sodium 140, potassium 3.6, chloride 106, bicarb 30, BUN 10, c reatinine 0.45, glucose 131. Impression: 1.Right upper quadrant abdominal pain. 2.Type 2 diabetes mellitus. 3.Hypertension. 4.Fatty liver disease. Plan: We will go ahead and continue current medications. IV fluid was started. After I saw her, ul trasound results reviewed and CAT scan of the abdomen was ordered and once that result became availab le, HIDA scan was ordered to look for biliary dyskinesia. We will continue to follow with Dr. Sabino aldana. If HIDA scan comes back abnormal, then the patient will need gallbladder surgery and plan of treatment was discussed with the patient. NATHEN/MODL Voice ID: [id number] Report ID: [id number]
[2023-11-12 04:35] LABS: Anion Gap 9.5 mEq/L (5.0-15.0); Potassium 3.5 mEq/L (3.5-5.1)
--- NOTE | 2023-11-12 09:03 | RAD REPORT ---
EXAM DESCRIPTION: NM - Hepatobiliary System W/ Ph - 11/12/2023 8:44 am CLINICAL HISTORY: Abdominal pain COMPARISON: None. TECHNIQUE: The patient was administered 6.1 mCi Tc99m Choletee. Imaging of the right upper quadrant was performed initially for up to 60 minutes. The patient was administered synthetic CCK over a slow 30 minute infusion. TISH measurements were obtained of the gallbladder and an ejection fraction calcul ated. Synthetic CCK dosage was 1.2ugm. FINDINGS: There is homogeneous uptake of radiopharmaceutical throughout the liver. There is no delay in visualization of the biliary tree or duodenum. Gallbladder visualizes within normal time limits. Suboptimal evacuation of tracer by the termination of the study. The calculated ejection fraction is 30%. The patient reported no pain prior to the procedure and no symptoms during or subsequent to synthetic CCK infusion. IMPRESSION: Patent cystic duct and patent sphincter of Oddi. No delay in visualization of the gallbl adder, biliary tree, or duodenum. Ejection fraction is reduced, 30%, which may indicate functional gallbladder abnormality. Patient reported no pre-procedure pain, and no pain during or subsequent to synthetic CCK infusion.
--- NOTE | 2023-11-12 10:05 | P.CNS ---
Date of Consult: 11/11/23 Chief Complaint: RUQ pain intractable History of Present Illness: 78 y/o with intractable RUQ pain associated with nausea. More than one episode with this time the pain was so bas that she was admitted. Pt denies eating anything out of the usual. Allergies red dye Allergy (Verified 06/27/22 08:47) Hives Home Medications: Aspirin [Francine Chewable Aspirin] 81 mg PO DAILY 04/25/18 Atorvastatin Calcium [Lipitor*] 20 mg PO DAILY 04/25/18 Omeprazole [Prilosec] 1 cap PO DAILY 04/25/18 gemfibroziL [Lopid*] 600 mg PO BID 04/25/18 lisinopriL [Prinivil*] 2 tab PO DAILY AFTER SUPPER 04/25/18 Empagliflozin [Jardiance] 10 mg PO DAILY 11/12/23 Ropinirole HCl 0.5 mg PO BEDTIME 11/12/23 - Past Medical/Surgical History Diabetic: Yes -: HTN -: GERD -: DM -: hysterectomy -: right knee arthroplasty (03/12/22) - Family History Mother Medical History: Hypertension, Diabetes - Social History Alcohol use: No CD- Drugs: No Caffeine use: No Place of Residence: Home Review of Systems General: As per HPI Eyes: Unremarkable ENT: Unremarkable Respiratory: Unremarkable Gastrointestinal: Nausea, Abdominal Pain, Distention, As per HPI (LAst colonoscopy and EGD by DR chance less than 2 years ago per patient . No ulcers mentioned) Genitourinary: Unremarkable Musculoskeletal: Unremarkable Neurological: Unremarkable Physical Examination Temp Pulse Resp BP Pulse Ox 97.3 F 76 16 141/71 H 95 11/12/23 04:00 11/12/23 04:00 11/12/23 04:00 11/12/23 04:00 11/12/23 04:00 General: Alert, Oriented x3, Cooperative HEENT: PERRLA, EOMI, Sclerae nonicteric Neck: Supple Respiratory: Clear to auscultation bilaterally Cardiovascular: Regular rate/rhythm Gastrointestinal: Tenderness (RUQ), Guarding Musculoskeletal: No erythema, No tenderness, No warmth Integumentary: No rashes, No breakdown, No erythema, No warmth, No cyanosis Neurological: Normal speech Laboratory Data (last 24 hrs) 11/12/23 03:19 Sodium 141 Potassium 3.5 BUN 7 Creatinine 0.52 L Glucose 159 H Conclusions/Impression: RUQ u/s if positive consider LAp Vs Open everardo If negative3 then HIDA BAR of LAp vs open cholecystectomy discussed with patient, and .
[2023-11-12] MEDS: NA CHLORIDE 0.9% 1,000 ML ONE (10:35)
[2023-11-12] MEDS ORDERED: FENTANYL CITR 100 MCG/2 ML ONE (11:01)
[2023-11-12] MEDS ORDERED: ONDANSETRON 4 MG/2 ML VIAL ONE (11:01)
[2023-11-12] MEDS ORDERED: LIDOCAINE 1% MPF 5 ML VIAL ONE (11:01)
[2023-11-12] MEDS ORDERED: propofoL 200 MG/20 ML VIAL IV ONE (11:01)
[2023-11-12] MEDS ORDERED: ROCURONIUM 50 MG/5 ML VIAL IV ONE (11:01)
[2023-11-12] MEDS ORDERED: KETOROLAC 30 MG/ML INJ ONE (11:02)
[2023-11-12] MEDS ORDERED: GLYCOPYRROLATE 0.2 MG/ML SYR ONE ×3 (11:23→11:54)
[2023-11-12] MEDS ORDERED: EPHEDRINE SULF 50 MG/ML VIAL ONE (11:31)
[2023-11-12] MEDS ORDERED: NEOSTIGMINE 1 MG/ML -10 ML VIAL ONE (11:54)
--- NOTE | 2023-11-12 11:58 | P.BOP ---
Preoperative diagnosis: intractable RUQ abd pain, biliary dyskinesia, acute cholecystitis Postoperative diagnosis: same Primary procedure: Laparoscopic cholecystectomy Estimated blood loss: <10cc Specimen: gb Findings: as above Anesthesia: General Complications: None Transferred to: Recovery Room Condition: Good
[2023-11-12] MEDS ORDERED: MORPHINE 2 MG/ML SYR IV PRN (12:10)
--- NOTE | 2023-11-12 12:50 | PN ---
Date of Progress Note: 11/12/2023 Ms. Hammer is an 78-year-old patient, admitted to the hospital with recurrent epigastric right upper quadrant pain, intractable. We have workup done in that area including CAT scan, ultrasound, also H AMANDO scan and showing biliary dyskinesia. I discussed with the patient the options of biliary dyskine hawa, discussed also with the primary doctor and she wants to have a cholecystectomy done during this admission. So we explained to her once again the benefits, alternatives, and risks of laparoscopic, possible open cholecystectomy, which include, but not limited to infection, bleeding, damage to adjac ent structures, anesthesia complication, bile leak, MS, even . She also understands that this m ay not relieve any of her symptoms. She might need more than one surgical intervention. She underst ands even though we have biliary dyskinesia still the workup for epigastric pain should be continued specially when the CAT scan shows some findings that need followup. She understood that. She is sti ll having pain this morning. She wants the gallbladder out, so she was booked in OR. PATTY/GREGORY Voice ID: [id number] Report ID: [id number]
[2023-11-12 12:51] VITALS: O2SAT 94
--- NOTE | 2023-11-12 13:44 | OP ---
Date of Procedure: 11/12/2023 Surgeon: Himanshu Fuentes MD Preoperative Diagnoses: Intractable right upper quadrant abdominal pain, biliary dyskinesia, acute c holecystitis. Postoperative Diagnoses: Intractable right upper quadrant abdominal pain, biliary dyskinesia, acute cholecystitis. Procedure: Laparoscopic cholecystectomy. Estimated Blood Loss: Less than 10 cc. Specimen: Gallbladder. Findings: As above. Anesthesia: General plus local. Indications For Procedure: This is the case of an 78-year-old patient, who comes to us with above di agnoses with intractable right upper quadrant pain and needs to be admitted. It is not her first juan daniel e and she does not want to go home without treating that dyskinesia, so we offered laparoscopic, poss ible open cholecystectomy with benefits, alternatives, and risks including, but not limited to infect ion, bleeding, damage to adjacent structures, anesthesia complication, choledocholithiasis, bile leak , pancreatitis, DC, and even . She also understands this may not relieve symptoms. She might n eed more than one surgical intervention. She understood, signed a consent. Description Of Procedure: The patient was brought to the operating room and placed in supine positio n. Anesthesia was done without complication. Abdominal area was prepped and draped in usual sterile fashion. Marcaine 0.5% was injected for local anesthetic followed by sharp incision of the skin in the infraumbilical region. Incision was carried down to fascia, which was opened under direct vision . Peritoneum was encountered, opened under direct vision. Vicryl #1 placed inside the fascia. Brian on trocar was carefully introduced. Pneumoperitoneum was obtained. After that, I placed 3 more troc ars, 5 mm each one of them, 1 in the epigastric area, 2 in the right upper quadrant using same techni que, which consisted of local anesthetic. Sharp incision of the skin, introduction of the trocars un davonte direct vision. This allowed me to put a grasper in the fundus of the gallbladder, another graspe r in the infundibulum, retracting the gallbladder in the inferolateral fashion exposing the triangle of Calot, obtaining critical view. Cystic duct and cystic artery were clearly isolated freed circumf erentially and a connection between those and the gallbladder were clearly identified. I proceeded t o ligate those by using at least 3 clips proximal, 1 clip distal, ligation in middle. Same was done with the cystic artery. No bile leak. No bleeding. The gallbladder was removed from liver using Timur vie cauterizer and removed from the abdominal cavity using an EndoCatch through the umbilical incisio n. The area was inspected once again. No bile leak. No bleeding. I took some pictures of the live r at least anteriorly to give the patient to bring to the lock technician as they follow the liver lesions. We cannot see the pancreas. PATTY/GREGORY Voice ID: [id number] Report ID: [id number]
--- NOTE | 2023-11-12 20:21 | PN ---
Date of Progress Note: 11/12/2023 Subjective: The patient was seen this morning for followup. Vital signs reviewed. No new complaint s or problems reported overnight. Physical Examination: HEENT: Unremarkable. Lungs: Clear to auscultation. Heart: Sounds normal. Abdomen: Soft. Bowel sounds normal. No guarding, rigidity, tenderness except mild right upper quad rant tenderness unchanged. No rebound tenderness. Extremities: No leg edema. Laboratory Data: HIDA scan done today, came back abnormal. Impression: 1.Biliary dyskinesia. 2.Hypertension. 3.Type 2 diabetes mellitus. 4.Hyperlipidemia. Plan: After HIDA scan result came back, Dr. Fuentes called me and discussed details with me and he was going to offer patient 2 options. One is while she is in the hospital, to go ahead and pursue wi th laparoscopic cholecystectomy in view of abnormal HIDA scan or if she does not want to do any surge ry right now, then to schedule elective outpatient surgery and after giving all these options, the nuria garrett elected to go for surgery and the patient had laparoscopic cholecystectomy during later part of the day today and I will see her tomorrow and our plan is to discharge her to go home tomorrow. NATHEN/MODL Voice ID: [id number] Report ID: [id number]
[2023-11-12] MEDS: HYDROCODONE/APAP 5/325 MG TAB PO PRN (21:23)
--- NOTE | 2023-11-12 22:03 | HP ---
Date of Admission: 11/10/2023 Chief Complaint: Abdominal pain. History Of Present Illness: This is an 78-year-old pleasant female patient, who came into office today with 2 to 3 weeks' history of right upper quadrant abdominal pain. The patient's pain is intermittent. Denies any heartburn or indigestion. Had 1 episode of vomiting after eating Brazilian food last week. Occasionally, she has some pain in the right posterior lower ribcage area in last 2 to 3 weeks. She has tried some heating pad and that actually has helped to alleviate some of her pain. No blood in stool. No urinary complaints. After she was evaluated at office, decision was made to admit her to the hospital for further and management evaluation of this problem as I am suspecting acute cholecystitis and/or gallstones. Allergies: NO KNOWN ALLERGIES. Medications: Aspirin 81 mg daily, atorvastatin 20 mg daily at bedtime, Jardiance 25 mg daily with breakfast, Ferrocite 1 tablet by mouth every other day, gemfibrozil 600 mg 2 times a day, lisinopril 10 mg daily in the evening, magnesium oxide 250 mg 2 times a day, omeprazole 40 mg daily, potassium chloride 99 mg daily, ropinirole 0.5 mg daily at bedtime. Past Medical History: Significant for type 2 diabetes mellitus, hypertension, mixed hyperlipidemia, anemia, gastroesophageal reflux disease, and diverticulosis, hypokalemia, and hypomagnesemia. Past Surgical History: Hysterectomy, right knee replacement surgery. Family History: Father , had COPD and lung cancer. Mother , had hypertension and hyperlipidemia. Social History: Negative for smoking and alcohol use. Review of Systems: Gastrointestinal: As mentioned above. All other systems reviewed and negative. Physical Examination: Vital Signs: Height 5 feet 2 inches, weight 136 pounds, temperature 97.3, pulse 78, respiratory rate 18, blood pressure 184/83, oxygen saturation 97%. General: Awake, alert, oriented, not in distress. HEENT: Head atraumatic, normocephalic. Conjunctivae nonerythematous. Sclerae white. Mouth, no thrush or edema noted. Ears/Nose, no mass, lesion, discharge noted. Neck: Supple. No JVD, lymph nodes, bruit, thyromegaly noted. Lungs: Bilateral good equal air entry. Clear to auscultation. No rhonchi. No rales. Heart: Normal heart sounds, no murmur or gallop. Abdomen: Abdominal exam shows tenderness in the right upper quadrant. No rebound tenderness. Bowel sounds normoactive. No hepatosplenomegaly. No bruit. Extremities: No leg edema. No calf tenderness. Skin: No rash, ulcer, cellulitis. Lymphatics: No lymph node enlargement in neck, supraclavicular, infraclavicular region. Neuro: No focal neurological deficit. Chest: Unremarkable. External Genitalia: Deferred. Rectal: Deferred. Laboratory Data: WBC 6.9, hemoglobin 12.3, platelets 246, sodium 139, potassium 3.9, chloride 105, bicarb 30, BUN 12, creatinine 0.50, liver function tests unremarkable, chest x-ray no acute changes. Impression: 1. Right upper quadrant abdominal pain. 2. Hypertension. 3. Mixed hyperlipidemia. 4. Type 2 diabetes mellitus. 5. Gastroesophageal reflux disease. 6. Diverticulosis. Plan: We will go ahead and admit the patient to hospital for further evaluation and management of this problem. The patient is appropriate for inpatient and is expected to spend 2 midnights in hospital. We will start her on clear liquid diet and keep her n.p.o. after midnight. We will get abdominal ultrasound done tomorrow morning and I am suspecting gallstones and/or acute cholecystitis as underlying etiology for her right upper quadrant abdominal pain and I have discussed details with her. We will consult general surgeon, Dr. Fuentes, and I did call him and discuss details with him and requested consultation and he will see the patient in the morning. For diabetes, we will go ahead and manage it with sliding scale insulin. For her hypertension, we will continue antihypertensive medication per order. For hyperlipidemia, we will continue her statin therapy per order. We will use SCD for DVT and I will see her tomorrow morning for followup. NATHEN/MODL Voice ID: [id number]
[2023-11-13 04:16] LABS: Anion Gap 8.6 mEq/L (5.0-15.0); Potassium 3.6 mEq/L (3.5-5.1)
[2023-11-13] MEDS: POTASSIUM CL SA 10 MEQ TAB PO ONE (09:08)
[2023-11-13 09:12] VITALS: BP 140/71; TEMP 97.6
--- NOTE | 2023-11-13 21:15 | DS ---
Date of Discharge: 11/13/2023 Disposition: Discharged to go home. Physical Examination: HEENT: Unremarkable. Lungs: Clear to auscultation. Heart: Sounds normal. Abdomen: Soft. Bowel sounds normal. No guarding, rigidity, tenderness, distention. Extremities: No leg edema. Laboratory Data: Upon admission, white count 6.9, hemoglobin 12.3, platelets 246, and last chemistry today, sodium 142, potassium 3.6, chloride 109, bicarb 28, BUN 7, creatinine 0.51, glucose 168. Upo n admission, sodium 139, potassium 3.9, chloride 105, bicarb 30, BUN 12, creatinine 0.50, glucose 121 . Liver function tests unremarkable. Her abdominal ultrasound was negative for gallstone or acute c holecystitis, but it did show evidence of fatty liver disease and small benign liver lesions. Her CA T scan of the abdomen showed subcentimeter cystic lesion in the pancreatic body, could represent smal l intraductal papillary mucinous neoplasm. No pancreatic ductal dilatation. HIDA scan showed reduce d ejection fraction of 30%. Chest x-ray was negative. Discharge Medications And Instructions: 1.Continue all prior home medications. 2.Keep surgical area dry for 48 hours and then may remove outer dressing and shower. 3.Keep Steri-Strips intact. 4.Tylenol 500 mg by mouth 4 times a day as needed for pain. 5.Follow up at my office next week. 6.Follow with Dr. Fuentes in 2 weeks. Hospital Course: This is an 78-year-old very pleasant female patient, who was admitted to the hospit al with 2 to 3 weeks' history of right upper quadrant abdominal pain. Please see dictated H and P fo r more information. The patient was evaluated at the office, decision was made to admit her to the ospital. Ultrasound of abdomen came back negative for any gallstones or acute cholecystitis. The pa tiejennie did have right upper quadrant tenderness, so next test we ordered was CT scan of the abdomen an d pelvis that did not explain any underlying etiology for her right upper quadrant abdominal pain, so subsequently we ordered HIDA scan for her, and her HIDA scan did come back abnormal and Dr. Fuentes was consulted from General Surgery and he communicated with the patient regarding this and offered er surgical intervention, which the patient was agreeable and she had laparoscopic cholecystectomy do ne yesterday. Postoperatively, her condition was stable. This morning, she is feeling fine. She is ambulating very well, tolerating diet very well. Asked her to stay on bland diet for about 1 week a nd then advance her diet as she tolerates and ambulation was encouraged. She really does not have an y pain, so there is no need for any pain medication, but she was advised to use Tylenol as needed for pain. Final Diagnoses: 1.Biliary dyskinesia. 2.Hypertension. 3.Type 2 diabetes mellitus. 4.Mixed hyperlipidemia. 5.Gastroesophageal reflux disease. 6.Diverticulosis. NATHEN/MODL Voice ID: [id number] Report ID: [id number]
== END 2023-11-13 09:30 | disposition home or self-care (01) | DRG 418 ==
LOC: 2ND 18:42
PROVIDERS: ADMIT Internal Medicine; ATTEND Internal Medicine
PROC: 0FT44ZZ Resection of Gallbladder, Percutaneous Endoscopic Approach (ICD-10-PCS; principal; 2023-11-12 10:45)
DX: K81.0 Acute cholecystitis (principal); K86.2 Cyst of pancreas; I10 Essential (primary) hypertension; K21.9 Gastro-esophageal reflux disease without esophagitis; E11.9 Type 2 diabetes mellitus without complications; K76.9 Liver disease, unspecified; E78.2 Mixed hyperlipidemia; K82.8 Other specified diseases of gallbladder; K76.0 Fatty (change of) liver, not elsewhere classified; K57.90 Diverticulosis of intestine, part unspecified, without perforation or abscess without bleeding; D49.0 Neoplasm of unspecified behavior of digestive system; Z79.82 Long term (current) use of aspirin; Z91.09 Other allergy status, other than to drugs and biological substances; Z96.651 Presence of right artificial knee joint; Z79.899 Other long term (current) drug therapy; Z90.710 Acquired absence of both cervix and uterus
CPT/HCPCS: 36415; 71046; 74177; 76700; 78227; 80048; 80053; 81003; 82947; 83735; 85025; 88304; 93005; 94010; A9537; J2001; J2405; J2704; J2710; J2805; J3010; J7030; J7042; Q9967

== ENCOUNTER 2025-06-11 13:35 | Emergency (ER) | payer OTHER ==
--- OUTSIDE RECORDS SUMMARY | 2025-06-11 13:39 | XMS REPORT | Continuity of Care Document ---
Author Name Unknown Address [address] [place] [address] [address] [place] [address] Organization [facility] Address [address] [place] [address] [address] [place] [address] Care Team Providers Care Hatchery Helper Name Role Phone Liam Mccray Attending Clinician Unavailable Payers Payer Name Policy Type Policy Number Effective Date Expirati on Date Source [employer] MED[employer]ARE 53 [id number] 2019 00:00:00 [facility] Problems Condition Name Condition Details Condition Category Status Onset Date Resolution Date Last Treatment Date Treating Clinician Comments Source [id number] Status post total right knee replacemen t Problem [facility] [id number] Arthritis of knee, left Problem [facility] [id number] Arthritis of knee, right Problem [facility] [id number] Primary osteoarthr itis of both knees Problem [facility] [id number] Pain, joint, knee, right Problem [facility] [id number] Pain, joint, knee, left Problem [facility] Social History Social Habit Start Date Stop Date Quantity Comments Source Sex Assigned At [facility] History of Tobacco Use [facility] Smoking Status Start Date Stop Date Source Never Smoker [facility] Medications Ordered Medication Name Filled Medication Name [...] MG HYDROcodone -Acetaminop hen 7.5-325 MG 2022-0 7- 00:00: 00 No 1{table t_as_ne eded} [...] Xarelto 10 MG Omeprazole Omeprazole No Omeprazole Lisinopril Lisinopril No Lisinopril Atorvastati n Calcium Atorvastati n Calcium No Atorvastat in Calcium Magnesium Magnesium No Magnesium Atorvastati n Calcium Atorvastati n Calcium No Atorvastat in Calcium Atorvastati n Calcium Atorvastati n Calcium No Atorvastat in Calcium Atorvastati n Calcium Atorvastati n Calcium No Atorvastat in Calcium Atorvastati n Calcium Atorvastati n Calcium No Atorvastat in Calcium Atorvastati n Calcium Atorvastati n Calcium No Atorvastat in Calcium Atorvastati n Calcium Atorvastati n Calcium No Atorvastat in Calcium Atorvastati n Calcium Atorvastati n Calcium No Atorvastat in Calcium Atorvastati n Calcium Atorvastati n Calcium No Atorvastat in Calcium Magnesium Magnesium No Magnesium Atorvastati n Calcium Atorvastati n Calcium No Atorvastat in Calcium ASA-APAP-Ca ff [place] ASA-APAP-Ca ff Buffered No ASA-APAP-C aff [place]fered Gemfibrozil Gemfibrozil No Ge mfibrozi l Vital Signs Vital Name Observation Time Observation Value Comments S [place] height 2022-08-19 10:00:00 62 [in_i] Commo n [facility] weight 2022-08-19 10:00:00 133 [lb_av] Comm on [facility] temperature 2022-08-19 10:00:00 97.6 [degF] Com [facility] bmi 2022-08-19 10:00:00 24.32 kg/m2 Comm on [facility] blood pressure systolic 2022-08-19 10:00:00 124 mm[Hg] Common [facility] blood pressure diastolic 2022-08-19 10:00:00 72 mm[Hg] [facility] height 2022-08-05 11:00:00 62 [in_i] Commo n [facility] weight 2022-08-05 11:00:00 133 [lb_av] Comm on [facility] temperature 2022-08-05 11:00:00 97.5 [degF] Com [facility] bmi 2022-08-05 11:00:00 24.32 kg/m2 Comm on [facility] blood pressure systolic 2022-08-05 11:00:00 121 mm[Hg] [facility] blood pressure diastolic 2022-08-05 11:00:00 73 mm[Hg] [facility] height 2022-07-18 11:00:00 62 [in_i] Commo n [facility] weight 2022-07-18 11:00:00 135 [lb_av] Comm on [facility] temperature 2022-07-18 11:00:00 98.0 [degF] Com [facility] bmi 2022-07-18 11:00:00 24.69 kg/m2 Comm on [facility] blood pressure systolic 2022-07-18 11:00:00 125 mm[Hg] Common [facility] t [facility] blood pressure diastolic 2022-07-18 11:00:00 75 mm[Hg] Common [facility] height 2022-07-08 14:00:00 62 [in_i] Commo n [facility] weight 2022-07-08 14:00:00 140 [lb_av] Comm on [facility] temperature 2022-07-08 14:00:00 97.3 [degF] Com [facility] bmi 2022-07-08 14:00:00 25.6 kg/m2 Commo n [facility] blood pressure systolic 2022-07-08 14:00:00 110 mm[Hg] Common [facility] blood pressure diastolic 2022-07-08 14:00:00 60 mm[Hg] Common [facility] height 2022-06-10 10:00:00 62 [in_i] Commo n [facility] weight 2022-06-10 10:00:00 140 [lb_av] Comm on [facility] temperature 2022-06-10 10:00:00 97.0 [degF] Com [facility] bmi 2022-06-10 10:00:00 25.6 kg/m2 Commo n [facility] blood pressure systolic 2022-06-10 10:00:00 136 mm[Hg] Common [facility] blood pressure diastolic 2022-06-10 10:00:00 80 mm[Hg] Common [facility] height 2022-04-24 10:00:00 62 [in_i] Commo n [facility] weight 2022-04-24 10:00:00 140 [lb_av] Comm on [facility] temperature 2022-04-24 10:00:00 97.2 [degF] Com mon [facility] bmi 2022-04-24 10:00:00 25.6 kg/m2 Commo n [facility] blood pressure systolic 2022-04-24 10:00:00 130 mm[Hg] Common [facility] blood pressure diastolic 2022-04-24 10:00:00 78 mm[Hg] Common [facility] height 2022-04-10 10:00:00 62 [in_i] Commo n [facility] weight 2022-04-10 10:00:00 140 [lb_av] Comm on [facility] bmi 2022-04-10 10:00:00 25.6 kg/m2 Commo n [facility] blood pressure systolic 2022-04-10 10:00:00 134 mm[Hg] Common [facility] blood pressure diastolic 2022-04-10 10:00:00 72 mm[Hg] Common [facility] height 2022-03-27 09:00:00 62 [in_i] Commo n [facility] weight 2022-03-27 09:00:00 144 [lb_av] Comm on [facility] bmi 2022-03-27 09:00:00 26.34 kg/m2 Comm on [facility] blood pressure systolic 2022-03-27 09:00:00 132 mm[Hg] Common [facility] blood pressure diastolic 2022-03-27 09:00:00 70 mm[Hg] Common [facility] height 2022-03-07 11:00:00 62 [in_i] Commo n [facility] weight 2022-03-07 11:00:00 144 [lb_av] Comm on [facility] bmi 2022-03-07 11:00:00 26.34 kg/m2 Comm on [facility] blood pressure systolic 2022-03-07 11:00:00 124 mm[Hg] Common [facility] blood pressure diastolic 2022-03-07 11:00:00 72 mm[Hg] Common [facility] height 2022-02-06 13:00:00 62 [in_i] Commo n [facility] weight 2022-02-06 13:00:00 144.7 [lb_av] Co mmon [facility] bmi 2022-02-06 13:00:00 26.46 kg/m2 Comm on [facility] blood pressure systolic 2022-02-06 13:00:00 125 mm[Hg] Common [facility] blood pressure diastolic 2022-02-06 13:00:00 75 mm[Hg] [facility] Encounters Start Date/Time End Date/Time Encounter Type Admission Type Attending Clinicians Care Facility Care Department Encounter ID Source 2022-07-17 09:06:03 Outpatient Liam Mccray [facility] [id number] [facility] 2022-06-10 09:51[facility] [id number] [facility] 2022-05-03 11:44:02 Outpatient Liam Mccray [facility] [id number] [facility] 2022-04-30 08:51:03 Outpatient Liam Mccray [facility] [id number] [facility] 2022-04-10 09:53:03 Outpatient Mccray, Liam [facility] [id number] [facility] 2022-03-27 08:55:03 Outpatient [facility] [id number] [facility] 2022-08-19 00:00:00 2022-08-19 00:00:00 NON-BILLAB LE VISIT [facility] [id number] [facility] 2022-08-05 00:00:00 2022-08-05 00:00:00 NON-BILLAB LE VISIT [facility] [id number] [facility] 2022-07-18 00:00:00 2022-07-18 00:00:00 (PO) Post Op [facility] [id number] [facility] 2022-07-08 00:00:00 2022-07-08 00:00:00 NON-BILLAB LE VISIT [facility] [id number] [facility] 2022-07-01 00:00:00 2022-07-01 00:00:00 (TEL) [facility] [id number] [facility] 2022-06-17 00:00:00 2022-06-17 00:00:00 (TEL) [facility] [id number] [facility] 2022-06-10 00:00:00 2022-06-10 00:00:00 Postop visit [facility] [id number] [facility] 2022-04-24 00:00:00 2022-04-24 00:00:00 NON-BILLAB LE VISIT [facility] [id number] [facility] 2022-04-19 00:00:00 2022-04-19 00:00:00 (TEL) [facility] [id number] [facility] 2022-04-10 00:00:2022-04-10 00:00:00 NON-BILLAB LE VISIT [facility] [id number] [facility] 2022-03-27 00:00:00 2022-03-27 00:00:00 (TEL) [facility] [id number] [facility] 2022-03-27 00:00:00 2022-03-27 00:00:00 NON-BILLAB LE VISIT [facility] [id number] [facility] 2022-03-07 00:00:00 2022-03-07 00:00:00 OFFICE VISIT ESTAB PT LEVEL 3 [facility] [id number] [facility] 2022-03-07 00:00:00 2022-03-07 00:00:00 (TEL) [facility] [id number] [facility] 2022-02-12 00:00:00 2022-02-12 00:00:00 (TEL) [facility] [id number] [facility] 2022-02-06 00:00:00 2022-02-06 00:00:00 OFFICE VISIT NEW PT LEVEL 3 [facility] [id number] [facility]
--- NOTE | 2025-06-11 14:22 | RAD REPORT ---
Exam:Humerus Left CLINICAL HISTORY: Left arm pain FINDINGS: Mildly displaced left humeral neck fracture. No dislocation
--- NOTE | 2025-06-11 14:22 | RAD REPORT ---
Exam:Shoulder Left 2+ Views HISTORY: Left shoulder pain FINDINGS: Mildly displaced left humeral neck fracture. No dislocation
--- NOTE | 2025-06-11 14:27 | ER ---
Nurse's Notes [facility] Name: Angle Hammer Age: 79 yrs Sex: Female : 1945 Arrival Date: 06/11/2025 Time: 13:35 Bed 13 Private MD: Diagnosis: Humeral neck fracture left humerus, nondisplaced Presentation: 06/11 13:43 Chief complaint: Patient states: tripped and fell yesterday about 1 pm landing on left me1 arm. Pain to lateral left upper arm. Pain 9/10, worse with touch or movement. Coronavirus screen: At this time, the client does not indicate any symptoms associated with coronavirus-19. Ebola Screen: No symptoms or risks identified at this time. Initial Sepsis Screen: Does the patient meet any 2 criteria? HR > 90 bpm. Does the patient have a suspected source of infection? No. Patient's initial sepsis screen is negative. Risk Assessment: Do you want to hurt yourself or someone else? Patient reports no desire to harm self or others. Onset of symptoms was June 10, 2025 at 13:00. 13:43 Method Of Arrival: Ambulatory [facility] 13:43 Acuity: ARELI 4 me1 14:52 Care prior to arrival: None. Mechanism of Injury: Fall. os Triage Assessment: 14:52 General: Appears in no apparent distress. comfortable, well groomed, Behavior is calm, os cooperative, appropriate for age. Historical: - Allergies: 13:44 Red Dye; me1 - PMHx: 13:44 Diabetes - NIDDM; High Cholesterol; Hypertension; me1 - PSHx: 13:44 Operative procedure on knee; Cholecystectomy; me1 - Immunization history:: Adult Immunizations up to date. - Infectious Disease History:: Denies. - Immunization history: Last tetanus immunization: - up to date. - Social history:: Smoking status: Patient denies any tobacco usage or history of. Screenin:46 [facility] ED Fall Risk Assessment (Adult) History of falling in the last 3 months, os including since admission Yes- single mechanical fall (1 pt) Confusion or Disorientation No (0 pts) Intoxicated or Sedated No (0 pts) Impaired Gait No (0 pts) Mobility Assist Device Used No (0 pt) Altered Elimination No (0 pt) Score/Fall Risk Level 0 - 2 = Low Risk. Abuse screen: Denies threats or abuse. Nutritional screening: No deficits noted. Tuberculosis screening: No symptoms or risk factors identified. Primary Survey: 14:49 NO uncontrolled hemorrhage observed. A: The client is awake and alert. The airway is os patent. Breathing/Chest: Spontaneous respiratory effort, equal unlabored respirations, breath sounds clear bilaterally, regular pattern, symmetrical chest rise and fall. Circulation: No external hemorrhage present. Regular and strong central pulse, skin warm/dry/normal color. Disability Pupils are equal, round, reactive to light and accommodation. Client is alert. Reassessment Alertness and Airway: Awake and alert. The airway is patent. Breathing: Spontaneous respiratory effort, equal unlabored respirations, breath sounds clear bilaterally, regular pattern with symmetrical chest rise and fall. Respiratory effort Spontaneous Unlabored Circulation: No external hemorrhage noted. Regular and strong central pulse, skin warm/dry/normal color. Disability:. 14:53 Exposure/Environment: A warming method has been applied: A warm blanket has been os provided to the patient. Assessment: 14:45 Reassessment: Patient appears in no apparent distress at this time. No changes from os previously documented assessment. Pain: Complains of pain in left arm. Neuro: No deficits noted. Cardiovascular: No deficits noted. Respiratory: No deficits noted. Vital Signs: 13:43 BP 117 / 75; Pulse 91; Resp 16; Temp 98.1; Pulse Ox 96% ; Weight 58.97 kg; Height 5 ft. me1 2 in. ; Pain 9/10; 14:45 BP 152 / 88; Pulse 86; Resp 16; Temp 98.1; Pulse Ox 98% on R/A; os 13:43 Body Mass Index 23.78 (58.97 kg, 157.48 cm) me1 13:43 Pain Scale: Adult me1 Raymundo Coma Score: 14:51 Eye Response: spontaneous(4). Motor Response: obeys commands(6). Verbal Response: os oriented(5). Total: 15. Trauma Score (Adult): 14:51 Eye Response: spontaneous(1); Verbal Response: oriented(1); Motor Response: obeys os commands(2); Systolic BP: > 89 mm Hg(4); Respiratory Rate: 10 to 29 per min(4); Hinckley Score: 15; Trauma Score: 12 ED Course: 13:38 Patient arrived in ED. ts1 13:42 Bruce Mchugh MD is Attending Physician. sp3 13:44 Triage completed. me1 13:44 Arm band placed on Patient placed in an exam room. me1 14:05 Shoulder Left (2 View) XRAY In Process Unspecified. EDMS 14:05 Humerus Left XRAY In Process Unspecified. EDMS 14:27 Clinton Valentin MD is Referral Physician. sp3 14:52 No provider procedures requiring assistance completed. Patient did not have IV access os during this emergency room visit. 14:53 Patient has correct armband on for positive identification. Fall risk band placed. Bed os in low position. Call light in reach. Side rails up X2. Provided Education on: . 14:54 Patient maintains SpO2 saturation greater than 95% on room air. os Administered Medications: 14:44 Drug: HYDROcodone-acetaminophen PO 5 mg-325 mg 1 tabs PO once Route: PO; os Medication: 14:54 VIS not applicable for this client. os Intake: 14:53 PO: 0ml; Total: 0ml. os Outcome: 14:27 Discharge ordered by MD. sp3 14:53 Discharged to home ambulatory, os 14:53 Condition: improved 14:53 Discharge instructions given to patient, family, Instructed on discharge instructions, follow up and referral plans. no drinking with medication, medication usage, Demonstrated understanding of instructions, follow-up care, 14:54 Patient's length of stay was not longer than 2 hours. os 15:01 Patient left the ED. os Signatures: Dispatcher [employer] EDDE Bruce Mchugh MD MD sp3 Katherin Price, RN RN os Katty Manley PAS PAS ts1 Kori Jimenez, RN RN me1
--- NOTE | 2025-06-11 14:27 | EDPHYS ---
Physician Documentation [facility] Name: Angle Hammer Age: 79 yrs Sex: Female : 1945 Arrival Date: 06/11/2025 Time: 13:35 Bed 13 Private MD: ED Physician Bruce Mchugh HPI: 06/11 14:20 This 79 yrs old Female presents to ER via Ambulatory with complaints of Fall Injury, sp3 Arm Pain. 14:20 79-year-old female with history of diabetes, hypertension, hyperlipidemia presents to 3 the ED with mechanical fall yesterday injuring her left shoulder with pain from the shoulder into the proximal humerus/arm. She denies any other injury or hitting her head. She denies any numbness or tingling or inability use her hand or forearm. She is having a hard time abducting her upper extremity based on her report. ROS otherwise negative.. Historical: - Allergies: 13:44 Red Dye; me1 - PMHx: 13:44 Diabetes - NIDDM; High Cholesterol; Hypertension; me1 - PSHx: 13:44 Operative procedure on knee; Cholecystectomy; me1 - Immunization history:: Adult Immunizations up to date. - Infectious Disease History:: Denies. - Immunization history: Last tetanus immunization: - up to date. - Social history:: Smoking status: Patient denies any tobacco usage or history of. ROS: 14:21 Constitutional: Negative for fever, chills, and weight loss, Eyes: Negative for injury, sp3 pain, redness, and discharge, ENT: Negative for injury, pain, and discharge, Neck: Negative for injury, pain, and swelling, Cardiovascular: Negative for chest pain, palpitations, and edema, Respiratory: Negative for shortness of breath, cough, wheezing, and pleuritic chest pain, Abdomen/GI: Negative for abdominal pain, nausea, vomiting, diarrhea, and constipation, Back: Negative for injury and pain, Skin: Negative for injury, rash, and discoloration, Neuro: Negative for headache, weakness, numbness, tingling, and seizure, Psych: Negative for depression, anxiety, suicide ideation, homicidal ideation, and hallucinations, Allergy/Immunology: Negative for hives, rash, and allergies, Endocrine: Negative for neck swelling, polydipsia, polyuria, polyphagia, and marked weight changes, 14:21 All other systems are negative, Exam: 14:22 Constitutional: This is a well developed, well nourished patient who is awake, alert, sp3 and in no acute distress. Head/Face: Normocephalic, atraumatic. Eyes: Pupils equal round and reactive to light, extra-ocular motions intact. Lids and lashes normal. Conjunctiva and sclera are non-icteric and not injected. Cornea within normal limits. Periorbital areas with no swelling, redness, or edema. ENT: Nares patent. No nasal discharge, no septal abnormalities noted. External auditory canals are clear. Oropharynx with no redness, swelling, or masses, exudates, or evidence of obstruction, uvula midline. Mucous membranes moist. Neck: Trachea midline, no thyromegaly or masses palpated, and no cervical lymphadenopathy. Supple, full range of motion without nuchal rigidity, or vertebral point tenderness. No Meningismus. Chest/axilla: Normal chest wall appearance and motion. Nontender with no deformity. No lesions are appreciated. Cardiovascular: Regular rate and rhythm with a normal S1 and S2. No gallops, murmurs, or rubs. Normal PMI, no JVD. No pulse deficits. Respiratory: Lungs have equal breath sounds bilaterally, clear to auscultation and percussion. No rales, rhonchi or wheezes noted. No increased work of breathing, no retractions or nasal flaring. Abdomen/GI: Soft, non-tender, with normal bowel sounds. No distension or tympany. No guarding or rebound. No evidence of tenderness throughout. Back: No spinal tenderness. No costovertebral tenderness. Full range of motion. Skin: Warm, dry with normal turgor. Normal color with no rashes, no lesions, and no evidence of cellulitis. Neuro: Awake and alert, GCS 15, oriented to person, place, time, and situation. Cranial nerves II-XII grossly intact. Motor strength 5/5 in all extremities. Sensory grossly intact. Cerebellar exam normal. Normal gait. Psych: Awake, alert, with orientation to person, place and time. Behavior, mood, and affect are within normal limits. 14:22 Musculoskeletal/extremity: Patient with pain to palpation on the lateral deltoid extending into the lateral humerus area. Elbow exam normal. Hand exam normal. Distal neurovascular exam normal. Chest and back exam normal. Clavicle normal.. Vital Signs: 13:43 BP 117 / 75; Pulse 91; Resp 16; Temp 98.1; Pulse Ox 96% ; Weight 58.97 kg; Height 5 ft. me1 2 in. ; Pain 9/10; 14:45 BP 152 / 88; Pulse 86; Resp 16; Temp 98.1; Pulse Ox 98% on R/A; os 13:43 Body Mass Index 23.78 (58.97 kg, 157.48 cm) me1 13:43 Pain Scale: Adult me1 Raymundo Coma Score: 14:51 Eye Response: spontaneous(4). Motor Response: obeys commands(6). Verbal Response: os oriented(5). Total: 15. Trauma Score (Adult): 14:51 Eye Response: spontaneous(1); Verbal Response: oriented(1); Motor Response: obeys os commands(2); Systolic BP: > 89 mm Hg(4); Respiratory Rate: 10 to 29 per min(4); Millwood Score: 15; Trauma Score: 12 MDM: 13:48 Medical Screening Exam initiated sp3 14:23 Data reviewed: vital signs, nurses notes, radiologic studies. ED course: X-ray sp3 demonstrates mildly displaced humeral neck fracture. Will place in a sling for comfort and send patient home on tramadol with follow-up to her orthopedist Dr. Valentin.. 06/11 13:48 Order name: Shoulder Left (2 View) XRAY; Complete Time: 14:24 sp3 06/11 13:48 Order name: Humerus Left XRAY; Complete Time: 14:24 sp3 06/11 13:48 Order name: NPO; Complete Time: 14:26 sp3 06/11 14:26 Order name: Sling; Complete Time: 14:35 sp3 Administered Medications: 14:44 Drug: HYDROcodone-acetaminophen PO 5 mg-325 mg 1 tabs PO once Route: PO; os Disposition Summary: 06/11/25 14:27 Discharge Ordered Notes: Location: Home sp3 Condition: Stable sp3 Diagnosis - Humeral neck fracture left humerus, nondisplaced sp3 Followup: sp3 - With: Clinton Valentin MD - When: Upon discharge from the Emergency Department - Reason: Recheck today's complaints, Continuance of care Discharge Instructions: - Discharge Summary Sheet sp3 - Humerus Fracture Treated With Immobilization sp3 - How to Use a Sling sp3 Forms: - Medication Reconciliation Form sp3 - Antibiotic Education sp3 - Prescription Opioid Use sp3 - Patient Portal Instructions sp3 - Leadership Thank You Letter sp3 Prescriptions: - Tramadol 50 mg Oral Tablet - take 1 tablet ORAL route every 8 hours as needed; 12 tablet; Refills: 0, sp3 Product Selection Permitted Signatures: Dispatcher [employer] Bruce Law MD MD sp3 Katherin Price RN RN os Kori Jimenez RN RN me1 Corrections: (The following items were deleted from the chart) 14:26 14:23 ED course: X-rays negative of both left shoulder and left humerus. Will place in sp3 a sling for comfort and send patient home on tramadol.. sp3
[2025-06-11] MEDS ORDERED: HYDROCODONE/APAP 5/325 MG TAB ONE (14:40)
[2025-06-11 15:36] VITALS: TEMP 98.1
[2025-06-11 15:38] VITALS: BP 152/88; O2SAT 98
== END 2025-06-11 15:01 | disposition home or self-care (01) ==
LOC: ER 13:35
DX: S42.215A Unspecified nondisplaced fracture of surgical neck of left humerus, initial encounter for closed fracture (principal); W18.30XA Fall on same level, unspecified, initial encounter
CPT/HCPCS: 99283